=== PATIENT | male | born 1960 | race Caucasian/White ===

== ENCOUNTER 2024-10-18 18:28 | Inpatient (IN) ==
--- NOTE | 2024-10-18 18:47 | Emergency Department Note ---
ED Provider Note History of Present Illness Chief Complaint: Dizziness Stated Complaint: DIZZINESS, FALL, R SHOULDER & ARM PAIN Time Seen by Provider: 10/18/24 18:46 Source: patient Mode of arrival: ambulatory Limitations: no limitations Patient is a 64-year-old male who presents to the emergency department via EMS with complaints of dizziness and several falls over the last couple days. Patient notes that he is taking Coumadin but denies hitting his head. Patient has some bruising to his right upper extremity and concerns about weakness and swelling in his bilateral lower extremities. Patient also reports that he is having abdominal pain and nausea as well. Home Medications Medication Instructions Recorded Confirmed Type atorvastatin 40 mg tablet 40 mg PO DAILY 10/18/24 10/18/24 History escitalopram oxalate 10 mg tablet 10 mg PO DAILY 10/18/24 10/18/24 History fenofibrate micronized 134 mg 134 mg PO DAILY 10/18/24 10/18/24 History capsule gabapentin 100 mg capsule 100 mg PO HS 10/18/24 10/18/24 History lisinopril 20 mg tablet 20 mg PO DAILY 10/18/24 10/18/24 History meclizine 25 mg tablet 25 mg PO BID PRN Dizziness 10/18/24 10/18/24 History metformin 500 mg tablet 500 mg PO DAILY 10/18/24 10/18/24 History metoprolol tartrate 50 mg tablet 25 mg PO BID 10/18/24 10/18/24 History [id number]-uvi-[id number] acid-vit 1 tab PO DAILY 10/18/24 10/18/24 History K-lycop 400 mcg-20 mcg-370 mcg tablet (Men's 50 Plus Multivitamin) omeprazole 20 mg capsule,delayed 20 mg PO DAILYBB 10/18/24 10/18/24 History release oxybutynin chloride 10 mg 10 mg PO DAILY 10/18/24 10/18/24 History tablet,extended release 24 hr triamcinolone acetonide 0.1 % 1 applic topical BID PRN SKIN 10/18/24 10/18/24 History topical cream IRRITATIONS warfarin 5 mg tablet 5 mg PO DAILY 10/18/24 10/18/24 History Allergies Allergy/AdvReac Type Severity Reaction Status Date / Time No Known Allergies Allergy Verified 10/18/24 19:28 Past Med/Surg History Problem List (Updated 10/23/24 @ 01:12 by FRANCIS Zamora) Adjustment disorder with mixed anxiety and depressed mood Constipation Hematochezia Melena Traumatic hematoma of right upper arm Dyslipidemia, goal LDL below 70 HTN (hypertension) Ascending aortic aneurysm Nonobstructive atherosclerosis of coronary artery Hx of mitral valve replacement with mechanical valve H/O mechanical aortic valve replacement Upper GI bleeding (Acute) Symptomatic anemia (Acute) Calculus of ureter (Acute) Calculus of ureter (Acute) Elevated INR (Acute) Kidney calculus (Acute 09/17/13) Medical History GERD (gastroesophageal reflux disease) H/O: HTN (hypertension) Cardiac valvulopathy Surgical History Heart valve replaced Social History Smoking Status: Former smoker Do You Dip or Chew Tobacco: No; Hx Alcohol Use: No Hx Substance Use: Yes Preferred Language: Namibian Communication Ability: Effective Shoe Repairer Helper Required: No Beliefs That Will Affect Care: None Current Living Situation: Spouse Other Information That Helps Us Care for You: No Feels Safe at Home: Yes Safety Concerns: Feels Safe At This Time Assistive Devices: None Physical Exam Vital Signs Vital Signs - 24 hr 10/18/24 18:44 Pulse Rate 63 VITAL SIGNS - Vital signs and nursing notes were reviewed. GENERAL -64-year-old male appearing their stated age, who is in no acute distress. Communicates well with provider and answers questions appropriately. Patient's is at bedside. HEAD - Normocephalic, Atraumatic. No Puentes's Sign or Raccoon's Eyes. No depressed skull fractures palpable. EYES - PERRL with EOMI bilaterally. Sclera anicteric. Conjunctiva pink and moist with no injection. EARS - No deformities of external structures noted on gross examination bilaterally. NOSE - Midline and without cyanosis. No epistaxis or purulent drainage noted. NECK - Neck with FROM. Supple to palpation. No lymphadenopathy noted. LUNGS - Chest wall symmetric without accessory muscle use, intercostals retractions, or central cyanosis. Normal vesicular breath sounds CTA B/L. No wheezes, rales, or rhonchi appreciated. CARDIAC - RRR with S1/S2. No murmur, rubs, or gallops appreciated. ABDOMEN- Soft and nontender. No palpable masses or ascites. Patient has positive bowel sounds in all 4 quadrants. EXTREMITIES -patient has significant ecchymosis to his right upper extremity. Patient notes some discomfort in that area. Patient has full active range of motion of his bilateral upper and lower extremities. NEUROLOGIC -Sensory intact to light touch throughout. PSYCH - A&Ox3 and cooperates fully with examiner. Pt is very pleasant and interacts well with examiner Course Administered Medications Atorvastatin Calcium (Atorvastatin 40 Mg Tab) 40 mg PO DAILY [facility] Stop: 11/18/24 08:59 Last Admin: 10/22/24 07:47 Dose: 40 mg Documented By: Admin: 10/21/24 08:49 Dose: 40 mg Documented By: Admin: 10/20/24 08:01 Dose: 40 mg Documented By: Admin: 10/19/24 09:23 Dose: 40 mg Documented By: EDU Escitalopram Oxalate (Escitalopram Oxalate 10 Mg Tab) 5 mg PO DAILY [facility] Stop: 11/21/24 08:59 Last Admin: 10/22/24 07:46 Dose: 5 mg Documented By: SHARON Fenofibrate (Fenofibrate Nanocrystallized 145 Mg Tablet) 145 mg PO DAILY [facility] Stop: 11/18/24 08:59 Last Admin: 10/22/24 07:47 Dose: 145 mg Documented By: Admin: 10/21/24 08:49 Dose: 145 mg Documented By: Admin: 10/20/24 08:00 Dose: 145 mg Documented By: Admin: 10/19/24 09:23 Dose: 145 mg Documented By: EDU Gabapentin (Gabapentin 100 Mg Cap) 100 mg PO HS [facility] Stop: 11/18/24 20:59 Last Admin: 10/22/24 21:21 Dose: 100 mg Documented By: Admin: 10/21/24 21:19 Dose: 100 mg Documented By: Admin: 10/20/24 20:22 Dose: 100 mg Documented By: gale Admin: 10/19/24 21:11 Dose: 100 mg Documented By: JONATHAN Heparin Sodium/Dextrose (Heparin 75450 Unit/500 Ml D5w) 25,000 units in 500 mls @ 28 mls/hr IV .[id number] [facility]; Protocol Stop: 11/19/24 09:44 Last Titration: 10/22/24 18:53 Dose: 1,400 units/hr, 28 mls/hr Documented By: ISHAAN Co-signed By: JONATHAN Admin: 10/22/24 12:42 Dose: 1,400 units/hr, 28 mls/hr Documented By: SHARON Co-signed By: HARVEY Titration: 10/22/24 11:37 Dose: Infused Documented By: SHARON Co-signed By: HARVEY Admin: 10/22/24 08:56 Dose: Not Given Documented By: Titration: 10/22/24 06:48 Dose: 1,400 units/hr, 28 mls/hr Documented By: JONATHAN Co-signed By: SHARON Titration: 10/22/24 04:26 Dose: 1,400 units/hr, 28 mls/hr Documented By: JONATHAN Co-signed By: LORIE Titration: 10/21/24 21:16 Dose: 1,400 units/hr, 28 mls/hr Documented By: JONATHAN Co-signed By: FINA Admin: 10/21/24 17:10 Dose: 1,200 units/hr, 24 mls/hr Documented By: SHARON Co-signed By: HARVEY Titration: 10/21/24 17:10 Dose: Infused Documented By: SHARON Co-signed By: HARVEY Titration: 10/21/24 12:53 Dose: 1,200 units/hr, 24 mls/hr Documented By: SHARON Co-signed By: HARVEY Titration: 10/21/24 04:00 Dose: 0 units/hr, 0 mls/hr Documented By: rmt Co-signed By: YOSI Titration: 10/20/24 20:18 Dose: 1,200 units/hr, 24 mls/hr Documented By: rmt Co-signed By: YOSI Titration: 10/20/24 19:09 Dose: 1,000 units/hr, 20 mls/hr Documented By: ESG Co-signed By: YOSI Admin: 10/20/24 10:41 Dose: 1,000 units/hr, 20 mls/hr Documented By: ESG Co-signed By: KARSTEN Insulin Aspart (Insulin Aspart Per Unit Charge) 0 units SC ACHS [facility] Stop: 11/18/24 05:59 Last Admin: 10/22/24 21:21 Dose: Not Given Documented By: Admin: 10/22/24 16:56 Dose: 3 units Documented By: ISHAAN Co-signed By: HARVEY Admin: 10/22/24 12:42 Dose: 2 units Documented By: SHARON Co-signed By: HARVEY Admin: 10/22/24 07:45 Dose: 1 units Documented By: SHARON Co-signed By: DTT Admin: 10/21/24 21:20 Dose: Not Given Documented By: Admin: 10/21/24 17:46 Dose: Not Given Documented By: SHARON Magnesium Oxide (Magnesium Oxide 400 Mg Tab) 400 mg PO BID [facility] Stop: 11/20/24 09:14 Last Admin: 10/22/24 21:21 Dose: 400 mg Documented By: Admin: 10/22/24 07:46 Dose: 400 mg Documented By: Admin: 10/21/24 21:21 Dose: 400 mg Documented By: Admin: 10/21/24 11:13 Dose: 400 mg Documented By: SHARON Melatonin (Melatonin 3 Mg Tab) 3 mg PO HS PRN PRN Reason: Sleep Stop: 11/19/24 20:47 Last Admin: 10/22/24 21:23 Dose: 3 mg Documented By: Admin: 10/21/24 21:22 Dose: 3 mg Documented By: Admin: 10/20/24 21:20 Dose: 3 mg Documented By: gale Metoprolol Tartrate (Metoprolol Tartrate 25 Mg Tab) 25 mg PO BID [facility] Stop: 11/18/24 08:59 Last Admin: 10/22/24 21:22 Dose: 25 mg Documented By: Admin: 10/22/24 07:48 Dose: 25 mg Documented By: Admin: 10/21/24 21:21 Dose: 25 mg Documented By: Admin: 10/21/24 08:49 Dose: 25 mg Documented By: Admin: 10/20/24 20:22 Dose: 25 mg Documented By: gale Admin: 10/20/24 08:00 Dose: 25 mg Documented By: Admin: 10/19/24 21:12 Dose: 25 mg Documented By: Admin: 10/19/24 08:29 Dose: Not Given Documented By: EDU Miscellaneous (Remove Nicoderm Patch) 1 each N/A DAILY@0859 [facility] Stop: 11/21/24 08:58 Last Admin: 10/22/24 07:46 Dose: 1 each Documented By: SHARON Multivitamins/Minerals (Cerovite Adv Formula Tab) 1 tab PO DAILY [facility] Stop: 11/18/24 08:59 Last Admin: 10/22/24 07:47 Dose: 1 tab Documented By: Admin: 10/21/24 08:48 Dose: 1 tab Documented By: Admin: 10/20/24 08:00 Dose: 1 tab Documented By: Admin: 10/19/24 09:23 Dose: 1 tab Documented By: DEU Nicotine (Nicotine 7 Mg/24 Hr Tdsy) 1 patch TD QAM [facility] Stop: 11/20/24 10:59 Last Admin: 10/22/24 07:46 Dose: 1 patch Documented By: Admin: 10/21/24 11:13 Dose: 1 patch Documented By: SHARON Oxybutynin Chloride (Oxybutynin Chloride Xl 5 Mg Tabcr) 10 mg PO DAILY [facility] Stop: 11/18/24 08:59 Last Admin: 10/22/24 07:47 Dose: 10 mg Documented By: Admin: 10/21/24 08:49 Dose: 10 mg Documented By: Admin: 10/20/24 08:00 Dose: 10 mg Documented By: Admin: 10/19/24 09:23 Dose: 10 mg Documented By: EDU Pantoprazole Sodium (Pantoprazole 40 Mg Tab) 40 mg PO BID [facility] Stop: 11/18/24 20:59 Last Admin: 10/22/24 21:21 Dose: 40 mg Documented By: Admin: 10/22/24 07:48 Dose: 40 mg Documented By: Admin: 10/21/24 21:21 Dose: 40 mg Documented By: Admin: 10/21/24 08:49 Dose: 40 mg Documented By: Admin: 10/20/24 20:22 Dose: 40 mg Documented By: gale Admin: 10/20/24 07:59 Dose: 40 mg Documented By: Admin: 10/19/24 21:11 Dose: 40 mg Documented By: JONATHAN Potassium Phosphate (Pot Phosphate Monobasic W/ Sod Tab) 1 tab PO QID [facility] Stop: 11/19/24 08:59 Last Admin: 10/21/24 08:48 Dose: 1 tab Documented By: Admin: 10/20/24 20:23 Dose: 1 tab Documented By: gale Admin: 10/20/24 17:24 Dose: 1 tab Documented By: Admin: 10/20/24 14:12 Dose: 1 tab Documented By: Admin: 10/20/24 09:49 Dose: 1 tab Documented By: EDU Warfarin Sodium (Warfarin Sod 3 Mg Tab) 3 mg PO DAILY@1600 [facility] Stop: 11/19/24 15:59 Last Admin: 10/22/24 16:57 Dose: 3 mg Documented By: Admin: 10/21/24 17:09 Dose: 3 mg Documented By: Admin: 10/20/24 15:45 Dose: 3 mg Documented By: EDU Discontinued Medications Acetaminophen (Acetaminophen 325 Mg Tab) 650 mg PO NOW ONE Stop: 10/21/24 03:05 Last Admin: 10/21/24 03:42 Dose: 650 mg Documented By: gale Escitalopram Oxalate (Escitalopram Oxalate 10 Mg Tab) 10 mg PO DAILY [facility] Stop: 11/18/24 08:59 Last Admin: 10/21/24 08:49 Dose: 10 mg Documented By: Admin: 10/20/24 08:01 Dose: 10 mg Documented By: Admin: 10/19/24 09:23 Dose: 10 mg Documented By: EDU Furosemide (Furosemide Inj 20 Mg/2 Ml Vial) 10 mg IV ONE ONE Stop: 10/21/24 08:56 Last Admin: 10/21/24 11:11 Dose: 10 mg Documented By: SHARON Furosemide (Furosemide Inj 20 Mg/2 Ml Vial) 10 mg IV ONE ONE Stop: 10/22/24 08:32 Last Admin: 10/22/24 08:41 Dose: 10 mg Documented By: SHARON Furosemide (Furosemide Inj 20 Mg/2 Ml Vial) 10 mg IV ONE ONE Stop: 10/22/24 19:42 Last Admin: 10/22/24 21:19 Dose: 10 mg Documented By: JONATHAN Heparin Sodium (Porcine) (Heparin Sod (Porcine) 1000 Unit/Ml) 4,000 units IV NOW ONE Stop: 10/20/24 18:56 Last Admin: 10/20/24 20:19 Dose: 4,000 units Documented By: gale Co-signed By: JONATHAN Heparin Sodium (Porcine) (Heparin Sod (Porcine) 1000 Unit/Ml) 4,000 units IV NOW ONE Stop: 10/21/24 20:31 Last Admin: 10/21/24 21:17 Dose: 4,000 units Documented By: JONATHAN Co-signed By: HD Heparin Sodium/Dextrose (Heparin Iv Adult Wt-Based Low-Dose *No* Initial Bolus Protocol) 1 each IV Q15M [facility]; Protocol Stop: 10/20/24 16:00 Last Admin: 10/20/24 10:40 Dose: Not Given Documented By: EDU Hydromorphone HCl (Hydromorphone Inj 0.5 Mg/0.5 Ml Syr) 0.25 mg IV NOW STA Stop: 10/18/24 23:13 Last Admin: 10/18/24 23:27 Dose: 0.25 mg Documented By: PRISCILLA Pantoprazole Sodium 40 mg/ (Dextrose) 100 mls @ 20 mls/hr IV Q5H [facility] Stop: 11/17/24 21:29 Last Infusion: 10/19/24 19:50 Dose: Infused Documented By: Admin: 10/19/24 17:20 Dose: 8 mg/hr, 20 mls/hr Documented By: Infusion: 10/19/24 17:20 Dose: Infused Documented By: Admin: 10/19/24 13:31 Dose: 8 mg/hr, 20 mls/hr Documented By: Infusion: 10/19/24 11:29 Dose: Infused Documented By: Admin: 10/19/24 07:29 Dose: 8 mg/hr, 20 mls/hr Documented By: Infusion: 10/19/24 07:29 Dose: Infused Documented By: Admin: 10/19/24 03:05 Dose: 8 mg/hr, 20 mls/hr Documented By: Infusion: 10/19/24 03:05 Dose: Infused Documented By: Admin: 10/18/24 22:09 Dose: 8 mg/hr, 20 mls/hr Documented By: NOEL Pantoprazole Sodium 80 mg/ (Dextrose) 120 mls @ 480 mls/hr IV NOW ONE Stop: 10/18/24 21:26 Last Infusion: 10/18/24 22:40 Dose: Infused Documented By: Admin: 10/18/24 21:45 Dose: 480 mls/hr Documented By: SYMONE Phytonadione 10 mg/ Dextrose 51 mls @ 102 mls/hr IV ONE ONE Stop: 10/18/24 22:58 Last Infusion: 10/19/24 00:06 Dose: Infused Documented By: Admin: 10/18/24 23:33 Dose: 102 mls/hr Documented By: PRISCILLA Prothrombin Complex Concent ( (Human) 2,000 units/ Syringe) 80 mls @ 10 mls/min IV NOW STA Stop: 10/18/24 22:37 Last Admin: 10/18/24 23:03 Dose: 10 mls/min Documented By: PRISCILLA Sodium Chloride (Nss) 1,000 mls @ 125 mls/hr IV .Q8H [facility] Stop: 10/22/24 01:01 Last Infusion: 10/19/24 23:25 Dose: Infused Documented By: Admin: 10/19/24 17:22 Dose: 125 mls/hr Documented By: Infusion: 10/19/24 17:22 Dose: Infused Documented By: ESRoshni Admin: 10/19/24 09:54 Dose: 125 mls/hr Documented By: Infusion: 10/19/24 09:54 Dose: Infused Documented By: Infusion: 10/19/24 09:53 Dose: 125 mls/hr Documented By: Infusion: 10/19/24 08:38 Dose: 0 mls/hr Documented By: Admin: 10/19/24 01:16 Dose: 125 mls/hr Documented By: JONATHAN Piperacillin Sod/Tazobactam Sod (Zosyn) 4.5 gm in 100 mls @ 25 mls/hr IV Q8H [facility]; Protocol Stop: 10/24/24 13:59 Last Infusion: 10/21/24 09:12 Dose: Infused Documented By: Admin: 10/21/24 05:39 Dose: 25 mls/hr Documented By: gale Infusion: 10/21/24 01:30 Dose: Infused Documented By: gale Admin: 10/20/24 21:22 Dose: 25 mls/hr Documented By: gale Infusion: 10/20/24 18:29 Dose: Infused Documented By: Admin: 10/20/24 14:12 Dose: 25 mls/hr Documented By: Infusion: 10/20/24 10:41 Dose: Infused Documented By: Admin: 10/20/24 05:54 Dose: 25 mls/hr Documented By: Infusion: 10/20/24 01:10 Dose: Infused Documented By: Admin: 10/19/24 21:11 Dose: 25 mls/hr Documented By: Infusion: 10/19/24 19:00 Dose: Infused Documented By: [facility] Admin: 10/19/24 14:54 Dose: 25 mls/hr Documented By: EDU Piperacillin Sod/Tazobactam Sod (Zosyn) 4.5 gm in 100 mls @ 200 mls/hr IV ONE ONE; Protocol Stop: 10/19/24 08:29 Last Infusion: 10/19/24 09:55 Dose: Infused Documented By: Admin: 10/19/24 09:22 Dose: 200 mls/hr Documented By: EDU Insulin Aspart (Insulin Aspart Per Unit Charge) 0 units SC Q6 [facility] Stop: 11/18/24 05:59 Last Admin: 10/21/24 17:25 Dose: Not Given Documented By: Admin: 10/21/24 12:12 Dose: Not Given Documented By: Admin: 10/21/24 05:41 Dose: Not Given Documented By: gale Admin: 10/21/24 00:17 Dose: Not Given Documented By: gale Co-signed By: YOSI Admin: 10/20/24 18:27 Dose: 1 units Documented By: EDU Co-signed By: CLEMENTE Admin: 10/20/24 11:53 Dose: Not Given Documented By: Admin: 10/20/24 05:53 Dose: Not Given Documented By: Admin: 10/19/24 23:53 Dose: Not Given Documented By: Admin: 10/19/24 18:27 Dose: Not Given Documented By: Admin: 10/19/24 13:29 Dose: Not Given Documented By: Admin: 10/19/24 06:20 Dose: Not Given Documented By: YOSI Ioversol (Optiray 320 100ml) 93 ml IV ONCE ONE Stop: 10/18/24 21:29 Last Admin: 10/18/24 21:29 Dose: 93 ml Documented By: POLLY Ioversol (Optiray 320 125ml) 120 ml IV ONCE ONE Stop: 10/19/24 00:22 Last Admin: 10/19/24 00:22 Dose: 120 ml Documented By: DM Miscellaneous (Stat Iv/Im) 1 each N/A NOW STA Stop: 10/18/24 22:31 Last Admin: 10/19/24 05:54 Dose: Not Given Documented By: JONATHAN Pantoprazole Sodium (Pantoprazole Bolus/Drip) 1 each IV NOW STA Stop: 10/18/24 21:13 Last Admin: 10/18/24 22:51 Dose: 1 each Documented By: BOUCHRA Potassium Chloride (Potassium Chloride Crtab 20 Meq Tabcr) 20 meq PO NOW STA Stop: 10/22/24 19:42 Last Admin: 10/22/24 21:19 Dose: 20 meq Documented By: JONATHAN Medical Decision Making Differential Diagnosis GI bleed, anemia, intracranial hemorrhage, subdural hematoma, DVT, hematoma, fracture, dislocation, among others. Medical Records Attestation: I reviewed the patient's medical records. Home Medications was personally reviewed by me Laboratory Data Attestation: I reviewed the patient's lab results. 10/22/24 17:55 10/22/24 03:32 Lab Results 10/18/24 10/18/24 Range/Units 19:08 21:03 WBC 13.02 H (4.8-10.8) K/ul RBC 3.07 L (4.70-6.10) M/uL Hgb 7.6 L (14.0-18.0) g/dl Hct 24.2 L (42.0-52.0) % MCV 78.8 L (80.0-100.0) fL MCH 24.8 L (25.0-34.0) pg MCHC 31.4 L (32.0-36.0) g/dL RDW Std Deviation 53.9 H (36.4-46.3) fL RDW Coeff of Rubin 18.8 H (11.5-14.5) % Plt Count 362 (130-400) K/uL MPV 10.7 (9.4-12.4) fL Immature Gran % (Auto) 1.2 % Neut % (Auto) 82.9 % Lymph % (Auto) 11.0 % [place] % (Auto) 4.3 % Eos % (Auto) 0.2 % Baso % (Auto) 0.4 % Neut # (Auto) 10.79 H (1.40-6.50) K/uL Lymph # (Auto) 1.43 (1.20-3.40) K/uL [place] # (Auto) 0.56 (0.11-0.59) K/uL Eos # (Auto) 0.03 (0.00-0.50) K/uL Baso # (Auto) 0.05 (0.00-0.20) K/uL Immature Gran # (Auto) 0.16 (0.01-0.20) K/uL Hypochromasia Present Anisocytosis Present Ovalocytes 1+ Acanthocytes (Spur) 1+ PT Cancelled > 90.0 H INR Cancelled > 10.1 H* APTT Cancelled 104 H* PTT Ratio Cancelled 3.9 Sodium 135 L (136-145) mmol/L Potassium 4.5 (3.5-5.1) mmol/L Chloride 102 (98-107) mmol/L Carbon Dioxide 23 (21-32) mmol/L Anion Gap 10 (3-11) BUN 22 (6-23) mg/dl Creatinine 1.38 (0.6-1.4) mg/dl Est Cr Clr Drug Dosing 65.9 ml/min eGFR 56.40 BUN/Creatinine Ratio 15.9 (10-20) Glucose 139 H (70-99(Fasting)) mg/dl Calcium 9.2 (8.6-10.3) mg/dl Iron 29 L (35-175) mcg/dl TIBC 434 (250-450) mcg/dl Transferrin 310 (200-360) mg/dl Transferrin % Sat 7 L (20-50) % Ferritin 34.2 (8-388) ng/ml Total Bilirubin 0.7 (0.2-1.0) mg/dl AST 24 (13-39) U/L ALT 14 (7-52) U/L Alkaline Phosphatase 55 (34-104) U/L Troponin I High Sens 10.3 (0-20) pg/ml B-Natriuretic Peptide 96 (0-100) pg/ml Total Protein 6.6 (6.0-8.3) gm/dl Albumin 3.6 (3.4-5.0) gm/dl Globulin 3.0 (2.5-4.0) gm/dl Albumin/Globulin Ratio 1.2 (0.9-2) Blood Type A Positive Antibody Screen NEGATIVE Crossmatch See Detail MDM Narrative Patient is a 64-year-old male who presents to the emergency department via EMS with complaints of dizziness and several falls over the last couple days. Patient notes that he is taking Coumadin but denies hitting his head. Patient has some bruising to his right upper extremity and concerns about weakness and swelling in his bilateral lower extremities. Patient also reports that he is having abdominal pain and nausea as well. Patient was evaluated by myself and findings were noted in the physical exam above. Patient was ordered IV placement, lab work that included type and screen. Patient was also ordered a bilateral lower extremity ultrasound as well as an ultrasound of his right upper extremity. Patient was ordered a head CT, abdominal CT and chest x-ray as well. After discussion with the patient he reports that he has had some blood in his stool recently. A Hemoccult stool was done at bedside and the patient is heme positive. Patient was ordered a dose of Protonix as well. Patient's lab work resulted with an elevated white blood cell count of 13.02. Patient also had significant anemia with a hemoglobin of 7.6 and hematocrit of 24.2. Patient had PT of greater than 90, INR of greater than 10.1 and PTT of 104. Patient had no significant electrolyte imbalance noted. Patient had a BNP that was normal at 96 and a troponin that was negative at 10.3. I reached out and spoke with Dr. Turner of the [facility] hospitalist group. I gave him a full report on the patient's chief complaint, current status and the results of his lab work. I discussed with Dr. Turner that the patient's ultrasound results and CT results of not gotten back at this time however his lab work shows that he is anemic, he is symptomatic and he is heme positive. Dr. Turner verbalized understanding and is agreeable to admitting the patient under his hospitalist service for further evaluation and management. Please refer to the [facility]ist group's documentation for further evaluation and management this patient. While the patient was waiting for room placement in the hospital for admission his bilateral lower extremity ultrasound resulted negative for any evidence of DVT. The patient's right upper arm ultrasound resulted positive for a hematoma in his right upper arm. The patient's head CT was negative for any intracranial abnormalities. The patient's chest x-ray was also negative for any active disease in the chest and abdominal CT was negative for any acute findings. Impression Upper GI bleeding, Symptomatic anemia, Elevated INR Discharge Plan Visit Data Chief Complaint: Dizziness Stated Complaint: DIZZINESS, FALL, R SHOULDER & ARM PAIN ED Provider: Jennifer Arevalo ED Midlevel Provider: Taya Moore Discharge Problem: Upper GI bleeding, Symptomatic anemia, Elevated INR Patient Disposition: Admitted As Inpatient Condition: Fair Discharge Instructions Interventions: ED Discharge Assessment Last Done: 10/18/24 23:41 ED DC CONDITION Conditon at Discharge Condition at Discharge: Fair
[2024-10-18 19:55] LABS: Hematocrit (blood only) 24.2 % (42.0-52.0); Hemoglobin 7.6 g/dl (14.0-18.0); Immature Granulocytes # (auto) 0.16 K/uL (0.01-0.20); Immature Granulocytes % (auto) 1.2 %; Mean Corpuscular Hemoglobin 24.8 pg (25.0-34.0); Mean Corpuscular Volume 78.8 fL (80.0-100.0); Platelet Count 362 K/uL (130-400); RDW Standard Deviation 53.9 fL (36.4-46.3); Red Blood Count 3.07 M/uL (4.70-6.10); White Blood Count 13.02 K/ul (4.8-10.8)
[2024-10-18 20:13] LABS: Alanine Aminotransferase 14.0 U/L (7-52); Albumin Globulin Ratio 1.2 (0.9-2); Alkaline Phosphatase 55.0 U/L (34-104); Anion Gap 10.0 (3-11); Bilirubin,Total 0.7 mg/dl (0.2-1.0); Blood Urea Nitrogen 22.0 mg/dl (6-23); Calcium 9.2 mg/dl (8.6-10.3); Carbon Dioxide 23.0 mmol/L (21-32); Chloride 102.0 mmol/L (98-107); Creatinine Clr Calc Pharmacy 65.9 ml/min; Globulin 3.0 gm/dl (2.5-4.0); Glucose 139.0 mg/dl (70-99(Fasting)); Potassium 4.5 mmol/L (3.5-5.1); Sodium 135.0 mmol/L (136-145); Total Protein 6.6 gm/dl (6.0-8.3)
[2024-10-18 20:16] LABS: Acanthocytes 1+; Anisocytosis Present; Hypochromasia Present; Ovalocytes 1+
--- NOTE | 2024-10-18 20:36 | Emergency Department Note ---
ED Visit Note I was consulted by the Advanced Practice Provider, FRANCIS Brewster. I performed a substantive portion of the visit. This includes aspects of: History: Patient is a 64-year-old male presenting with dizziness. Patient reports that he has been feeling very dizzy and falling multiple times over the last few days. He is on Coumadin. He denies striking his head or loss of consciousness. He is complaining of some generalized abdominal pain. Denies any chest pain or shortness of breath. MDM: - Laboratory workup interpreted by myself showed normal WBC; anemia (Hgb 7.6 - decreased from 12.8 in April); stable electrolytes - INR/PT added to orders - Heme occult positive stool. Type and screen ordered. 2 units PRBC ordered to be on hold. - CXR image reviewed and interpreted by myself was negative for pneumonia, per my interpretation. - IV protonix bolus and drip ordered. - Patient likely having symptomatic anemia as a source for his dizziness. Will be admitted to inpatient hospitalist service for further evaluation and management. .
[2024-10-18] MEDS ORDERED: SODIUM CHLORIDE 0.9% 100 ML IV PRN (21:12)
[2024-10-18] MEDS: OPTIRAY 320 100ml IV ONE (21:29)
[2024-10-18 21:59] LABS: Iron 29.0 mcg/dl (35-175); Total Iron Binding Cap Calc 434.0 mcg/dl (250-450); Transferrin 310.0 mg/dl (200-360); Transferrin (FE) Percent Satur 7.0 % (20-50)
[2024-10-18] MEDS: PANTOprazole 40 MG in DEXTROSE 5% MINI-B 100 ML IV SCH (22:09)
[2024-10-18 22:21] LABS: Ferritin 34.2 ng/ml (8-388)
[2024-10-18 22:31] LABS: INR > 10.1 (0.9-1.1); Partial Thromboplastin Time 104 Seconds (21-31); Prothrombin Time > 90.0 Seconds (9.0-12.0)
--- NOTE | 2024-10-18 22:43 | XRay Report ---
Exam(s): XR CXR 1 VIEW EXAM: XR Chest, 1 View CLINICAL HISTORY: Reason for exam: dizzy, fall. TECHNIQUE: Frontal view of the chest. COMPARISON: No relevant prior studies available. FINDINGS: Lungs: Unremarkable. No acute infiltration, atelectasis or mass. Pleural space: Unremarkable. No pneumothorax or pleural fluid. Heart: The heart appears enlarged; however, this is likely magnified by AP portable technique. Mediastinum: Unremarkable. Normal mediastinal contour. Bones/joints: Previous sternotomy. IMPRESSION: No acute findings in the chest. Electronically signed by: Cali Collazo MD 10/18/24 22:42 PM
--- NOTE | 2024-10-18 22:45 | Ultrasound Report ---
Exam(s): US VENOUS BILATERAL LOWER EXTREMITIES EXAM: US Duplex Bilateral Lower Extremities Veins CLINICAL HISTORY: Reason for exam: bilateral leg swelling, pain in right leg. TECHNIQUE: Real-time duplex ultrasound scan of the bilateral lower extremity veins integrating B-mode two-dimensional vascular structure, Doppler spectral analysis, color flow Doppler imaging and compression. COMPARISON: No relevant prior studies available. FINDINGS: Right deep veins: Unremarkable. No DVT in the right common femoral, femoral, proximal deep femoral or popliteal veins. The veins demonstrate normal color flow, are normally compressible, with normal phasic flow and/or augmentation response. Right superficial veins: Unremarkable. No thrombus in the visualized right great saphenous vein. Left deep veins: Unremarkable. No DVT in the left common femoral, femoral, proximal deep femoral or popliteal veins. The veins demonstrate normal color flow, are normally compressible, with normal phasic flow and/or augmentation response. Left superficial veins: Unremarkable. No thrombus in the visualized left great saphenous vein. Soft tissues: No acute findings. No popliteal cyst. IMPRESSION: No evidence of DVT in the lower extremities. Electronically signed by: Cali Collazo MD 10/18/24 22:44 PM
--- NOTE | 2024-10-18 22:49 | Ultrasound Report ---
Exam(s): US VENOUS RIGHT UPPER EXTREMITY EXAM: US Duplex Right Upper Extremity Veins CLINICAL HISTORY: Reason for exam: pain, swelling, bruising. TECHNIQUE: Real-time duplex ultrasound scan of the right upper extremity veins integrating B-mode two-dimensional vascular structure, Doppler spectral analysis, color flow Doppler imaging and compression. COMPARISON: No relevant prior studies available. FINDINGS: Very limited study due to extensive edema. No venous thrombosis is identified in the right jugular vein or the veins of the right upper extremity; however, the axillary vein is not well seen. Complex masslike structure or collection in the medial upper right arm measuring 5.4 x 4.0 x 9.0 cm. This may represent a hematoma. This is not vascular. IMPRESSION: No thrombus identified; however, it is a limited exam, particularly in the visualization of the right axillary vein. Heterogeneous masslike structure or collection in the upper arm which does not appear very vascular. This may represent a hematoma. Electronically signed by: Cali Collazo MD 10/18/24 22:48 PM
[2024-10-18] MEDS: PANTOPRAZOLE BOLUS/DRIP IV STA (22:51)
--- NOTE | 2024-10-18 23:00 | CT Scan Report ---
Exam(s): CT HEAD Without Contrast EXAM: CT Head Without Intravenous Contrast CLINICAL HISTORY: Reason for exam: dizzy, fall. TECHNIQUE: Axial computed tomography images of the head/brain without intravenous contrast. CTDI is 37.42 mGy and DLP is 624.41 mGy-cm. Automated exposure control was utilized for the study. A dose lowering technique was utilized adhering to the principles of ALARA. COMPARISON: No relevant prior studies available. FINDINGS: Brain: No acute intracranial hemorrhage, edema or abnormal mass-effect. Ventricles: Unremarkable. No ventriculomegaly. Bones/joints: Unremarkable. No acute fracture. Soft tissues: Unremarkable. Sinuses: Unremarkable as visualized. No acute sinusitis. Mastoid air cells: Unremarkable as visualized. No mastoid effusion. IMPRESSION: No acute abnormality. Electronically signed by: Cali Collazo MD 10/18/24 22:59 PM
[2024-10-18] MEDS: PROTHROMBIN COMP CONC- KCENTRA 2,000 UNITS in SYRINGE 0 ML IV STA (23:03)
[2024-10-18] MEDS: HYDROmorphone INJ 0.5 MG/0.5 ML SYR IV STA (23:27)
--- NOTE | 2024-10-18 23:29 | CT Scan Report ---
Exam(s): CT ABDOMEN + PELVIS With Contrast IV Amt: 93ML OPTI 320 EXAM: CT Abdomen and Pelvis With Intravenous Contrast CLINICAL HISTORY: Reason for exam: nausea, vomiting, dizzy. TECHNIQUE: Axial computed tomography images of the abdomen and pelvis with intravenous contrast. CTDI is 37.42 mGy and DLP is 1417.76 mGy-cm. Automated exposure control was utilized for the study. A dose lowering technique was utilized adhering to the principles of ALARA. CONTRAST: Patient received 93ML OPTI 320 of IV contrast COMPARISON: CT abdomen and pelvis without contrast May 10, 2024. FINDINGS: ABDOMEN: Liver: Unremarkable. No mass. Gallbladder and bile ducts: Cholecystectomy. No ductal dilation. Pancreas: Unremarkable. No mass. No ductal dilation. Spleen: Unremarkable. No splenomegaly. Adrenals: Unremarkable. No mass. Kidneys and ureters: 6-7mm calculus in the left kidney with overlying scarring. No hydronephrosis. No ureteral dilatation or ureteral calculus. A second stone seen in the left kidney on the prior scan is not present. This is. Stomach and bowel: Unremarkable. No obstruction. No mucosal thickening. PELVIS: Appendix: No findings to suggest acute appendicitis. Bladder: Unremarkable. No mass. ABDOMEN and PELVIS: Intraperitoneal space: Unremarkable. No free air. No significant fluid collection. Bones/joints: No acute findings. Soft tissues: Small umbilical hernia containing only fat. Vasculature: Unremarkable. No abdominal aortic aneurysm. Lymph nodes: Unremarkable. No enlarged lymph nodes. IMPRESSION: No acute findings in the abdomen or pelvis. Electronically signed by: Cali Collazo MD 10/18/24 23:28 PM
[2024-10-18] MEDS: PHYTONADIONE 10 MG in DEXTROSE 5% 50 ML IV ONE (23:33)
--- NOTE | 2024-10-18 23:52 | History & Physical Report ---
Date of Service October 18, 2024 Assessment & Plan (1) Symptomatic anemia: Plan: 64-year-old male with past medical history significant for type 2 diabetes, dyslipidemia, hypertriglyceridemia, paroxysmal atrial fibrillation, ascending aortic enlargement, hypertension, obesity, GERD, colon polyps, overactive bladder, status post aortic valve replacement, status post mitral valve replacement, general anxiety disorder, comes because of the dizziness and fall and rectal bleed and found to have anemia. Patient states he is feeling dizzy for last few days. Last Sunday in the camp he fell down to the right side. Did not hit his head. No loss of consciousness. Again he fell once in the bathroom, went down slowly. And today dizziness was worse which prompted him to come to the ER. He also has a bruise and swelling in his right arm from the fall. And also swelling in his right leg. Has pain in in the right leg and arm. Denies any chest pain or shortness of breath. No headache. No runny nose or sore throat. No cough. Afebrile. No nausea. No abdominal pain. Also having some blood in the stools that he thought it was from hemorrhoids. Denies any blood in the urine. Currently hemodynamics are okay. Symptomatic anemia Presents with dizziness and fall Hemoglobin 7.6 Hemoglobin was 12.8 on 05/10/2024 INR greater than 10 Received IV vitamin K 10 mg and Kcentra 2 units of PRBC on hold Close monitor H&H and transfuse if further drops down- hb 6.2 in am labs, ordered two units prbc Close monitor hemodynamics CT head no acute findings. CT abdomen pelvis no acute findings Telemetry Rectal bleed Anemia On Protonix drip Got vitamin K and Kcentra for elevated INR Coumadin on hold N.p.o., IV fluids getting two units prbc follow h and h Telemetry GI consult Right lower extremity swelling and right upper extremity swelling Since fall Doppler is negative CTA right upper ext active venous bleeding in biceps- d/w vscualr surgery- to elevated upper extremity nd monitor. If swelling becomes large to consult general surgery will monitor Diabetes Hold p.o. 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 Hold lisinopril for now Hyperlipidemia and hypertriglyceridemia Continue atorvastatin and fenofibrate GERD Currently on PPI drip History of atrial fibrillation/flutter On metoprolol with hold parameters Holding Coumadin for now Dilated aortic root and ascending aorta at 3.9 and 4.1 cm Follow-up Generalized anxiety disorder On Lexapro DVT prophylaxis SCDs for now Disposition Telemetry Full code. History of Present Illness Chief Complaint: Dizziness Primary Care Provider: Reinaldo Zavaleta MD 64-year-old male with past medical history significant for type 2 diabetes, dyslipidemia, hypertriglyceridemia, paroxysmal atrial fibrillation, ascending aortic enlargement, hypertension, obesity, GERD, colon polyps, overactive bladder, status post aortic valve replacement, status post mitral valve replace ment, general anxiety disorder, comes because of the dizziness and fall and rectal bleed and found to have anemia. Patient states he is feeling dizzy for last few days. Last Sunday in the camp he fell down to the right side. Did not hit his head. No loss of consciousness. Again he fell once in the bathroom, went down slowly. And today dizziness was worse which prompted him to come to the ER. He also has a bruise and swelling in his right arm from the fall. And also swelling in his right leg. Has pain in in the right leg and arm. Denies any chest pain or shortness of breath. No headache. No runny nose or sore throat. No cough. Afebrile. No nausea. No abdominal pain. Also having some blood in the stools that he thought it was from hemorrhoids. Denies any blood in the urine. Currently hemodynamics are okay. Past medical history. As mentioned above Past surgical history. Cardiac cath. Colonoscopy with biopsy. Cystoscopy. Lithotripsy. Laparoscopic cholecystectomy. Removal of kidney stone. Bilateral cataracts. Replacement aortic valve. Mitral valve replacement. Social history. . Quit smoking 2012. Smoked 1 pack a day for 30 years. No alcohol use. No drug use. Family history. Father had prostate cancer. Mother had diabetes and hypertension. Allergies Allergy/AdvReac Type Severity Reaction Status Date / Time No Known Allergies Allergy Verified 10/18/24 19:28 Home Medications Medication Instructions Recorded Confirmed Type atorvastatin 40 mg tablet 40 mg PO DAILY 10/18/24 10/18/24 History escitalopram oxalate 10 mg tablet 10 mg PO DAILY 10/18/24 10/18/24 History fenofibrate micronized 134 mg 134 mg PO DAILY 10/18/24 10/18/24 History capsule gabapentin 100 mg capsule 100 mg PO HS 10/18/24 10/18/24 History lisinopril 20 mg tablet 20 mg PO DAILY 10/18/24 10/18/24 History meclizine 25 mg tablet 25 mg PO BID PRN Dizziness 10/18/24 10/18/24 History metformin 500 mg tablet 500 mg PO DAILY 10/18/24 10/18/24 History metoprolol tartrate 50 mg tablet 25 mg PO BID 10/18/24 10/18/24 History [id number] acid-vit 1 tab PO DAILY 10/18/24 10/18/24 History K-lycop 400 mcg-20 mcg-370 mcg tablet (Men's 50 Plus Multivitamin) omeprazole 20 mg capsule,delayed 20 mg PO DAILYBB 10/18/24 10/18/24 History release oxybutynin chloride 10 mg 10 mg PO DAILY 10/18/24 10/18/24 History tablet,extended release 24 hr triamcinolone acetonide 0.1 % 1 applic topical BID PRN SKIN 10/18/24 10/18/24 History topical cream IRRITATIONS warfarin 5 mg tablet 5 mg PO DAILY 10/18/24 10/18/24 History Past Med/Surg History Problem List (Updated 10/18/24 @ 23:59 by Beck Turner MD) Symptomatic anemia Calculus of ureter (Acute) Calculus of ureter (Acute) Elevated INR (Acute) Kidney calculus (Acute 09/17/13) Medical History (Updated 10/18/24 @ 23:59 by Beck Turner MD) GERD (gastroesophageal reflux disease) H/O: HTN (hypertension) Cardiac valvulopathy Surgical History (Updated 03/03/23 @ 13:04 by Santos Jonas MD) Heart valve replaced Social History Smoking Status: Former smoker Do You Dip or Chew Tobacco: No; Hx Alcohol Use: No Hx Substance Use: Yes Preferred Language: Uzbek Communication Ability: Effective Major Gifts Director Required: No Beliefs That Will Affect Care: None Current Living Situation: Spouse Other Information That Helps Us Care for You: No Feels Safe at Home: Yes Safety Concerns: Feels Safe At This Time Assistive Devices: None Review of Systems Review of Systems: All systems reviewed & are unremarkable except as noted in HPI & below Physical Exam Physical Exam: General-Not in acute distress Head- atraumatic Eyes- PERRL. ENT- oropharynx clear Neck- supple, no JVD. Lungs- clear to auscultation no wheezing or crackles. Heart- regular rhythm; mechanical sounds in aortic area., no gallop. Abdomen- normal bowel sounds, soft, nontender, no distension Extremities- right arm is swollen and bruise seen. Left leg is swollen Neuro- alert, oriented PERRL, no facial palsy; no dysarthria; moves extremities Results & Data Results & Data Vital Signs (Past 12 Hours) Vital Signs Temp Pulse Pulse Resp BP BP Pulse Ox 10/18/24 22:44 73 10/18/24 22:00 84 20 148/76 H 95 10/18/24 21:00 67 20 108/77 99 10/18/24 20:00 70 20 133/77 95 10/18/24 19:32 68 20 114/78 98 10/18/24 18:55 66 20 98 10/18/24 18:49 98 10/18/24 18:44 63 10/18/24 18:32 36.8 C 65 20 107/51 L 98 10/18/24 18:23 36.8 C 65 20 105/51 L 98 O2 Del Method 10/18/24 22:44 10/18/24 22:00 Room Air 10/18/24 21:00 Room Air 10/18/24 20:00 Room Air 10/18/24 19:32 Room Air 10/18/24 18:55 Room Air 10/18/24 18:49 Room Air 10/18/24 18:44 10/18/24 18:32 Room Air 10/18/24 18:23 Room Air Diagnostic Findings Laboratory Results WBC 13.02 K/ul (4.8-10.8) H 10/18/24 19:08 RBC 3.07 M/uL (4.70-6.10) L 10/18/24 19:08 Hgb 7.6 g/dl (14.0-18.0) L 10/18/24 19:08 Hct 24.2 % (42.0-52.0) L 10/18/24 19:08 MCV 78.8 fL (80.0-100.0) L 10/18/24 19:08 MCH 24.8 pg (25.0-34.0) L 10/18/24 19:08 MCHC 31.4 g/dL (32.0-36.0) L 10/18/24 19:08 RDW Std Deviation 53.9 fL (36.4-46.3) H 10/18/24 19:08 RDW Coeff of Rubin 18.8 % (11.5-14.5) H 10/18/24 19:08 Plt Count 362 K/uL (130-400) 10/18/24 19:08 MPV 10.7 fL (9.4-12.4) 10/18/24 19:08 Immature Gran % (Auto) 1.2 % 10/18/24 19:08 Neut % (Auto) 82.9 % 10/18/24 19:08 Lymph % (Auto) 11.0 % 10/18/24 19:08 [place] % (Auto) 4.3 % 10/18/24 19:08 Eos % (Auto) 0.2 % 10/18/24 19:08 Baso % (Auto) 0.4 % 10/18/24 19:08 Neut # (Auto) 10.79 K/uL (1.40-6.50) H 10/18/24 19:08 Lymph # (Auto) 1.43 K/uL (1.20-3.40) 10/18/24 19:08 [place] # (Auto) 0.56 K/uL (0.11-0.59) 10/18/24 19:08 Eos # (Auto) 0.03 K/uL (0.00-0.50) 10/18/24 19:08 Baso # (Auto) 0.05 K/uL (0.00-0.20) 10/18/24 19:08 Immature Gran # (Auto) 0.16 K/uL (0.01-0.20) 10/18/24 19:08 Hypochromasia Present 10/18/24 19:08 Anisocytosis Present 10/18/24 19:08 Ovalocytes 1+ 10/18/24 19:08 Acanthocytes (Spur) 1+ 10/18/24 19:08 PT > 90.0 Seconds (9.0-12.0) H 10/18/24 21:03 INR > 10.1 (0.9-1.1) H* 10/18/24 21:03 APTT 104 Seconds (21-31) H* 10/18/24 21:03 PTT Ratio 3.9 10/18/24 21:03 Sodium 135 mmol/L (136-145) L 10/18/24 19:08 Potassium 4.5 mmol/L (3.5-5.1) 10/18/24 19:08 Chloride 102 mmol/L (98-107) 10/18/24 19:08 Carbon Dioxide 23 mmol/L (21-32) 10/18/24 19:08 Anion Gap 10 (3-11) 10/18/24 19:08 BUN 22 mg/dl (6-23) 10/18/24 19:08 Creatinine 1.38 mg/dl (0.6-1.4) 10/18/24 19:08 Est Cr Clr Drug Dosing 65.9 ml/min 10/18/24 19:08 eGFR 56.40 10/18/24 19:08 BUN/Creatinine Ratio 15.9 (10-20) 10/18/24 19:08 Glucose 139 mg/dl (70-99(Fasting)) H 10/18/24 19:08 Calcium 9.2 mg/dl (8.6-10.3) 10/18/24 19:08 Iron 29 mcg/dl (35-175) L 10/18/24 19:08 TIBC 434 mcg/dl (250-450) 10/18/24 19:08 Transferrin 310 mg/dl (200-360) 10/18/24 19:08 Transferrin % Sat 7 % (20-50) L 10/18/24 19:08 Ferritin 34.2 ng/ml (8-388) 10/18/24 19:08 Total Bilirubin 0.7 mg/dl (0.2-1.0) 10/18/24 19:08 AST 24 U/L (13-39) 10/18/24 19:08 ALT 14 U/L (7-52) 10/18/24 19:08 Alkaline Phosphatase 55 U/L (34-104) 10/18/24 19:08 Troponin I High Sens 10.3 pg/ml (0-20) 10/18/24 19:08 B-Natriuretic Peptide 96 pg/ml (0-100) 10/18/24 19:08 Total Protein 6.6 gm/dl (6.0-8.3) 10/18/24 19:08 Albumin 3.6 gm/dl (3.4-5.0) 10/18/24 19:08 Globulin 3.0 gm/dl (2.5-4.0) 10/18/24 19:08 Albumin/Globulin Ratio 1.2 (0.9-2) 10/18/24 19:08 Blood Type A Positive 10/18/24 21:03 Antibody Screen NEGATIVE 10/18/24 21:03 Crossmatch See Detail 10/18/24 21:03 Impressions Abdomen/Pelvis CT 10/18/24 18:55 Exam(s): CT ABDOMEN + PELVIS With Contrast IV Amt: 93ML OPTI 320 EXAM: CT Abdomen and Pelvis With Intravenous Contrast CLINICAL HISTORY: Reason for exam: nausea, vomiting, dizzy. TECHNIQUE: Axial computed tomography images of the abdomen and pelvis with intravenous contrast. CTDI is 37.42 mGy and DLP is 1417.76 mGy-cm. Automated exposure control was utilized for the study. A dose lowering technique was utilized adhering to the principles of ALARA. CONTRAST: Patient received 93ML OPTI 320 of IV contrast COMPARISON: CT abdomen and pelvis without contrast May 10, 2024. FINDINGS: ABDOMEN: Liver: Unremarkable. No mass. Gallbladder and bile ducts: Cholecystectomy. No ductal dilation. Pancreas: Unremarkable. No mass. No ductal dilation. Spleen: Unremarkable. No splenomegaly. Adrenals: Unremarkable. No mass. Kidneys and ureters: 6-7mm calculus in the left kidney with overlying scarring. No hydronephrosis. No ureteral dilatation or ureteral calculus. A second stone seen in the left kidney on the prior scan is not present. This is. Stomach and bowel: Unremarkable. No obstruction. No mucosal thickening. PELVIS: Appendix: No findings to suggest acute appendicitis. Bladder: Unremarkable. No mass. ABDOMEN and PELVIS: Intraperitoneal space: Unremarkable. No free air. No significant fluid collection. Bones/joints: No acute findings. Soft tissues: Small umbilical hernia containing only fat. Vasculature: Unremarkable. No abdominal aortic aneurysm. Lymph nodes: Unremarkable. No enlarged lymph nodes. IMPRESSION: No acute findings in the abdomen or pelvis. Electronically signed by: Cali Collazo MD 10/18/24 23:28 PM Chest X-Ray 10/18/24 18:55 Exam(s): XR CXR 1 VIEW EXAM: XR Chest, 1 View CLINICAL HISTORY: Reason for exam: dizzy, fall. TECHNIQUE: Frontal view of the chest. COMPARISON: No relevant prior studies available. FINDINGS: Lungs: Unremarkable. No acute infiltration, atelectasis or mass. Pleural space: Unremarkable. No pneumothorax or pleural fluid. Heart: The heart appears enlarged; however, this is likely magnified by AP portable technique. Mediastinum: Unremarkable. Normal mediastinal contour. Bones/joints: Previous sternotomy. IMPRESSION: No acute findings in the chest. Electronically signed by: Cali Collazo MD 10/18/24 22:[address] 10/18/24 18:55 Exam(s): CT HEAD Without Contrast EXAM: CT Head Without Intravenous Contrast CLINICAL HISTORY: Reason for exam: dizzy, fall. TECHNIQUE: Axial computed tomography images of the head/brain without intravenous contrast. CTDI is 37.42 mGy and DLP is 624.41 mGy-cm. Automated exposure control was utilized for the study. A dose lowering technique was utilized adhering to the principles of ALARA. COMPARISON: No relevant prior studies available. FINDINGS: Brain: No acute intracranial hemorrhage, edema or abnormal mass-effect. Ventricles: Unremarkable. No ventriculomegaly. Bones/joints: Unremarkable. No acute fracture. Soft tissues: Unremarkable. Sinuses: Unremarkable as visualized. No acute sinusitis. Mastoid air cells: Unremarkable as visualized. No mastoid effusion. IMPRESSION: No acute abnormality. Electronically signed by: Cali Collazo MD 10/18/24 22:59 PM Venous Doppler Study 10/18/24 18:55 Exam(s): US VENOUS RIGHT UPPER EXTREMITY EXAM: US Duplex Right Upper Extremity Veins CLINICAL HISTORY: Reason for exam: pain, swelling, bruising. TECHNIQUE: Real-time duplex ultrasound scan of the right upper extremity veins integrating B-mode two-dimensional vascular structure, Doppler spectral analysis, color flow Doppler imaging and compression. COMPARISON: No relevant prior studies available. FINDINGS: Very limited study due to extensive edema. No venous thrombosis is identified in the right jugular vein or the veins of the right upper extremity; however, the axillary vein is not well seen. Complex masslike structure or collection in the medial upper right arm measuring 5.4 x 4.0 x 9.0 cm. This may represent a hematoma. This is not vascular. IMPRESSION: No thrombus identified; however, it is a limited exam, particularly in the visualization of the right axillary vein. Heterogeneous masslike structure or collection in the upper arm which does not appear very vascular. This may represent a hematoma. Electronically signed by: Cali Collazo MD 10/18/24 22:48 PM ECG Additional Comments: ECG. Sinus rhythm first-degree AV block at a rate of 76. Left ventricular hypertrophy. QTc 463 Code Status & VTE Plan VTE Prophylaxis Plan VTE Prophylaxis will be ordered: Yes
[2024-10-19] MEDS: OPTIRAY 320 125ml IV ONE (00:22)
[2024-10-19 00:30] LABS: Fibrinogen 357 mg/dl (184-400)
[2024-10-19 00:53] LABS: ANTI-Xa, LMWH(Low Molecular Wt < 0.10 IU/ML (< 0.10)
[2024-10-19] MEDS ORDERED: GLUCAGON FOR INJ 1 MG VIAL SQ PRN (01:02)
[2024-10-19] MEDS ORDERED: CARBOHYDRATES FOR HYPOGLYCEMIA PO PRN (01:02)
[2024-10-19] MEDS ORDERED: HYDROmorphone INJ 0.5 MG/0.5 ML SYR IV PRN (01:02)
[2024-10-19] MEDS ORDERED: GLUCOSE 40% GEL 15 GM TUBE PO PRN (01:02)
[2024-10-19] MEDS ORDERED: NITROGLYCERIN SL 0.4 MG/TAB TAB SL PRN (01:02)
[2024-10-19] MEDS ORDERED: GLUCOSE 10 TAB/TUBE PO PRN (01:02)
[2024-10-19] MEDS ORDERED: MECLIZINE HCL 25 MG TAB PO PRN (01:02)
[2024-10-19] MEDS ORDERED: DEXTROSE 50% 50 ML SYRINGE IV PRN (01:02)
[2024-10-19] MEDS: SODIUM CHLORIDE 0.9% 1,000 ML IV SCH (01:16)
--- NOTE | 2024-10-19 02:34 | CT Scan Report ---
EXAM: CT angio humerus RT wo/w con CLINICAL HISTORY: Right arm hematoma. inr 10. could be active bleeding. TECHNIQUE: CT angiography study of the right arm vessels with IV contrast was performed and multiple axial sections were obtained with coronal and sagittal reconstructions. 120 ml Optiray 320 was administered. One of the following dose reduction techniques was utilized for this exam: Automated exposure control, adjustment of the mA and/or kV according to patient size, and use of iterative reconstruction. One of these 3D techniques was utilized: Maximum Intensity Pixel (MIP), 3D Reconstructed Images, Volume Rendered Images, Surface Shaded Rendering. COMPARISON: None. FINDINGS: Vessels: Right subclavian, axillary, brachial, radial, and ulnar arteries are patent without evidence of stenosis, occlusion, dissection, or pseudoaneurysm. No active arterial contrast extravasation. Musculoskeletal: Hypodense intramuscular collection within the biceps muscle belly of the upper arm, measuring approximately 54 × 37 mm, with surrounding muscle edema. The collection demonstrates faint hyperdensities, measuring 38 HU pre-contrast and 62 HU post-contrast, findings suggestive of active bleeding, likely venous in origin. No acute fracture or destructive bony lesion. Soft tissues: Marked diffuse subcutaneous soft tissue edema involving the right upper arm, extending into adjacent fascial planes. No subcutaneous emphysema or foreign body. Other: Surrounding fat planes are partially obscured by edema. No abnormal lymphadenopathy identified in the scanned field. IMPRESSION: 1. Intramuscular hematoma within the right biceps muscle belly, with pre- to post-contrast enhancement (38 ? 62 HU), suggestive of active bleeding, likely venous in origin. 2. Marked diffuse subcutaneous soft tissue edema of the right upper arm. 3. No CT angiographic evidence of arterial injury, pseudoaneurysm, or active arterial contrast extravasation. Electronically signed by Addi Rico 10-19-2024 02:34 AM
[2024-10-19 03:40] LABS: Appearance Urine Clear (Clear); Bacteria Urine Automated None Seen (None Seen); Glucose Urine UA Negative (Negative); RBC Urine Automated >20 /hpf (0-2)
[2024-10-19] MEDS: STAT IV/IM STA (05:54)
[2024-10-19] MEDS: INSULIN ASPART PER UNIT CHARGE SC SCH (06:20)
[2024-10-19 07:16] LABS: Hematocrit (blood only) 19.0 % (42.0-52.0); Hemoglobin 6.2 g/dl (14.0-18.0); Mean Corpuscular Hemoglobin 25.0 pg (25.0-34.0); Mean Corpuscular Volume 76.6 fL (80.0-100.0); Platelet Count 316 K/uL (130-400); RDW Standard Deviation 52.4 fL (36.4-46.3); Red Blood Count 2.48 M/uL (4.70-6.10); White Blood Count 9.02 K/ul (4.8-10.8)
[2024-10-19] MEDS ORDERED: SODIUM CHLORIDE 0.9% 100 ML IV PRN ×2 (07:20→07:24)
[2024-10-19 07:21] LABS: Immature Granulocytes # (auto) 0.05 K/uL (0.01-0.20); Immature Granulocytes % (auto) 0.6 %; Microcytosis Present; Ovalocytes 1+; Polychromasia 1+
[2024-10-19 07:26] LABS: Anion Gap 4.0 (3-11); Blood Urea Nitrogen 25.0 mg/dl (6-23); Calcium 8.6 mg/dl (8.6-10.3); Carbon Dioxide 26.0 mmol/L (21-32); Chloride 104.0 mmol/L (98-107); Creatinine Clr Calc Pharmacy 66.5 ml/min; Glucose 125.0 mg/dl (70-99(Fasting)); Magnesium 2.0 mg/dl (1.7-2.4); Potassium 4.9 mmol/L (3.5-5.1); Sodium 134.0 mmol/L (136-145)
[2024-10-19 07:32] LABS: INR 1.4 (0.9-1.1); Prothrombin Time 14.6 Seconds (9.0-12.0)
--- NOTE | 2024-10-19 07:36 | Hospitalist Progress Note ---
Date of Service October 19, 2024 Assessment & Plan (1) Symptomatic anemia: Plan: 64-year-old male with past medical history significant for type 2 diabetes, dyslipidemia, hypertriglyceridemia, paroxysmal atrial fibrillation, ascending aortic enlargement, hypertension, obesity, GERD, colon polyps, overactive bladder, status post aortic valve replacement, status post mitral valve replacement, general anxiety disorder, comes because of the dizziness and fall and rectal bleed and found to have anemia. Patient states he is feeling dizzy for last few days. Last Sunday in the camp he fell down to the right side. Did not hit his head. No loss of consciousness. Again he fell once in the bathroom, went down slowly. And today dizziness was worse which prompted him to come to the ER. He also has a bruise and swelling in his right arm from the fall. And also swelling in his right leg. Has pain in in the right leg and arm. Denies any chest pain or shortness of breath. No headache. No runny nose or sore throat. No cough. Afebrile. No nausea. No abdominal pain. Also having some blood in the stools that he thought it was from hemorrhoids. Denies any blood in the urine. Currently hemodynamics are okay. Symptomatic anemia Presents with dizziness and fall Hemoglobin 7.6 on admission, now down to 6.2 (8 AM) Hemoglobin was 12.8 on 05/10/2024 INR greater than 10 on admission Received IV vitamin K 10 mg and Kcentra --> now INR down to 1.4 (831 AM) 2 units of PRBC on hold -> transfusing as Hgb 6.[address] head no acute findings. CT abdomen pelvis no acute findings Telemetry Right lower extremity swelling and right upper extremity swelling Since fall Doppler of LEs is negative CTA right upper ext active venous bleeding in biceps- d/w vascular surgery- to elevate upper extremity and monitor. If swelling becomes large to consult general surgery R upper extremity edematous, pt reports he had some finger numbness when he presented here but now it feels better - will consult w/ gen. surgery further - cont. to closely monitor Rectal bleed Anemia On Protonix drip Got vitamin K and Kcentra for elevated INR Coumadin on hold N.p.o., IV fluids getting two units prbc follow h and h Telemetry GI consult Diabetes Hold p.o. 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 valves, will need resume as soon as possible Cardiology consulted Mild nonobstructive CAD On cardiac cath 2016 Continue statin and metoprolol tartrate Hypertension Continue metoprolol with holding parameters. Hold lisinopril for now Hyperlipidemia and hypertriglyceridemia Continue atorvastatin and fenofibrate History of atrial fibrillation/flutter On metoprolol with hold parameters Holding Coumadin for now GERD Currently on PPI drip Dilated aortic root and ascending aorta at 3.9 and 4.1 cm Follow-up Generalized anxiety disorder On Lexapro DVT prophylaxis SCDs for now Disposition Telemetry Full code. Admission and Anticipated Discharge Date Admission Date: October 18, 2024 Subjective Pt seen in follow up of symptomatic anemia, supratherap. INR (anticoag.for [facility] valves), s/p fall, R arm swelling and CTA c/w active venous bleed Also w/ GI bleed, on PPI (pt feels it's hemorrhoids and not significant) Currently lying in bed in NAD He is awake, alert, oriented, answers appropriately. Says he fell a week ago and hurt his arm, at home his arm was hurting but did not feel it was significant. Also reports "bruising was not that bad". Seems as edema and ecchymosis got progressively worse. Says he checks his INR monthly - has a device at home. Last time checked about 2 weeks ago (prior to his camping trip). Also reports some numbness in his fingers when he first presented , now says it's much better. Hgb down 6.2 this AM - pRBCs ordered, pt aware of plan for transfusion Denies chest pain, shortness of breath. Was dizzy at home when he fell in the bathroom. Denies fever, chills, abd. pain, n/v. Re-assessed later again - RUE on pillow. Says he was diagnosed with neuropathy by his PCP some weeks ago. R hand fingers with more numbness after he fell 1 week ago but byron feels improved also able to move hand and fingers w/o difficulty. Review of Systems Review of Systems: All systems reviewed & are unremarkable except as noted in Subjective Physical Exam Physical Exam: General-Not in acute distress Head- NC/AT Eyes- PERRL. Neck- supple, no JVD. Lungs- clear to auscultation no wheezing or crackles. Heart- regular rhythm Abdomen- normal bowel sounds, soft, nontender, no distension Extremities- right arm w/ edema, ecchymosis in upper arm and also right chest. Able to move fingers, currently denies numbness in fingers. Left leg w/ mild edema Neuro- alert, oriented PERRL, no facial palsy; no dysarthria; moves extremities Results & Data Results & Data Vital Signs (Past 12 Hours) Vital Signs Temp Pulse Pulse Resp BP BP Pulse Ox 10/19/24 07: 36.9 C 81 20 101/65 91 10/19/24 01:07 36.5 C 75 16 142/80 H 98 10/19/24 00:45 36.5 C 75 16 142/80 H 98 10/18/24 23:41 74 20 140/80 95 10/18/24 22:44 73 10/18/24 22:00 84 20 148/76 H 95 10/18/24 21:00 67 20 108/77 99 10/18/24 20:00 70 20 133/77 95 O2 Del Method 10/19/24 07:25 Room Air 10/19/24 01:07 Room Air 10/19/24 00:45 Room Air 10/18/24 23:41 Room Air 10/18/24 22:44 10/18/24 22:00 Room Air 10/18/24 21:00 Room Air 10/18/24 20:00 Room Air Laboratory Results 10/19/24 10/19/24 10/19/24 Range/Units 07:19 06:41 06:19 WBC 9.02 (4.8-10.8) K/ul RBC 2.48 L (4.70-6.10) M/uL Hgb 6.2 L* (14.0-18.0) g/dl Hct 19.0 L* (42.0-52.0) % MCV 76.6 L (80.0-100.0) fL MCH 25.0 (25.0-34.0) pg MCHC 32.6 (32.0-36.0) g/dL RDW Std Deviation 52.4 H (36.4-46.3) fL RDW Coeff of Rubin 18.9 H (11.5-14.5) % Plt Count 316 (130-400) K/uL MPV 10.5 (9.4-12.4) fL Immature Gran % (Auto) 0.6 % Neut % (Auto) 64.6 % Lymph % (Auto) 26.8 % [place] % (Auto) 6.3 % Eos % (Auto) 1.3 % Baso % (Auto) 0.4 % Neut # (Auto) 5.82 (1.40-6.50) K/uL Lymph # (Auto) 2.42 (1.20-3.40) K/uL [place] # (Auto) 0.57 (0.11-0.59) K/uL Eos # (Auto) 0.12 (0.00-0.50) K/uL Baso # (Auto) 0.04 (0.00-0.20) K/uL Immature Gran # (Auto) 0.05 (0.01-0.20) K/uL Polychromasia 1+ Hypochromasia Anisocytosis Microcytosis Present Ovalocytes 1+ Acanthocytes (Spur) PT 14.6 H INR 1.4 H APTT PTT Ratio Fibrinogen (184-400) mg/dl Heparin Anti-Xa, LM Wt (< 0.10) IU/ML Sodium 134 L (136-145) mmol/L Potassium 4.9 (3.5-5.1) mmol/L Chloride 104 (98-107) mmol/L Carbon Dioxide 26 (21-32) mmol/L Anion Gap 4 (3-11) BUN 25 H (6-23) mg/dl Creatinine 1.43 H (0.6-1.4) mg/dl Est Cr Clr Drug Dosing 66.5 ml/min eGFR 54.04 BUN/Creatinine Ratio 17.5 (10-20) Glucose 125 H (70-99(Fasting)) mg/dl POC Glucose 141 H 131 H (70-99) mg/dl Calcium 8.6 (8.6-10.3) mg/dl Magnesium 2.0 (1.7-2.4) mg/dl Iron (35-175) mcg/dl TIBC (250-450) mcg/dl Transferrin (200-360) mg/dl Transferrin % Sat (20-50) % Ferritin (8-388) ng/ml Total Bilirubin (0.2-1.0) mg/dl AST (13-39) U/L ALT (7-52) U/L Alkaline Phosphatase (34-104) U/L Troponin I High Sens (0-20) pg/ml B-Natriuretic Peptide (0-100) pg/ml Total Protein (6.0-8.3) gm/dl Albumin (3.4-5.0) gm/dl Globulin (2.5-4.0) gm/dl Albumin/Globulin Ratio (0.9-2) Urine Color Urine Appearance (Clear) Urine pH (4.5-7.5) Ur Specific [place] (1.000-1.030) Urine Protein (Negative) Urine Glucose (UA) (Negative) Urine Ketones (Negative) Urine Blood (Negative) Urine Nitrite (Negative) Urine Bilirubin (Negative) Urine Urobilinogen (Negative) Ur Leukocyte Esterase (Negative) Urine WBC (Auto) (0-5) /hpf Urine RBC (Auto) (0-2) /hpf U Hyaline Cast (Auto) (0-2) /lpf U Epithel Cells (Auto) (0-2) /hpf Urine Bacteria (Auto) (None Seen) Urine Comment Blood Type Blood Type Recheck Antibody Screen Crossmatch 10/19/24 10/19/24 10/19/24 Range/Units 03:00 01:18 00:03 WBC (4.8-10.8) K/ul RBC (4.70-6.10) M/uL Hgb (14.0-18.0) g/dl Hct (42.0-52.0) % MCV (80.0-100.0) fL MCH (25.0-34.0) pg MCHC (32.0-36.0) g/dL RDW Std Deviation (36.4-46.3) fL RDW Coeff of Rubin (11.5-14.5) % Plt Count (130-400) K/uL MPV (9.4-12.4) fL Immature Gran % (Auto) % Neut % (Auto) % Lymph % (Auto) % [place] % (Auto) % Eos % (Auto) % Baso % (Auto) % Neut # (Auto) (1.40-6.50) K/uL Lymph # (Auto) (1.20-3.40) K/uL [place] # (Auto) (0.11-0.59) K/uL Eos # (Auto) (0.00-0.50) K/uL Baso # (Auto) (0.00-0.20) K/uL Immature Gran # (Auto) (0.01-0.20) K/uL Polychromasia Hypochromasia Anisocytosis Microcytosis Ovalocytes Acanthocytes (Spur) PT INR APTT PTT Ratio Fibrinogen 357 (184-400) mg/dl Heparin Anti-Xa, LM Wt < 0.10 (< 0.10) IU/ML Sodium (136-145) mmol/L Potassium (3.5-5.1) mmol/L Chloride (98-107) mmol/L Carbon Dioxide (21-32) mmol/L Anion Gap (3-11) BUN (6-23) mg/dl Creatinine (0.6-1.4) mg/dl Est Cr Clr Drug Dosing ml/min eGFR BUN/Creatinine Ratio (10-20) Glucose (70-99(Fasting)) mg/dl POC Glucose 151 H (70-99) mg/dl Calcium (8.6-10.3) mg/dl Magnesium (1.7-2.4) mg/dl Iron (35-175) mcg/dl TIBC (250-450) mcg/dl Transferrin (200-360) mg/dl Transferrin % Sat (20-50) % Ferritin (8-388) ng/ml Total Bilirubin (0.2-1.0) mg/dl AST (13-39) U/L ALT (7-52) U/L Alkaline Phosphatase (34-104) U/L Troponin I High Sens (0-20) pg/ml B-Natriuretic Peptide (0-100) pg/ml Total Protein (6.0-8.3) gm/dl Albumin (3.4-5.0) gm/dl Globulin (2.5-4.0) gm/dl Albumin/Globulin Ratio (0.9-2) Urine Color Yellow Urine Appearance Clear (Clear) Urine pH 5.0 (4.5-7.5) Ur Specific [place] > 1.045 H (1.000-1.030) Urine Protein Negative (Negative) Urine Glucose (UA) Negative (Negative) Urine Ketones Negative (Negative) Urine Blood 3+ H (Negative) Urine Nitrite Negative (Negative) Urine Bilirubin Negative (Negative) Urine Urobilinogen Negative (Negative) Ur Leukocyte Esterase 1+ H (Negative) Urine WBC (Auto) 11-20 H (0-5) /hpf Urine RBC (Auto) >20 H (0-2) /hpf U Hyaline Cast (Auto) 6-10 H (0-2) /lpf U Epithel Cells (Auto) 3-5 H (0-2) /hpf Urine Bacteria (Auto) None Seen (None Seen) Urine Comment Blood Type Blood Type Recheck A Positive Antibody Screen Crossmatch 10/18/24 10/18/24 Range/Units 21:03 19:08 WBC 13.02 H (4.8-10.8) K/ul RBC 3.07 L (4.70-6.10) M/uL Hgb 7.6 L (14.0-18.0) g/dl Hct 24.2 L (42.0-52.0) % MCV 78.8 L (80.0-100.0) fL MCH 24.8 L (25.0-34.0) pg MCHC 31.4 L (32.0-36.0) g/dL RDW Std Deviation 53.9 H (36.4-46.3) fL RDW Coeff of Rubin 18.8 H (11.5-14.5) % Plt Count 362 (130-400) K/uL MPV 10.7 (9.4-12.4) fL Immature Gran % (Auto) 1.2 % Neut % (Auto) 82.9 % Lymph % (Auto) 11.0 % [place] % (Auto) 4.3 % Eos % (Auto) 0.2 % Baso % (Auto) 0.4 % Neut # (Auto) 10.79 H (1.40-6.50) K/uL Lymph # (Auto) 1.43 (1.20-3.40) K/uL [place] # (Auto) 0.56 (0.11-0.59) K/uL Eos # (Auto) 0.03 (0.00-0.50) K/uL Baso # (Auto) 0.05 (0.00-0.20) K/uL Immature Gran # (Auto) 0.16 (0.01-0.20) K/uL Polychromasia Hypochromasia Present Anisocytosis Present Microcytosis Ovalocytes 1+ Acanthocytes (Spur) 1+ PT > 90.0 H Cancelled INR > 10.1 H* Cancelled APTT 104 H* Cancelled PTT Ratio 3.9 Cancelled Fibrinogen (184-400) mg/dl Heparin Anti-Xa, LM Wt (< 0.10) IU/ML Sodium 135 L (136-145) mmol/L Potassium 4.5 (3.5-5.1) mmol/L Chloride 102 (98-107) mmol/L Carbon Dioxide 23 (21-32) mmol/L Anion Gap 10 (3-11) BUN 22 (6-23) mg/dl Creatinine 1.38 (0.6-1.4) mg/dl Est Cr Clr Drug Dosing 65.9 ml/min eGFR 56.40 BUN/Creatinine Ratio 15.9 (10-20) Glucose 139 H (70-99(Fasting)) mg/dl POC Glucose (70-99) mg/dl Calcium 9.2 (8.6-10.3) mg/dl Magnesium (1.7-2.4) mg/dl Iron 29 L (35-175) mcg/dl TIBC 434 (250-450) mcg/dl Transferrin 310 (200-360) mg/dl Transferrin % Sat 7 L (20-50) % Ferritin 34.2 (8-388) ng/ml Total Bilirubin 0.7 (0.2-1.0) mg/dl AST 24 (13-39) U/L ALT 14 (7-52) U/L Alkaline Phosphatase 55 (34-104) U/L Troponin I High Sens 10.3 (0-20) pg/ml B-Natriuretic Peptide 96 (0-100) pg/ml Total Protein 6.6 (6.0-8.3) gm/dl Albumin 3.6 (3.4-5.0) gm/dl Globulin 3.0 (2.5-4.0) gm/dl Albumin/Globulin Ratio 1.2 (0.9-2) Urine Color Urine Appearance (Clear) Urine pH (4.5-7.5) Ur Specific [place] (1.000-1.030) Urine Protein (Negative) Urine Glucose (UA) (Negative) Urine Ketones (Negative) Urine Blood (Negative) Urine Nitrite (Negative) Urine Bilirubin (Negative) Urine Urobilinogen (Negative) Ur Leukocyte Esterase (Negative) Urine WBC (Auto) (0-5) /hpf Urine RBC (Auto) (0-2) /hpf U Hyaline Cast (Auto) (0-2) /lpf U Epithel Cells (Auto) (0-2) /hpf Urine Bacteria (Auto) (None Seen) Urine Comment Blood Type A Positive Blood Type Recheck Antibody Screen NEGATIVE Crossmatch See Detail Medications Administered Current Inpatient Medications Atorvastatin Calcium (Atorvastatin 40 Mg Tab) 40 mg PO DAILY DORY Stop: 11/18/24 08:59 Dextrose (Dextrose 50% 50 Ml Syringe) 25 - 50 ml IV UD PRN; Protocol PRN Reason: Hypoglycemia Protocol Stop: 11/18/24 01:01 Escitalopram Oxalate (Escitalopram Oxalate 10 Mg Tab) 10 mg PO DAILY [facility]ORY Stop: 11/18/24 08:59 Fenofibrate (Fenofibrate Nanocrystallized 145 Mg Tablet) 145 mg PO DAILY [facility] Stop: 11/18/24 08:59 Gabapentin (Gabapentin 100 Mg Cap) 100 mg PO HS [facility] Stop: 11/18/24 20:59 Glucagon (Glucagon For Inj 1 Mg Vial) 1 mg SQ UD PRN; Protocol PRN Reason: Hypoglycemia Protocol Stop: 11/18/24 01:01 Glucose (Glucose 40% Gel 15 Gm Tube) 15 - 30 gm PO UD PRN; Protocol PRN Reason: Hypoglycemia Protocol Stop: 11/18/24 01:01 Glucose (Glucose 10 Tab/Tube) 4 - 8 tab PO UD PRN; Protocol PRN Reason: Hypoglycemia Protocol Stop: 11/18/24 01:01 Hydromorphone HCl (Hydromorphone Inj 0.5 Mg/0.5 Ml Syr) 0.25 mg IV Q3H PRN PRN Reason: Mod-Sev Pain (Scale 4-10) Stop: 11/02/24 01:01 Pantoprazole Sodium 40 mg/ (Dextrose) 100 mls @ 20 mls/hr IV Q5H [facility] Stop: 11/17/24 21:29 Last Admin: 10/19/24 07:29 Dose: 8 mg/hr, 20 mls/hr Sodium Chloride (Nss) 1,000 mls @ 125 mls/hr IV .Q8H [facility] Stop: 10/22/24 01:01 Last Admin: 10/19/24 01:16 Dose: 125 mls/hr Sodium Chloride (Nss) 100 mls @ 15 mls/hr IV .Q6H40M PRN PRN Reason: For Transfusion Duration Stop: 10/19/24 15:20 Sodium Chloride (Nss) 100 mls @ 15 mls/hr IV .Q6H40M PRN PRN Reason: For Transfusion Duration Stop: 10/19/24 15:24 Insulin Aspart (Insulin Aspart Per Unit Charge) 0 units SC Q6 [facility] Stop: 11/18/24 05:59 Last Admin: 10/19/24 06:20 Dose: Not Given Meclizine HCl (Meclizine Hcl 25 Mg Tab) 25 mg PO BID PRN PRN Reason: Dizziness Stop: 11/18/24 01:01 Metoprolol Tartrate (Metoprolol Tartrate 25 Mg Tab) 25 mg PO BID [facility] Stop: 11/18/24 08:59 Miscellaneous (Carbohydrates For Hypoglycemia ) 15 - 30 gm PO UD PRN PRN Reason: Hypoglycemia Protocol Stop: 11/18/24 01:01 Multivitamins/Minerals (Cerovite Adv Formula Tab) 1 tab PO DAILY [facility] Stop: 11/18/24 08:59 Nitroglycerin (Nitroglycerin Sl 0.4 Mg/Tab Tab) 0.4 mg SL Q5M PRN PRN Reason: Chest Pain Stop: 11/18/24 01:01 Oxybutynin Chloride (Oxybutynin Chloride Xl 5 Mg Tabcr) 10 mg PO DAILY [facility] Stop: 11/18/24 08:59
[2024-10-19] MEDS: METOPROLOL TARTRATE 25 MG TAB PO SCH (08:29)
[2024-10-19] MEDS: PIPERACILLIN/TAZOBACTAM 4.5 GM/100 ML BAG IV ONE (09:22)
[2024-10-19] MEDS: CEROVITE ADV FORMULA TAB PO SCH (09:23)
[2024-10-19] MEDS: FENOFIBRATE NANOCRYSTALLIZED 145 MG TABLET PO SCH (09:23)
[2024-10-19] MEDS: ATORVASTATIN 40 MG TAB PO SCH (09:23)
[2024-10-19] MEDS: ESCITALOPRAM OXALATE 10 MG TAB PO SCH (09:23)
[2024-10-19] MEDS: OXYBUTYNIN CHLORIDE XL 5 MG TABCR PO SCH (09:23)
--- NOTE | 2024-10-19 09:46 | Cardiology Consultation ---
Date of Consultation October 19, 2024 Assessment & Plan (1) Traumatic hematoma of right upper arm: (2) Upper GI bleeding: (3) Symptomatic anemia: (4) H/O mechanical aortic valve replacement: (5) Hx of mitral valve replacement with mechanical valve: (6) Nonobstructive atherosclerosis of coronary artery: (7) Ascending aortic aneurysm: (8) HTN (hypertension): (9) Dyslipidemia, goal LDL below 70: Plan Mechanical fall on Saturday, October 12, 2024 while camping at [facility], resultant right upper extremity injury with upper extremity CTA imaging on October 18, 2024 revealing intramuscular hematoma within the right biceps muscle belly, with pre- to post-contrast enhancement suggestive of active venous bleeding and marked diffuse subcutaneous soft tissue edema of the right upper arm. No CT angiographic evidence of arterial injury, pseudoaneurysm, or active arterial contrast extravasation. Vascular and General Surgery consultations requested by Hospitalist Service. Symptomatic anemia, suspected upper GI bleeding following an approximately week long course of Advil and Aleve. Transfusion of packed red blood cells ordered, to be administered this morning. IV pantoprazole already on board. Recommend GI evaluation, EGD consideration sooner than later so that appropriate anticoagulation can be resumed noting the mechanical valves. Mechanical mitral and aortic valves, and paroxysmal atrial fibrillation/flutter. INR >10.1 on presentation, receiving Kcentra and 10 mg of IV vitamin K. INR 1.4 this morning. Coumadin on hold. Recommend initiation of IV heparin as soon as determined to be safe. Patient aware of the risks, as discusssed today. Nonobstructive coronary artery disease. Asymptomatic. Continue beta-karen and statin. Moderately enlarged aortic root and ascending aorta. Follow routinely. Hypertension. Patient is currently mildly hypotensive. Hold lisinopril. Follow. Dyslipidemia and hypertriglyceridemia. Continue atorvastatin and fenofibrate. Supervising Physician Co-Signing Physician Notes Patient seen and examined. Past medical history, surgical history, social history and family history have been reviewed. The medical record and all the above studies have been reviewed. Case DW TRESA including management. Coagulopathy GI bleed R arm traumatic hematoma Symptomatic anemia s/p fall S/P mechanical AVR S/P mechanical MVR AFib/flutter Hypertension Hyperlipidemia f/u H/H GI and surgery evaluation as soon as ok with GI and surgery start anticoagulation with IV heparin + Coumadin for therapeutic INR of 2.5 to 3.5; DC IV Heparin when INR reaches 2.5 f/u H/H, PT/INR daily PRBC as indicated correct and f/u electrolytes f/u renal function cont bblkr cont statin History of Present Illness Reason for Consultation: "Dizzy, anemia. mechanical aortic and mitral valve." Requesting Physician: [facility] Hospitalist Service, Dr. Beck Turner Attending Physician: [facility] Hospitalist Service, Dr. Jose Glass MD History of Present Illness Kofi Gallagher is a very pleasant 64-year-old male with past medical history notable for remote endocarditis status post MECHANICAL mitral and aortic valve replacements ([place], [place], August 2002) and paroxysmal atrial fibrillation/flutter. Last week patient was camping at [facility], suffering a mechanical fall onto the right arm while taking down a tarp. Over the past week patient has had considerable right upper extremity discomfort for which he has been alternating Advil and Aleve approximately every 3-4 hours. Prior to arrival, on Sunday, October 18, 2024 patient felt sick to his stomach, experiencing black tarry stools followed by dizziness, inability to get off the toilet. Patient describes crawling on the floor, without loss of conscio usness/syncope, ongoing dizziness and shortness of breath, ultimately presenting to the [facility] ER. Hemoglobin on presentation was 7.6 g/dL, dropping to 6.2 g/dL. Stool was He moccult positive in the ER. INR was supratherapeutic at greater than 10.1, receiving Kcentra and 10 mg of IV vitamin K. INR this is 1.4. Transfusion of packed red blood cells has been ordered. IV Protonix bolus and drip previously initiated. Patient notes improving right upper extremity pain, swelling, prickly feeling, improving musculoskeletal right-sided chest wall pain. No overt angina. No palpitations. Stable shortness of breath. No cough, chest congestion, orthopnea, PND, or increased peripheral edema. Notes recent diagnosis of neuropathy for which she was prescribed gabapentin 2 weeks ago. No true syncope. No fevers or chills. No recent hematuria, previously occurring in association with kidney stones. Past Medical and Surgical History: Status post aortic valve and mitral valve replacement August 2002 secondary valvular insufficiency from bacterial endocarditis receiving 23 mm [place] MECHANICAL prosthesis in the aortic valve position and 29 mm [place] MECHANICAL prosthesis in the mitral valve position Mild nonobstructive coronary atherosclerosis via coronary angiography last in 2016 Moderately enlarged aortic root and ascending aorta Paroxysmal atrial fibrillation/flutter Hypertension Hyperlipidemia Type 2 diabetes mellitus GERD Overactive bladder status post lithotripsy Colonic polyps Kidney stones Generalized anxiety disorder Gallstones, status postcholecystectomy Status post cataract extraction Family History: Positive for coronary artery disease in both parents, mother undergoing CABG in her 60s, father in his 80s. Father with prostate cancer. Mother with diabetes. Social History: Reformed smoker having quit approximately 10 years ago after smoking up to 1 ppd x 30 years. No smokeless tobacco. No alcohol. Retired 3 years ago, previously working for [email or web address] Allergies Allergy/AdvReac Type Severity Reaction Status Date / Time No Known Allergies Allergy Verified 10/18/24 19:28 Home Medications Medication Instructions Recorded Confirmed Type atorvastatin 40 mg tablet 40 mg PO DAILY 10/18/24 10/18/24 History escitalopram oxalate 10 mg tablet 10 mg PO DAILY 10/18/24 10/18/24 History fenofibrate micronized 134 mg 134 mg PO DAILY 10/18/24 10/18/24 History capsule gabapentin 100 mg capsule 100 mg PO HS 10/18/24 10/18/24 History lisinopril 20 mg tablet 20 mg PO DAILY 10/18/24 10/18/24 History meclizine 25 mg tablet 25 mg PO BID PRN Dizziness 10/18/24 10/18/24 History metformin 500 mg tablet 500 mg PO DAILY 10/18/24 10/18/24 History metoprolol tartrate 50 mg tablet 25 mg PO BID 10/18/24 10/18/24 History gvdrkhdlcjmf-imy-jdena acid-vit 1 tab PO DAILY 10/18/24 10/18/24 History K-lycop 400 mcg-20 mcg-370 mcg tablet (Men's 50 Plus Multivitamin) omeprazole 20 mg capsule,delayed 20 mg PO DAILYBB 10/18/24 10/18/24 History release oxybutynin chloride 10 mg 10 mg PO DAILY 10/18/24 10/18/24 History tablet,extended release 24 hr triamcinolone acetonide 0.1 % 1 applic topical BID PRN SKIN 10/18/24 10/18/24 History topical cream IRRITATIONS warfarin 5 mg tablet 5 mg PO DAILY 10/18/24 10/18/24 History Patient History Medical History GERD (gastroesophageal reflux disease) H/O: HTN (hypertension) Cardiac valvulopathy Surgical History Heart valve replaced Social History Smoking Status: Former smoker Do You Dip or Chew Tobacco: No; Hx Alcohol Use: No Hx Substance Use: Yes Preferred Language: Hebrew Communication Ability: Effective Spiritual Advisor Required: No Beliefs That Will Affect Care: None Current Living Situation: Spouse Other Information That Helps Us Care for You: No Feels Safe at Home: Yes Safety Concerns: Feels Safe At This Time Assistive Devices: None Review of Systems Review of Systems: Complete Review of Systems is as stated above, negative, or noncontributory. Physical Exam Physical Exam: General: A&Ox3. NAD. Skin: Considerable right upper extremity swelling and ecchymosis, right chest ecchymosis. HENT: Normocephalic. Atraumatic. Eyes: PER. Conjunctiva pink, sclera clear. Neck: No carotid bruits. No JVD. No HJR. Heart: Distant. Regular at 80 bpm. Grade II/ systolic murmur. No diastolic murmur. Lungs: Clear to auscultation. Abdomen: +BS. Soft. Nontender. No masses or organomegaly. Extremities: Mild edema bilateral lower extremities. Limited neurological examination is without focal deficits. Pulses: Posterior tibial=2/4. Results & Data Vital Signs (Past 12 Hours) Vital Signs Temp Pulse Pulse Resp BP BP Pulse Ox 10/19/24 09:39 36.5 C 75 14 106/70 97 10/19/24 09:09 36.6 C 73 20 91/52 L 94 10/19/24 08:54 36.5 C 72 14 89/54 L 96 10/19/24 08:36 36.6 C 81 16 92/57 L 97 10/19/24 07:25 36.9 C 81 20 101/65 91 10/19/24 01:07 36.5 C 75 16 142/80 H 98 10/19/24 00:45 36.5 C 75 16 142/80 H 98 10/18/24 23:41 74 20 140/80 95 10/18/24 22:44 73 10/18/24 22:00 84 20 148/76 H 95 O2 Del Method 10/19/24 09:39 10/19/24 09:09 10/19/24 08:54 10/19/24 08:36 10/19/24 07:25 Room Air 10/19/24 01:07 Room Air 10/19/24 00:45 Room Air 10/18/24 23:41 Room Air 10/18/24 22:44 10/18/24 22:00 Room Air Laboratory Results Cardiac Enzymes 10/18/24 Range/Units 19:08 AST 24 (13-39) U/L Troponin I High Sens 10.3 (0-20) pg/ml B-Natriuretic Peptide 96 (0-100) pg/ml Coagulation 10/18/24 10/18/24 10/19/24 Range/Units 19:08 21:03 06:41 PT Cancelled > 90.0 H 14.6 H APTT Cancelled 104 H* B-Natriuretic Peptide 96 (0-100) pg/ml CBC 10/18/24 10/19/24 Range/Units 19:08 06:41 WBC 13.02 H 9.02 (4.8-10.8) K/ul RBC 3.07 L 2.48 L (4.70-6.10) M/uL Hgb 7.6 L 6.2 L* (14.0-18.0) g/dl Hct 24.2 L 19.0 L* (42.0-52.0) % Plt Count 362 316 (130-400) K/uL Neut # (Auto) 10.79 H 5.82 (1.40-6.50) K/uL Lymph # (Auto) 1.43 2.42 (1.20-3.40) K/uL [place] # (Auto) 0.56 0.57 (0.11-0.59) K/uL Eos # (Auto) 0.03 0.12 (0.00-0.50) K/uL Baso # (Auto) 0.05 0.04 (0.00-0.20) K/uL Comprehensive Metabolic Panel 08/30/25 08/31/25 Range/Units 19:08 06:41 Sodium 135 L 134 L (136-145) mmol/L Potassium 4.5 4.9 (3.5-5.1) mmol/L Chloride 102 104 (98-107) mmol/L Carbon Dioxide 23 26 (21-32) mmol/L BUN 22 25 H (6-23) mg/dl Creatinine 1.38 1.43 H (0.6-1.4) mg/dl Glucose 139 H 125 H (70-99(Fasting)) mg/dl Calcium 9.2 8.6 (8.6-10.3) mg/dl AST 24 (13-39) U/L ALT 14 (7-52) U/L Alkaline Phosphatase 55 (34-104) U/L Total Protein 6.6 (6.0-8.3) gm/dl Albumin 3.6 (3.4-5.0) gm/dl Intake and Output 10/18/24 10/19/24 10/19/24 22:59 06:59 14:59 Intake Total 120 / 269.667 149.667 / 685.717 7074.916 / 1110.916 Output Total 400 / 400 Balance 120 / -130.333 -250.333 / -825.956 3531.916 / 1110.916 Intake: IV 120 / 269.667 149.667 / 957.994 4310.916 / 1110.916 PANTOprazole 40 mg In Dextrose 98.667 / 98.667 88 / 88 5% Mini-B 100 ml @ 8 MG/HR 20 mls/hr IV Q5H [facility] Rx#:[id number] PANTOprazole 80 mg In Dextrose 120 / 120 5% 100 ml @ 480 mls/hr IV NOW ONE Rx#:[id number] Phytonadione 10 mg In Dextrose 51 / 51 5% 50 ml @ 102 mls/hr IV ONE ONE Rx#:[id number] Piperacillin/Tazobactam 4.5 gm 100 / 100 In 100 ml @ 200 mls/hr IV ONE ONE Rx#:[id number] Sodium Chloride 0.9% 1,000 ml @ 922.916 / 922.916 125 mls/hr IV .Q8H [facility] Rx#: [id number] Intake (Blood Product) Amt 0 / 0 Packed Cells, Leukoreduced 0 / 0 Unit [id number] Output: Urine 400 / 400 Other: Other Intake Source npo Weight 115.1 kg 111.4 kg Weight Measurement Method Built in [employer] Built in [facility] Diagnostic Findings Admission chest x-ray without acute findings. CT scan of the head without acute abnormality. Lower extremity venous duplex negative for DVT. EKG on presentation revealed sinus rhythm at 66 bpm with a first-degree AV block, LVH. Cannot rule out an old septal infarct. QTc 463 ms Telemetry: Sinus, currently around 80 bpm. Occasional ectopy. PG Care Time/CCT Total # of Minutes Spent Total Time Spent with Patient: Total time spent is greater than 50% in coordination of care (as documented) at patient's floor/unit and/or counseling patient. I spent a total of 85 minutes on the date of service in preparation, delivery, and documentation of the care provided to this patient excluding any time spent in the performance of separately billed services. This visit was a split-shared visit with the substantive portion of the medical decision making performed by the supervising returned goods sorter/billing provider, Dr. Estrella. Coding Level of Care Code 83253 IN/OBS CONSULT LVL 5,80M Diagnoses Traumatic hematoma of right upper arm S40.021A Upper GI bleeding K92.2 Symptomatic anemia D64.9 H/O mechanical aortic valve replacement Z95.2 Hx of mitral valve replacement with mechanical valve Z95.2 Nonobstructive atherosclerosis of coronary artery I25.10 Ascending aortic aneurysm I71.21 HTN (hypertension) I10 Dyslipidemia, goal LDL below 70 E78.5
--- NOTE | 2024-10-19 10:24 | Consultation ---
Date of Consultation October 19, 2024 Assessment & Plan (1) Traumatic hematoma of right upper arm: This patient has a traumatic hematoma of the right upper arm due to an markedly elevated INR associated with his falls. On exam he has no evidence of compartment syndrome in the right upper arm. No arterial injury was seen on CT angiogram. I will treat this with elevation and and correction of his hemoglobin and clotting factors. Thank you very much for letting us participate in the care of this patient. History of Present Illness Reason for Consultation: Right arm hematoma Attending Physician: Jose Glass MD History of Present Illness This is a 64-year-old gentleman who has a history of type 2 diabetes, dyslipidemia, hypertriglyceridemia, paroxysmal atrial fibrillation, ascending aortic enlargement, hypertension, obesity, GERD, colon polyps, overactive bladder, status post aortic valve replacement, status post mitral valve replacement, general anxiety disorder. He presented to emergency room due to lightheadedness and dizziness and multiple falls over the last few days. He is on Coumadin and had an INR of greater than 10. He denies hitting his head on any of his falls. CT angiogram done in the ED showed no arterial injuries. Hematoma in the upper arm was consistent with venous bleeding. Today he denies any numbness in the hand and forearm. Denies any pain in his hand and claims that the arm is feeling better. Allergies Allergy/AdvReac Type Severity Reaction Status Date / Time No Known Allergies Allergy Verified 10/18/24 19:28 Home Medications Medication Instructions Recorded Confirmed Type atorvastatin 40 mg tablet 40 mg PO DAILY 10/18/24 10/18/24 History escitalopram oxalate 10 mg tablet 10 mg PO DAILY 10/18/24 10/18/24 History fenofibrate micronized 134 mg 134 mg PO DAILY 10/18/24 10/18/24 History capsule gabapentin 100 mg capsule 100 mg PO HS 10/18/24 10/18/24 History lisinopril 20 mg tablet 20 mg PO DAILY 10/18/24 10/18/24 History meclizine 25 mg tablet 25 mg PO BID PRN Dizziness 10/18/24 10/18/24 History metformin 500 mg tablet 500 mg PO DAILY 10/18/24 10/18/24 History metoprolol tartrate 50 mg tablet 25 mg PO BID 10/18/24 10/18/24 History wjnppsnfabvg-bqx-qudty acid-vit 1 tab PO DAILY 10/18/24 10/18/24 History K-lycop 400 mcg-20 mcg-370 mcg tablet (Men's 50 Plus Multivitamin) omeprazole 20 mg capsule,delayed 20 mg PO DAILYBB 10/18/24 10/18/24 History release oxybutynin chloride 10 mg 10 mg PO DAILY 10/18/24 10/18/24 History tablet,extended release 24 hr triamcinolone acetonide 0.1 % 1 applic topical BID PRN SKIN 10/18/24 10/18/24 History topical cream IRRITATIONS warfarin 5 mg tablet 5 mg PO DAILY 10/18/24 10/18/24 History Patient History Medical History GERD (gastroesophageal reflux disease) H/O: HTN (hypertension) Cardiac valvulopathy Surgical History Heart valve replaced Social History Smoking Status: Former smoker Do You Dip or Chew Tobacco: No; Hx Alcohol Use: No Hx Substance Use: Yes Preferred Language: Serbian Communication Ability: Effective Splicing Machine Operator Required: No Beliefs That Will Affect Care: None Current Living Situation: Spouse Other Information That Helps Us Care for You: No Feels Safe at Home: Yes Safety Concerns: Feels Safe At This Time Assistive Devices: None Review of Systems Review of Systems: All systems reviewed & are unremarkable except as noted in HPI & below Physical Exam Constitutional: WD/WN, vitals as above Respiratory: normal respiratory effort; no respiratory distress Cardiovascular: Rate/Rhythm: regular rate and regular rhythm Vessels: radial pulses present Extremities: normal capillary refill Gastrointestinal (Abdomen): Inspection/Auscultation: abdomen normal to inspection; abdomen not distended Percussion/Palpation: abdomen soft Musculoskeletal: There is a large hematoma present in the right upper arm with ecchymosis extending down into his lateral chest wall of the right side. He has good grasp of his hand. Neurologic: CN's II-XI intact bilaterally and moves all extremities Psychiatric: A+Ox3, euthymic affect Results & Data Vital Signs (Past 12 Hours) Vital Signs Temp Pulse Pulse Resp BP BP Pulse Ox 10/19/24 09:39 36.5 C 75 14 106/70 97 10/19/24 09:09 36.6 C 73 20 91/52 L 94 10/19/24 08:54 36.5 C 72 14 89/54 L 96 10/19/24 08:36 36.6 C 81 16 92/57 L 97 10/19/24 07:25 36.9 C 81 20 101/65 91 10/19/24 01:07 36.5 C 75 16 142/80 H 98 10/19/24 00:45 36.5 C 75 16 142/80 H 98 10/18/24 23:41 74 20 140/80 95 10/18/24 22:44 73 O2 Del Method 10/19/24 09:39 10/19/24 09:09 10/19/24 08:54 10/19/24 08:36 10/19/24 07:25 Room Air 10/19/24 01:07 Room Air 10/19/24 00:45 Room Air 10/18/24 23:41 Room Air 10/18/24 22:44
--- NOTE | 2024-10-19 10:42 | Communication Note ---
Date of Service: October 19, 2024 received consult for patient due to arm swelliing and possible continuing hemorrhage in biceps. reviewed chart, question of some numbness in fingers. re ached out to primary team via tigertext - informed Dr. Glass that if significant concern for compartment syndrome due to hematoma and edema, will need urgent consultation from orthopedic surgery for possible fasciotomy. Will see patient in consultation, but for question of compartment syndrome, needs to be seen by ORTHOPEDICS, which is the appropriate specialty for fasciotomies. awaiting response from primary team.
--- NOTE | 2024-10-19 11:25 | Gastrointestinal Consultation ---
Date of Consultation October 19, 2024 Assessment & Plan (1) Melena: (2) Hematochezia: (3) Constipation: (4) Elevated INR: (5) Symptomatic anemia: 64-year-old with numerous comorbidities including valvular heart disease status post replacement on chronic anticoagulation presenting with GI bleeding in the setting of supratherapeutic INR. 1. GI bleed-the patient presents with symptoms of hematochezia and melena in the setting of supratherapeutic INR. He has been taking significant NSAID therapy which raises increase suspicion for peptic ulcer disease, upper GI bleeding. Certainly in the setting of constipation some of the hematochezia could be a component of hematochezia particular given INR greater than 10 -- In light of necessity to maintain patient on anticoagulation we will perform EGD today to help provide any necessary therapy and help guide reinstitution of anticoagulation -- Continue pantoprazole 40 mg twice daily -- Further recommendations to follow pending upper endoscopy including guidance on resuming anticoagulation 2. Constipation -- MiraLAX titrated to benefit Thank you for the courtesy of this consultation. History of Present Illness Reason for Consultation: GI bleed, anemia Attending Physician: Jose Glass MD History of Present Illness The patient is a 64-year-old gentleman with numerous comorbidities including paroxysmal atrial fibrillation, AVR/MVR on chronic anticoagulation with Coumadin, type 2 diabetes, hyperlipidemia presenting to [facility] with dizziness. Prior to that he had a fall while camping resulting in significant trauma to his right side including his right shoulder and right knee resulting in extensive hematoma. The patient was reported to have rectal bleeding but also has had several episodes of black stool which followed taking ibuprofen. He reports history of colonoscopy performed approximately 2 years ago where a small polyp was removed. The patient was seen in the hospital 06/2024 with nephrolithiasis. During that hospitalization he developed significant constipation with some rectal bleeding believed to be from hemorrhoids. He has had some constipation since that time partially improved with fiber therapy. He otherwise is free of gastrointestinal symptoms such as nausea, vomiting, odynophagia, dysphagia, early satiety, unexplained weight loss, abdominal pain. Lab work notable for hemoglobin of 6.2 down from 12.8 in April for which the patient has been transfused 1 unit. INR on initial presentation was 10.1, now down to 1.4. CT of the abdomen pelvis shows no acute findings. Allergies Allergy/AdvReac Type Severity Reaction Status Date / Time No Known Allergies Allergy Verified 10/18/24 19:28 Home Medications Medication Instructions Recorded Confirmed Type atorvastatin 40 mg tablet 40 mg PO DAILY 10/18/24 10/18/24 History escitalopram oxalate 10 mg tablet 10 mg PO DAILY 10/18/24 10/18/24 History fenofibrate micronized 134 mg 134 mg PO DAILY 10/18/24 10/18/24 History capsule gabapentin 100 mg capsule 100 mg PO HS 10/18/24 10/18/24 History lisinopril 20 mg tablet 20 mg PO DAILY 10/18/24 10/18/24 History meclizine 25 mg tablet 25 mg PO BID PRN Dizziness 10/18/24 10/18/24 History metformin 500 mg tablet 500 mg PO DAILY 10/18/24 10/18/24 History metoprolol tartrate 50 mg tablet 25 mg PO BID 10/18/24 10/18/24 History mkdprxhjbmjn-usw-icyiz acid-vit 1 tab PO DAILY 10/18/24 10/18/24 History K-lycop 400 mcg-20 mcg-370 mcg tablet (Men's 50 Plus Multivitamin) omeprazole 20 mg capsule,delayed 20 mg PO DAILYBB 10/18/24 10/18/24 History release oxybutynin chloride 10 mg 10 mg PO DAILY 10/18/24 10/18/24 History tablet,extended release 24 hr triamcinolone acetonide 0.1 % 1 applic topical BID PRN SKIN 10/18/24 10/18/24 History topical cream IRRITATIONS warfarin 5 mg tablet 5 mg PO DAILY 10/18/24 10/18/24 History Patient History Medical History GERD (gastroesophageal reflux disease) H/O: HTN (hypertension) Cardiac valvulopathy Surgical History Heart valve replaced Social History Smoking Status: Former smoker Do You Dip or Chew Tobacco: No; Hx Alcohol Use: No Hx Substance Use: Yes Preferred Language: Malay Communication Ability: Effective 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 Beliefs That Will Affect Care: None Current Living Situation: Spouse Other Information That Helps Us Care for You: No Feels Safe at Home: Yes Safety Concerns: Feels Safe At This Time Assistive Devices: None Review of Systems Review of Systems: All systems reviewed & are unremarkable except as noted in HPI & below Physical Exam Constitutional: WD/WN, vitals as above Respiratory: normal respiratory effort, lungs clear to auscultation Cardiovascular: RRR, no murmur, no edema Gastrointestinal (Abdomen): normal bowel sounds, soft, nontender, no hepatosplenomegaly Musculoskeletal: There is substantial edema and ecchymosis of the right upper extremity as well as right knee with tenderness on palpation Skin: + induration and + ecchymosis Neurologic: PERRL, EOMI, accommodation nl, no face palsy, no dysarthria Psychiatric: A+Ox3, euthymic affect Genitourinary: Not performed Results & Data Vital Signs (Past 12 Hours) Vital Signs Temp Pulse Pulse Resp BP BP Pulse Ox 10/19/24 11:02 36.6 C 76 101/63 94 10/19/24 10:36 36.5 C 76 15 101/63 97 10/19/24 09:39 36.5 C 75 14 106/70 97 10/19/24 09:09 36.6 C 73 20 91/52 L 94 10/19/24 08:54 36.5 C 72 14 89/54 L 96 10/19/24 08:36 36.6 C 81 16 92/57 L 97 10/19/24 07:25 36.9 C 81 20 101/65 91 10/19/24 01:07 36.5 C 75 16 142/80 H 98 10/19/24 00:45 36.5 C 75 16 142/80 H 98 10/18/24 23:41 74 20 140/80 95 O2 Del Method 10/19/24 11:02 Room Air 10/19/24 10:36 10/19/24 09:39 10/19/24 09:09 10/19/24 08:54 10/19/24 08:36 10/19/24 07:25 Room Air 10/19/24 01:07 Room Air 10/19/24 00:45 Room Air 10/18/24 23:41 Room Air PG Care Time/CCT Total # of Minutes Spent Total Time Spent with Patient: Total time spent is greater than 50% in coordination of care (as documented) at patient's floor/unit and/or counseling patient: [place] [address] INT INP/OBS CARE MIN Patient Type New History Detailed Exam Detailed Medical Decision Making Moderate Complexity Diagnoses Melena K92.1 Hematochezia K92.1 Constipation, unspecified constipation type K59.00 Constipation type: unspecified constipation type Elevated INR R79.1 Symptomatic anemia D64.9 (3) Constipation Constipation type: unspecified constipation type Qualified Code(s): K59.00 - Constipation, unspecified
[2024-10-19] MEDS ORDERED: ONDANSETRON INJ 2 MG/ML 2 ML VIAL IV PRN (11:50)
[2024-10-19] MEDS ORDERED: ATROPINE SULFATE 0.1 MG/ML 10ML SYR IV PRN (11:50)
--- NOTE | 2024-10-19 11:50 | Anesthesiology Consultation ---
Date of Service October 19, 2024 Assessment & Plan Chart Review Chart Review: Acceptable Risk for Surgery and Patient NOT seen in Pre Admission Testing Consults Requested none History Surgery Operation Date: 10/19/24 12:15 Proposed Procedures p Esophagogastroduodenoscopy - Joesph Gordon MD Height/Weight Height: 6 ft 1 in Weight: 111.4 kg Allergies Allergy/AdvReac Type Severity Reaction Status Date / Time No Known Allergies Allergy Verified 10/18/24 19:28 Medications Home Medications Medication Instructions Recorded Confirmed Last Taken atorvastatin 40 mg tablet 40 mg PO DAILY 10/18/24 10/18/24 10/18/24 escitalopram oxalate 10 mg tablet 10 mg PO DAILY 10/18/24 10/18/24 10/18/24 fenofibrate micronized 134 mg 134 mg PO DAILY 10/18/24 10/18/24 10/18/24 capsule gabapentin 100 mg capsule 100 mg PO HS 10/18/24 10/18/24 10/17/24 lisinopril 20 mg tablet 20 mg PO DAILY 10/18/24 10/18/24 10/18/24 meclizine 25 mg tablet 25 mg PO BID PRN Dizziness 10/18/24 10/18/24 Unknown metformin 500 mg tablet 500 mg PO DAILY 10/18/24 10/18/24 10/18/24 metoprolol tartrate 50 mg tablet 25 mg PO BID 10/18/24 10/18/24 10/18/24 08:00 [id number]-dcb-bnlgg acid-vit 1 tab PO DAILY 10/18/24 10/18/24 10/18/24 K-lycop 400 mcg-20 mcg-370 mcg tablet (Men's 50 Plus Multivitamin) omeprazole 20 mg capsule,delayed 20 mg PO DAILYBB 10/18/24 10/18/24 10/18/24 release oxybutynin chloride 10 mg 10 mg PO DAILY 10/18/24 10/18/24 10/18/24 tablet,extended release 24 hr triamcinolone acetonide 0.1 % 1 applic topical BID PRN SKIN 10/18/24 10/18/24 Unknown topical cream IRRITATIONS warfarin 5 mg tablet 5 mg PO DAILY 10/18/24 10/18/24 10/18/24 Active Medications Generic Name Dose Route Start Last Admin Trade Name Freq PRN Reason Stop Dose Admin Atorvastatin Calcium 40 mg 10/19/24 09:00 10/19/24 09:23 Atorvastatin 40 Mg Tab PO 11/18/24 08:59 40 mg DAILY DORY Administration Escitalopram Oxalate 10 mg 10/19/24 09:00 10/19/24 09:23 Escitalopram Oxalate 10 Mg Tab PO 11/18/24 08:59 10 mg DAILY DORY Administration Fenofibrate 145 mg 10/19/24 09:00 10/19/24 09:23 Fenofibrate Nanocrystallized 145 Mg Tablet PO 11/18/24 08:59 145 mg DAILY DORY Administration Pantoprazole Sodium 40 mg/ 100 mls @ 20 mls/hr 10/18/24 21:30 10/19/24 07:29 Dextrose IV 11/17/24 21:29 8 mg/hr Q5H DORY 20 mls/hr Administration 8 MG/HR Sodium Chloride 1,000 mls @ 125 mls/hr 10/19/24 01:02 10/19/24 09:54 Nss IV 10/22/24 01:01 125 mls/hr .Q8H DORY Administration Insulin Aspart 0 units 10/19/24 06:00 10/19/24 06:20 Insulin Aspart Per Unit Charge SC 11/18/24 05:59 Not Given Q6 DORY Multivitamins/Minerals 1 tab 10/19/24 09:00 10/19/24 09:23 Cerovite Adv Formula Tab PO 11/18/24 08:59 1 tab DAILY DORY Administration Oxybutynin Chloride 10 mg 10/19/24 09:00 10/19/24 09:23 Oxybutynin Chloride Xl 5 Mg Tabcr PO 11/18/24 08:59 10 mg DAILY DROY Administration Past Medical History Medical History GERD (gastroesophageal reflux disease) H/O: HTN (hypertension) Cardiac valvulopathy Past Surgical History Surgical History Heart valve replaced Social History Smoking Status: Former smoker Do You Dip or Chew Tobacco: No Hx Alcohol Use: No Hx Substance Use: Yes substance use type: marijuana Physical Exam Vital Signs Last Vital Signs Temp 36.6 C 10/19/24 11:02 Pulse 76 10/19/24 11:02 Resp 15 10/19/24 10:36 BP 101/63 10/19/24 11:02 Pulse Ox 94 10/19/24 11:02 O2 Del Method Room Air 10/19/24 11:02 Testing Laboratory Results 10/19/24 06:41 10/19/24 06:41 PT 14.6 Seconds (9.0-12.0) H 10/19/24 06:41 INR 1.4 (0.9-1.1) H 10/19/24 06:41 APTT 104 Seconds (21-31) H* 10/18/24 21:03 Urine Color Yellow 10/19/24 03:00 Urine Appearance Clear (Clear) 10/19/24 03:00 Urine pH 5.0 (4.5-7.5) 10/19/24 03:00 Ur Specific [place] > 1.045 (1.000-1.030) H 10/19/24 03:00 Urine Protein Negative (Negative) 10/19/24 03:00 Urine Glucose (UA) Negative (Negative) 10/19/24 03:00 Urine Ketones Negative (Negative) 10/19/24 03:00 Urine Nitrite Negative (Negative) 10/19/24 03:00 Ur Leukocyte Esterase 1+ (Negative) H 10/19/24 03:00 Urine WBC (Auto) 11-20 /hpf (0-5) H 10/19/24 03:00 Urine RBC (Auto) >20 /hpf (0-2) H 10/19/24 03:00 U Hyaline Cast (Auto) 6-10 /lpf (0-2) H 10/19/24 03:00 U Epithel Cells (Auto) 3-5 /hpf (0-2) H 10/19/24 03:00 Urine Bacteria (Auto) None Seen (None Seen) 10/19/24 03:00 Blood Type A Positive 10/18/24 21:03 Antibody Screen NEGATIVE 10/18/24 21:03 10/19/24 10/19/24 10/19/24 07:19 06:19 01:18 POC Glucose 141 H 131 H 151 H
[2024-10-19] MEDS ORDERED: PROPOFOL IV EMULSION 10 MG/ML 20 ML VIAL IV ONE (11:59)
[2024-10-19] MEDS ORDERED: KETAMINE HCL 10MG/ML SYR ONE (11:59)
[2024-10-19] MEDS ORDERED: LIDOCAINE 2% 2 ML VIAL/AMP(20MG/ML) INFIL ONE (11:59)
--- NOTE | 2024-10-19 11:59 | Electrocardiogram Report ---
Test Reason : Blood Pressure : */* mmHG Vent. Rate : 66 BPM Atrial Rate : 66 BPM P-R Int : 214 ms QRS Dur : 94 ms QT Int : 442 ms P-R-T Axes : 69 -15 107 degrees QTcB Int : 463 ms Sinus rhythm with 1st degree A-V block Left ventricular hypertrophy with repolarization abnormality Abnormal ECG No previous ECGs available Confirmed by Hunter Johnson ([id number]) on 10/19/2024 11:58:44 AM Referred By: REFERRED SELF Confirmed By: Hunter Johnson
--- NOTE | 2024-10-19 12:40 | GI REPORT ---
[facility] Patient: GAYLA MELVIN : 1960 Sex at : Male Age: 64 Years Procedure: Upper GI endoscopy Date: 10/19/2024 Attending Physician: Joesph Gordon MD Referring MD: Referred Self Indications: - Melena - Suspected upper gastrointestinal bleeding - Anemia Medications: - See the Anesthesia note for documentation of the administered medications Complications: - No immediate complications. Estimated Blood Loss: - Estimated blood loss was minimal. Procedure: - Prior to the procedure, a History and Physical was performed, and patient medications and allergies were reviewed. The patient's tolerance of previous anesthesia was also reviewed. The risks and benefits of the procedure and the sedation options and risks were discussed with the patient. All questions were answered, and informed consent was obtained. Prior Anticoagulants: The patient has taken Coumadin (warfarin), last dose was 1 day prior to procedure. ASA Grade Assessment: IV - A patient with severe systemic disease that is a constant threat to life. After reviewing the risks and benefits, the patient was deemed in satisfactory condition to undergo the procedure. - Coagulopathy reversed prior to procedure. (INR 1.4) - The egd scope was introduced through the mouth and advanced to the third part of the duodenum. - The upper GI endoscopy was accomplished without difficulty. - The patient tolerated the procedure well. Findings: - The examined duodenum was normal. - Localized moderate inflammation characterized by erythema was found in the gastric antrum. Biopsies were taken with a cold forceps for Helicobacter pylori testing. - Patchy mildly erythematous mucosa without bleeding was found in the gastric body. This was biopsied with a cold forceps for Helicobacter pylori testing. - The Z-line was regular and was found 45 cm from the incisors. Impression: - Normal examined duodenum. - Gastritis, characterized by erythema. Biopsied. - Erythematous mucosa in the gastric body. Biopsied. - Z-line regular, 45 cm from the incisors. Recommendation: - Await pathology results. - Continue PPI - Avoid NSAIDS - From a GI perspective, OK to resume Coumadin to target INR. - Resume regular diet. Procedure Code(s): - 66397, Esophagogastroduodenoscopy, flexible, transoral; with biopsy, single or multiple Diagnosis Code(s): - K92.1, Melena (includes Hematochezia) - D64.9, Anemia, unspecified - K29.70, Gastritis, unspecified, without bleeding - K31.89, Other diseases of stomach and duodenum CPT(R) - 2023 copyright [employer]. All Rights Reserved. The CPT codes, CCI edits and ICD codes generated are intended as suggestions and were generated based on input data. These codes are preliminary and upon operations lead review may be revised to meet current compliance and payer requirements. The provider is responsible for the final determination of appropriate codes, and modifiers. Joesph Gordon MD This document has been electronically signed. Note Initiated:10/19/2024 Note Completed:10/19/2024 12:38 PM \\[email or web address]\[email or web address]\Results\[email or web address]\[id number]
--- NOTE | 2024-10-19 13:45 | Surgery Consultation ---
Date of Consultation October 19, 2024 Assessment & Plan (1) Traumatic hematoma of right upper arm: six 4-year-old gentleman with prior history of mechanical aortic valve on anticoagulation presents after a fall 1 week ago. He has a large hematoma on his right arm with evidence of venous bleeding on CT scan. He has no neuropathy, but does have what appears to be increased numbness in his 3rd through 5th digit on the right side since the fall. He has decreased kitchenwhere maker strength on the right over the left. There is concern for a possible compartment syndrome. He will need to be evaluated by orthopedics, I believe a vascular surgery consult is already in process. Compartment syndrome of the upper extremity is not a general surgical condition. Once again, will need orthopedic consultation for consideration of possible fasciotomy if this is in fact a compartment syndrome. Please call with questions or concerns. History of Present Illness Reason for Consultation: Right arm hematoma Requesting Physician: Jose Glass MD Attending Physician: Jose Glass MD History of Present Illness sick 58-year-old gentleman with multiple medical problems including 2 mechanical valves on anticoagulation who fell last week. He developed edema and ecchymosis of his right extremity. He states that since the time of the fall, he has noted some increase of his neuropathy in his right arm and fingers. Specifically his 3rd, 4th and 5th finger on the right side are more numb. Of n ote, he does have known neuropathy. He denies significant pain on his right arm or hands. He denies other complaints. Allergies Allergy/AdvReac Type Severity Reaction Status Date / Time No Known Allergies Allergy Verified 10/18/24 19:28 Home Medications Medication Instructions Recorded Confirmed Type atorvastatin 40 mg tablet 40 mg PO DAILY 10/18/24 10/18/24 History escitalopram oxalate 10 mg tablet 10 mg PO DAILY 10/18/24 10/18/24 History fenofibrate micronized 134 mg 134 mg PO DAILY 10/18/24 10/18/24 History capsule gabapentin 100 mg capsule 100 mg PO HS 10/18/24 10/18/24 History lisinopril 20 mg tablet 20 mg PO DAILY 10/18/24 10/18/24 History meclizine 25 mg tablet 25 mg PO BID PRN Dizziness 10/18/24 10/18/24 History metformin 500 mg tablet 500 mg PO DAILY 10/18/24 10/18/24 History metoprolol tartrate 50 mg tablet 25 mg PO BID 10/18/24 10/18/24 History [id number] acid-vit 1 tab PO DAILY 10/18/24 10/18/24 History K-lycop 400 mcg-20 mcg-370 mcg tablet (Men's 50 Plus Multivitamin) omeprazole 20 mg capsule,delayed 20 mg PO DAILYBB 10/18/24 10/18/24 History release oxybutynin chloride 10 mg 10 mg PO DAILY 10/18/24 10/18/24 History tablet,extended release 24 hr triamcinolone acetonide 0.1 % 1 applic topical BID PRN SKIN 10/18/24 10/18/24 History topical cream IRRITATIONS warfarin 5 mg tablet 5 mg PO DAILY 10/18/24 10/18/24 History Patient History Medical History GERD (gastroesophageal reflux disease) H/O: HTN (hypertension) Cardiac valvulopathy Surgical History Heart valve replaced Social History Smoking Status: Former smoker Do You Dip or Chew Tobacco: No; Hx Alcohol Use: No Hx Substance Use: Yes Preferred Language: Vietnamese Communication Ability: Effective Track Inspecting Supervisor Required: No Beliefs That Will Affect Care: None Current Living Situation: Spouse Other Information That Helps Us Care for You: No Feels Safe at Home: Yes Safety Concerns: Feels Safe At This Time Assistive Devices: None Review of Systems Review of Systems: All systems reviewed & are unremarkable except as noted in HPI & below Physical Exam Constitutional: WD/WN, vitals as above + obese Eyes: PERRL, conjunctivae normal, anicteric sclerae Neck: trachea midline, no thyromegaly Respiratory: normal respiratory effort; no respiratory distress and no labored breathing Cardiovascular: Rate/Rhythm: regular rate and regular rhythm Gastrointestinal (Abdomen): Inspection/Auscultation: abdomen normal to inspection; abdomen not distended Percussion/Palpation: abdomen soft Musculoskeletal: Extremities: + abnormal strength ( Decreased strength with handgrip right side); no cyanosis right third fourth fifth digits with decreased sensation over the left; normal temperature; large hematoma right upper extremity Skin: no rashes, warm and dry Psychiatric: A+Ox3, euthymic affect Results & Data Vital Signs (Past 12 Hours) Vital Signs Temp Pulse Pulse Pulse Resp BP BP 10/19/24 12:45 72 17 114/59 L 10/19/24 12:35 36.4 C L 77 19 129/66 10/19/24 11:02 36.6 C 76 101/63 10/19/24 10:36 36.5 C 76 15 101/63 10/19/24 09:39 36.5 C 75 14 106/70 10/19/24 09:09 36.6 C 73 20 91/52 L 10/19/24 08:54 36.5 C 72 14 89/54 L 10/19/24 08:36 36.6 C 81 16 92/57 L 10/19/24 07:25 36.9 C 81 20 101/65 Pulse Ox O2 Del Method O2 Flow Rate 10/19/24 12:45 100 Room Air 10/19/24 12:35 100 Oxymask 5 10/19/24 11:02 94 Room Air 10/19/24 10:36 97 10/19/24 09:39 97 10/19/24 09:09 94 10/19/24 08:54 96 10/19/24 08:36 97 10/19/24 07:25 91 Room Air Laboratory Results 10/19/24 10/19/24 10/19/24 Range/Units 13:25 13:19 07:19 WBC (4.8-10.8) K/ul RBC (4.70-6.10) M/uL Hgb 6.8 L* (14.0-18.0) g/dl Hct 20.9 L* (42.0-52.0) % MCV (80.0-100.0) fL MCH (25.0-34.0) pg MCHC (32.0-36.0) g/dL RDW Std Deviation (36.4-46.3) fL RDW Coeff of Rubin (11.5-14.5) % Plt Count (130-400) K/uL MPV (9.4-12.4) fL Immature Gran % (Auto) % Neut % (Auto) % Lymph % (Auto) % Cole % (Auto) % Eos % (Auto) % Baso % (Auto) % Neut # (Auto) (1.40-6.50) K/uL Lymph # (Auto) (1.20-3.40) K/uL Cole # (Auto) (0.11-0.59) K/uL Eos # (Auto) (0.00-0.50) K/uL Baso # (Auto) (0.00-0.20) K/uL Immature Gran # (Auto) (0.01-0.20) K/uL Polychromasia Hypochromasia Anisocytosis Microcytosis Ovalocytes Acanthocytes (Spur) PT INR APTT PTT Ratio Fibrinogen (184-400) mg/dl Heparin Anti-Xa, LM Wt (< 0.10) IU/ML Sodium (136-145) mmol/L Potassium (3.5-5.1) mmol/L Chloride (98-107) mmol/L Carbon Dioxide (21-32) mmol/L Anion Gap (3-11) BUN (6-23) mg/dl Creatinine (0.6-1.4) mg/dl Est Cr Clr Drug Dosing ml/min eGFR BUN/Creatinine Ratio (10-20) Glucose (70-99(Fasting)) mg/dl POC Glucose 128 H 141 H (70-99) mg/dl Calcium (8.6-10.3) mg/dl Magnesium (1.7-2.4) mg/dl Iron (35-175) mcg/dl TIBC (250-450) mcg/dl Transferrin (200-360) mg/dl Transferrin % Sat (20-50) % Ferritin (8-388) ng/ml Total Bilirubin (0.2-1.0) mg/dl AST (13-39) U/L ALT (7-52) U/L Alkaline Phosphatase (34-104) U/L Troponin I High Sens (0-20) pg/ml B-Natriuretic Peptide (0-100) pg/ml Total Protein (6.0-8.3) gm/dl Albumin (3.4-5.0) gm/dl Globulin (2.5-4.0) gm/dl Albumin/Globulin Ratio (0.9-2) Urine Color Urine Appearance (Clear) Urine pH (4.5-7.5) Ur Specific [place] (1.000-1.030) Urine Protein (Negative) Urine Glucose (UA) (Negative) Urine Ketones (Negative) Urine Blood (Negative) Urine Nitrite (Negative) Urine Bilirubin (Negative) Urine Urobilinogen (Negative) Ur Leukocyte Esterase (Negative) Urine WBC (Auto) (0-5) /hpf Urine RBC (Auto) (0-2) /hpf U Hyaline Cast (Auto) (0-2) /lpf U Epithel Cells (Auto) (0-2) /hpf Urine Bacteria (Auto) (None Seen) Urine Comment Blood Type Blood Type Recheck Antibody Screen Crossmatch 10/19/24 10/19/24 10/19/24 Range/Units 06:41 06:19 03:00 WBC 9.02 (4.8-10.8) K/ul RBC 2.48 L (4.70-6.10) M/uL Hgb 6.2 L* (14.0-18.0) g/dl Hct 19.0 L* (42.0-52.0) % MCV 76.6 L (80.0-100.0) fL MCH 25.0 (25.0-34.0) pg MCHC 32.6 (32.0-36.0) g/dL RDW Std Deviation 52.4 H (36.4-46.3) fL RDW Coeff of Rubin 18.9 H (11.5-14.5) % Plt Count 316 (130-400) K/uL MPV 10.5 (9.4-12.4) fL Immature Gran % (Auto) 0.6 % Neut % (Auto) 64.6 % Lymph % (Auto) 26.8 % Cole % (Auto) 6.3 % Eos % (Auto) 1.3 % Baso % (Auto) 0.4 % Neut # (Auto) 5.82 (1.40-6.50) K/uL Lymph # (Auto) 2.42 (1.20-3.40) K/uL Cole # (Auto) 0.57 (0.11-0.59) K/uL Eos # (Auto) 0.12 (0.00-0.50) K/uL Baso # (Auto) 0.04 (0.00-0.20) K/uL Immature Gran # (Auto) 0.05 (0.01-0.20) K/uL Polychromasia 1+ Hypochromasia Anisocytosis Microcytosis Present Ovalocytes 1+ Acanthocytes (Spur) PT 14.6 H INR 1.4 H APTT PTT Ratio Fibrinogen (184-400) mg/dl Heparin Anti-Xa, LM Wt (< 0.10) IU/ML Sodium 134 L (136-145) mmol/L Potassium 4.9 (3.5-5.1) mmol/L Chloride 104 (98-107) mmol/L Carbon Dioxide 26 (21-32) mmol/L Anion Gap 4 (3-11) BUN 25 H (6-23) mg/dl Creatinine 1.43 H (0.6-1.4) mg/dl Est Cr Clr Drug Dosing 66.5 ml/min eGFR 54.04 BUN/Creatinine Ratio 17.5 (10-20) Glucose 125 H (70-99(Fasting)) mg/dl POC Glucose 131 H (70-99) mg/dl Calcium 8.6 (8.6-10.3) mg/dl Magnesium 2.0 (1.7-2.4) mg/dl Iron (35-175) mcg/dl TIBC (250-450) mcg/dl Transferrin (200-360) mg/dl Transferrin % Sat (20-50) % Ferritin (8-388) ng/ml Total Bilirubin (0.2-1.0) mg/dl AST (13-39) U/L ALT (7-52) U/L Alkaline Phosphatase (34-104) U/L Troponin I High Sens (0-20) pg/ml B-Natriuretic Peptide (0-100) pg/ml Total Protein (6.0-8.3) gm/dl Albumin (3.4-5.0) gm/dl Globulin (2.5-4.0) gm/dl Albumin/Globulin Ratio (0.9-2) Urine Color Yellow Urine Appearance Clear (Clear) Urine pH 5.0 (4.5-7.5) Ur Specific [place] > 1.045 H (1.000-1.030) Urine Protein Negative (Negative) Urine Glucose (UA) Negative (Negative) Urine Ketones Negative (Negative) Urine Blood 3+ H (Negative) Urine Nitrite Negative (Negative) Urine Bilirubin Negative (Negative) Urine Urobilinogen Negative (Negative) Ur Leukocyte Esterase 1+ H (Negative) Urine WBC (Auto) 11-20 H (0-5) /hpf Urine RBC (Auto) >20 H (0-2) /hpf U Hyaline Cast (Auto) 6-10 H (0-2) /lpf U Epithel Cells (Auto) 3-5 H (0-2) /hpf Urine Bacteria (Auto) None Seen (None Seen) Urine Comment Blood Type Blood Type Recheck Antibody Screen Crossmatch 10/19/24 10/19/24 10/18/24 Range/Units 01:18 00:03 21:03 WBC (4.8-10.8) K/ul RBC (4.70-6.10) M/uL Hgb (14.0-18.0) g/dl Hct (42.0-52.0) % MCV (80.0-100.0) fL MCH (25.0-34.0) pg MCHC (32.0-36.0) g/dL RDW Std Deviation (36.4-46.3) fL RDW Coeff of Rubin (11.5-14.5) % Plt Count (130-400) K/uL MPV (9.4-12.4) fL Immature Gran % (Auto) % Neut % (Auto) % Lymph % (Auto) % Cole % (Auto) % Eos % (Auto) % Baso % (Auto) % Neut # (Auto) (1.40-6.50) K/uL Lymph # (Auto) (1.20-3.40) K/uL Cole # (Auto) (0.11-0.59) K/uL Eos # (Auto) (0.00-0.50) K/uL Baso # (Auto) (0.00-0.20) K/uL Immature Gran # (Auto) (0.01-0.20) K/uL Polychromasia Hypochromasia Anisocytosis Microcytosis Ovalocytes Acanthocytes (Spur) PT > 90.0 H INR > 10.1 H* APTT 104 H* PTT Ratio 3.9 Fibrinogen 357 (184-400) mg/dl Heparin Anti-Xa, LM Wt < 0.10 (< 0.10) IU/ML Sodium (136-145) mmol/L Potassium (3.5-5.1) mmol/L Chloride (98-107) mmol/L Carbon Dioxide (21-32) mmol/L Anion Gap (3-11) BUN (6-23) mg/dl Creatinine (0.6-1.4) mg/dl Est Cr Clr Drug Dosing ml/min eGFR BUN/Creatinine Ratio (10-20) Glucose (70-99(Fasting)) mg/dl POC Glucose 151 H (70-99) mg/dl Calcium (8.6-10.3) mg/dl Magnesium (1.7-2.4) mg/dl Iron (35-175) mcg/dl TIBC (250-450) mcg/dl Transferrin (200-360) mg/dl Transferrin % Sat (20-50) % Ferritin (8-388) ng/ml Total Bilirubin (0.2-1.0) mg/dl AST (13-39) U/L ALT (7-52) U/L Alkaline Phosphatase (34-104) U/L Troponin I High Sens (0-20) pg/ml B-Natriuretic Peptide (0-100) pg/ml Total Protein (6.0-8.3) gm/dl Albumin (3.4-5.0) gm/dl Globulin (2.5-4.0) gm/dl Albumin/Globulin Ratio (0.9-2) Urine Color Urine Appearance (Clear) Urine pH (4.5-7.5) Ur Specific [place] (1.000-1.030) Urine Protein (Negative) Urine Glucose (UA) (Negative) Urine Ketones (Negative) Urine Blood (Negative) Urine Nitrite (Negative) Urine Bilirubin (Negative) Urine Urobilinogen (Negative) Ur Leukocyte Esterase (Negative) Urine WBC (Auto) (0-5) /hpf Urine RBC (Auto) (0-2) /hpf U Hyaline Cast (Auto) (0-2) /lpf U Epithel Cells (Auto) (0-2) /hpf Urine Bacteria (Auto) (None Seen) Urine Comment Blood Type A Positive Blood Type Recheck A Positive Antibody Screen NEGATIVE Crossmatch See Detail 10/18/24 Range/Units 19:08 WBC 13.02 H (4.8-10.8) K/ul RBC 3.07 L (4.70-6.10) M/uL Hgb 7.6 L (14.0-18.0) g/dl Hct 24.2 L (42.0-52.0) % MCV 78.8 L (80.0-100.0) fL MCH 24.8 L (25.0-34.0) pg MCHC 31.4 L (32.0-36.0) g/dL RDW Std Deviation 53.9 H (36.4-46.3) fL RDW Coeff of Rubin 18.8 H (11.5-14.5) % Plt Count 362 (130-400) K/uL MPV 10.7 (9.4-12.4) fL Immature Gran % (Auto) 1.2 % Neut % (Auto) 82.9 % Lymph % (Auto) 11.0 % Cole % (Auto) 4.3 % Eos % (Auto) 0.2 % Baso % (Auto) 0.4 % Neut # (Auto) 10.79 H (1.40-6.50) K/uL Lymph # (Auto) 1.43 (1.20-3.40) K/uL Cole # (Auto) 0.56 (0.11-0.59) K/uL Eos # (Auto) 0.03 (0.00-0.50) K/uL Baso # (Auto) 0.05 (0.00-0.20) K/uL Immature Gran # (Auto) 0.16 (0.01-0.20) K/uL Polychromasia Hypochromasia Present Anisocytosis Present Microcytosis Ovalocytes 1+ Acanthocytes (Spur) 1+ PT Cancelled INR Cancelled APTT Cancelled PTT Ratio Cancelled Fibrinogen (184-400) mg/dl Heparin Anti-Xa, LM Wt (< 0.10) IU/ML Sodium 135 L (136-145) mmol/L Potassium 4.5 (3.5-5.1) mmol/L Chloride 102 (98-107) mmol/L Carbon Dioxide 23 (21-32) mmol/L Anion Gap 10 (3-11) BUN 22 (6-23) mg/dl Creatinine 1.38 (0.6-1.4) mg/dl Est Cr Clr Drug Dosing 65.9 ml/min eGFR 56.40 BUN/Creatinine Ratio 15.9 (10-20) Glucose 139 H (70-99(Fasting)) mg/dl POC Glucose (70-99) mg/dl Calcium 9.2 (8.6-10.3) mg/dl Magnesium (1.7-2.4) mg/dl Iron 29 L (35-175) mcg/dl TIBC 434 (250-450) mcg/dl Transferrin 310 (200-360) mg/dl Transferrin % Sat 7 L (20-50) % Ferritin 34.2 (8-388) ng/ml Total Bilirubin 0.7 (0.2-1.0) mg/dl AST 24 (13-39) U/L ALT 14 (7-52) U/L Alkaline Phosphatase 55 (34-104) U/L Troponin I High Sens 10.3 (0-20) pg/ml B-Natriuretic Peptide 96 (0-100) pg/ml Total Protein 6.6 (6.0-8.3) gm/dl Albumin 3.6 (3.4-5.0) gm/dl Globulin 3.0 (2.5-4.0) gm/dl Albumin/Globulin Ratio 1.2 (0.9-2) Urine Color Urine Appearance (Clear) Urine pH (4.5-7.5) Ur Specific [place] (1.000-1.030) Urine Protein (Negative) Urine Glucose (UA) (Negative) Urine Ketones (Negative) Urine Blood (Negative) Urine Nitrite (Negative) Urine Bilirubin (Negative) Urine Urobilinogen (Negative) Ur Leukocyte Esterase (Negative) Urine WBC (Auto) (0-5) /hpf Urine RBC (Auto) (0-2) /hpf U Hyaline Cast (Auto) (0-2) /lpf U Epithel Cells (Auto) (0-2) /hpf Urine Bacteria (Auto) (None Seen) Urine Comment Blood Type Blood Type Recheck Antibody Screen Crossmatch Diagnostic Findings EXAM: CT angio humerus RT wo/w con [facility]UM[phone] [facility] 1:33 AM [employer], 10/19/2024, and WILEY Bae was informed regarding the presence of critical medical findings in the report and she confirmed that they have received the report. Electronically signed by Addi Rico 10-19-2024 02:39 AM ADDENDUM END EXAM: CT angio humerus RT wo/w con CLINICAL HISTORY: Right arm hematoma. inr 10. could be active bleeding. TECHNIQUE: CT angiography study of the right arm vessels with IV contrast was performed and multiple axial sections were obtained with coronal and sagittal reconstructions. 120 ml Optiray 320 was administered. One of the following dose reduction techniques was utilized for this exam: Automated exposure control, adjustment of the mA and/or kV according to patient size, and use of iterative reconstruction. One of these 3D techniques was utilized: Maximum Intensity Pixel (MIP), 3D Reconstructed Images, Volume Rendered Images, Surface Shaded Rendering. COMPARISON: None. FINDINGS: Vessels: Right subclavian, axillary, brachial, radial, and ulnar arteries are patent without evidence of stenosis, occlusion, dissection, or pseudoaneurysm. No active arterial contrast extravasation. Musculoskeletal: Hypodense intramuscular collection within the biceps muscle belly of the upper arm, measuring approximately 54 × 37 mm, with surrounding muscle edema. The collection demonstrates faint hyperdensities, measuring 38 HU pre-contrast and 62 HU post-contrast, findings suggestive of active bleeding, likely venous in origin. No acute fracture or destructive bony lesion. Soft tissues: Marked diffuse subcutaneous soft tissue edema involving the right upper arm, extending into adjacent fascial planes. No subcutaneous emphysema or foreign body. Other: Surrounding fat planes are partially obscured by edema. No abnormal lymphadenopathy identified in the scanned field. IMPRESSION: 1. Intramuscular hematoma within the right biceps muscle belly, with pre- to post-contrast enhancement (38 ? 62 HU), suggestive of active bleeding, likely venous in origin. 2. Marked diffuse subcutaneous soft tissue edema of the right upper arm. 3. No CT angiographic evidence of arterial injury, pseudoaneurysm, or active arterial contrast extravasation. Electronically signed by Addi Rico 10-19-2024 02:34 AM Dictated: 10/18/24 0032 Transcribed:
[2024-10-19 13:47] LABS: Hematocrit (blood only) 20.9 % (42.0-52.0); Hemoglobin 6.8 g/dl (14.0-18.0)
[2024-10-19] MEDS: PIPERACILLIN/TAZOBACTAM 4.5 GM/100 ML BAG IV SCH (14:54)
--- NOTE | 2024-10-19 15:00 | Orthopedic Consultation ---
Date of Consultation October 19, 2024 Assessment & Plan (1) Traumatic hematoma of right upper arm: (2) Upper GI bleeding: (3) Symptomatic anemia: (4) H/O mechanical aortic valve replacement: (5) Hx of mitral valve replacement with mechanical valve: (6) Nonobstructive atherosclerosis of coronary artery: (7) Ascending aortic aneurysm: (8) HTN (hypertension): (9) Dyslipidemia, goal LDL below 70: (10) Melena: (11) Hematochezia: Rick Kirby is a quite sick 64-year-old gentleman who initially presented to the emergency department for symptomatic anemia. He was found to have a supratherapeutic INR which has since been reversed. He was diagnosed with GI bleed and has had endoscopy performed by the GI team as well. Per GI, he is okay to resume his Coumadin. The patient has had multiple consultations (I am the third) with regards to his right upper extremity. First, vascular surgery saw the patient this morning and recommended elevation in order to help resolve his hematoma. It was not felt at that time that the patient was showing signs or symptoms of compartment syndrome. General surgery was also consulted and they had concern for compartment syndrome and as such orthopedics was consulted. I did discuss this case with Dr. Glass as well. The primary question from the medical standpoint is when it is okay to resume the patient's Coumadin. On my evaluation today, the patient shows no signs or symptoms of compartment syndrome. I did discuss with him in great detail the pathoanatomy, pathophysiology, treatment options for compartment syndrome. I explained to him that compartment syndrome represents a surgical emergency and oftentimes presents with significant pain within a muscular compartment. Late signs of compartment syndrome include change in color, pulses, and feeling in extremity. On my evaluation today, the patient has no pain with passive range of motion of his shoulder, elbow, hand, wrist. His presentation at this time is not consistent with acute compartment syndrome. The patient CTA does show an intramuscular hematoma. I suspect this is related to his supratherapeutic INR. Now that it has been reversed back to and appropriate level, I suspect that he will be able to clot the area of concern that initially started about a week ago while he was at camp. As far as when to resume Coumadin, I suspect that the medical team will wait until the patient's hemoglobin is at an appropriate level prior to restarting th is. With regards to the patient's right upper extremity, there is a risk/benefit analysis that should be made in starting anticoagulation medications as it relates to a potential active bleed. Based on their note from earlier, it is felt by the vascular surgery team - who would certainly be the experts on vascular bleeding - that this is venous in nature. I would defer to them as to when an appropriate time to restart Coumadin would be, but I suspect that in the time it takes for the patient's hemoglobin to stabilize while he is being transfused, the bleeding vessel in his upper extremity would have clotted. once the patient's hemoglobin stabilized and his Coumadin is restarted, should the patient's right upper extremity picture worsen, I would have a very low threshold to reconsult the vascular team to determine if any intervention is necessary for a active bleeding vessel. At this point there are no plans for acute orthopedic intervention. The patient has no signs or symptoms of compartment syndrome at this time. History of Present Illness Reason for Consultation: right arm hematoma Attending Physician: Jose Glass MD History of Present Illness 64-year-old male with past medical history significant for type 2 diabetes, dyslipidemia, hypertriglyceridemia, paroxysmal atrial fibrillation, ascending aortic enlargement, hypertension, obesity, GERD, colon polyps, overactive bladder, status post aortic valve replacement, status post mitral valve replacement, general anxiety disorder, comes to ER initially because of the dizziness and fall and rectal bleed and found to have anemia. Patient states he is feeling dizzy for last few days. Last Sunday in the camp he fell down to the right side. Did not hit his head. No loss of consciousness. Upon presentation to the emergency department he was found to have a supratherapeutic INR and a GI bleed. His supratherapeutic INR has been addressed and he has had GI consultation with endoscopy. the patient first presented, his right upper e xtremity swelling was an area of concern and as such vascular surgery was consulted. Patient was seen by the vascular surgery team this morning. At that time, CTA was done and it was thought that the source of bleeding was venous in the right upper extremity. patient showed no signs or symptoms of compartment syndrome at that time. A general surgery consult was also ordered and they were concerned about possible developing compartment syndrome and as such orthopedics was apparently consulted. I saw the patient this afternoon about 30 minutes after being called for evaluation of potential compartment syndrome. On my evaluation, the patient notes that his arm feels the same as it has for the last few days. He denies numbness or tingling that is worse than his baseline from neuropathy. He denies significant pain in his arm. Allergies Allergy/AdvReac Type Severity Reaction Status Date / Time No Known Allergies Allergy Verified 10/18/24 19:28 Home Medications Medication Instructions Recorded Confirmed Type atorvastatin 40 mg tablet 40 mg PO DAILY 10/18/24 10/18/24 History escitalopram oxalate 10 mg tablet 10 mg PO DAILY 10/18/24 10/18/24 History fenofibrate micronized 134 mg 134 mg PO DAILY 10/18/24 10/18/24 History capsule gabapentin 100 mg capsule 100 mg PO HS 10/18/24 10/18/24 History lisinopril 20 mg tablet 20 mg PO DAILY 10/18/24 10/18/24 History meclizine 25 mg tablet 25 mg PO BID PRN Dizziness 10/18/24 10/18/24 History metformin 500 mg tablet 500 mg PO DAILY 10/18/24 10/18/24 History metoprolol tartrate 50 mg tablet 25 mg PO BID 10/18/24 10/18/24 History [id number] acid-vit 1 tab PO DAILY 10/18/24 10/18/24 History K-lycop 400 mcg-20 mcg-370 mcg tablet (Men's 50 Plus Multivitamin) omeprazole 20 mg capsule,delayed 20 mg PO DAILYBB 10/18/24 10/18/24 History release oxybutynin chloride 10 mg 10 mg PO DAILY 10/18/24 10/18/24 History tablet,extended release 24 hr triamcinolone acetonide 0.1 % 1 applic topical BID PRN SKIN 10/18/24 10/18/24 History topical cream IRRITATIONS warfarin 5 mg tablet 5 mg PO DAILY 10/18/24 10/18/24 History Patient History Medical History GERD (gastroesophageal reflux disease) H/O: HTN (hypertension) Cardiac valvulopathy Surgical History Heart valve replaced Social History Smoking Status: Former smoker Do You Dip or Chew Tobacco: No; Hx Alcohol Use: No Hx Substance Use: Yes Preferred Language: Turkmen Communication Ability: Effective Skein Washer Required: No Beliefs That Will Affect Care: None Current Living Situation: Spouse Other Information That Helps Us Care for You: No Feels Safe at Home: Yes Safety Concerns: Feels Safe At This Time Assistive Devices: None Review of Systems Review of Systems: All systems reviewed & are unremarkable except as noted in HPI & below Physical Exam Physical Exam: On physical examination, the patient has palpable radial and ulnar pulses. He has brisk capillary refill in his hand. He is somewhat diminished sensation in his median and ulnar nerve distribution which the patient notes is at baseline. He has intact AIN, PIN, radial, median, ulnar nerve function. On palpation of the patient's upper extremity, his compartments are soft and easily compressible. He has minimal tenderness palpation along his biceps. He has no pain in his arm with passive range of motion of the shoulder, elbow, hand, wrist. Results & Data Vital Signs (Past 12 Hours) Vital Signs Temp Pulse Pulse Pulse Resp BP BP 10/19/24 14:29 36.6 C 88 15 113/72 10/19/24 14:14 36.6 C 82 15 117/69 10/19/24 13:58 36.6 C 80 18 125/73 10/19/24 12:45 72 17 114/59 L 10/19/24 12:35 36.4 C L 77 19 129/66 10/19/24 11:02 36.6 C 76 101/63 10/19/24 10:36 36.5 C 76 15 101/63 10/19/24 09:39 36.5 C 75 14 106/70 10/19/24 09:09 36.6 C 73 20 91/52 L 10/19/24 08:54 36.5 C 72 14 89/54 L 10/19/24 08:36 36.6 C 81 16 92/57 L 10/19/24 07:25 36.9 C 81 20 101/65 Pulse Ox O2 Del Method O2 Flow Rate 10/19/24 14:29 97 10/19/24 14:14 95 10/19/24 13:58 93 10/19/24 12:45 100 Room Air 10/19/24 12:35 100 Oxymask 5 10/19/24 11:02 94 Room Air 10/19/24 10:36 97 10/19/24 09:39 97 10/19/24 09:09 94 10/19/24 08:54 96 10/19/24 08:36 97 10/19/24 07:25 91 Room Air Laboratory Results Most recent hemoglobin 6.8 most recent INR 1.[address] of the right upper extremity personally interpreted and reviewed. Demonstrates findings concerning for potential active bleed within the right biceps.
[2024-10-19 17:30] LABS: Hematocrit (blood only) 24.3 % (42.0-52.0); Hemoglobin 7.8 g/dl (14.0-18.0)
--- NOTE | 2024-10-19 18:54 | Anesthesiology Progress Note ---
Date of Service October 19, 2024 Anesthesia Post Procedure Vital Signs Vital Signs: Temp Pulse Pulse Pulse Resp BP BP 10/19/24 16:25 86 15 144/77 H 10/19/24 16:25 36.5 C 86 15 144/77 H 10/19/24 15:59 36.6 C 88 17 117/73 10/19/24 15:00 83 10/19/24 14:59 36.5 C 99 H 16 130/73 10/19/24 14:29 36.6 C 88 15 113/72 10/19/24 14:14 36.6 C 82 15 117/69 10/19/24 13:58 36.6 C 80 18 125/73 10/19/24 12:45 72 17 114/59 L 10/19/24 12:35 36.4 C L 77 19 129/66 10/19/24 11:02 36.6 C 76 101/63 10/19/24 10:36 36.5 C 76 15 101/63 10/19/24 09:39 36.5 C 75 14 106/70 10/19/24 09:09 36.6 C 73 20 91/52 L 10/19/24 08:54 36.5 C 72 14 89/54 L 10/19/24 08:36 36.6 C 81 16 92/57 L 10/19/24 07:25 36.9 C 81 20 101/65 10/19/24 07:20 76 10/19/24 01:07 36.5 C 75 16 142/80 H 10/19/24 00:45 36.5 C 75 16 142/80 H 10/18/24 23:41 74 20 140/80 10/18/24 22:44 73 10/18/24 22:00 84 20 148/76 H 10/18/24 21:00 67 20 108/77 10/18/24 20:00 70 20 133/77 10/18/24 19:32 68 20 114/78 10/18/24 18:55 66 20 Pulse Ox O2 Del Method O2 Flow Rate 10/19/24 16:25 99 10/19/24 16:25 99 10/19/24 15:59 97 10/19/24 15:00 10/19/24 14:59 94 10/19/24 14:29 97 10/19/24 14:14 95 10/19/24 13:58 93 10/19/24 12:45 100 Room Air 10/19/24 12:35 100 Oxymask 5 10/19/24 11:02 94 Room Air 10/19/24 10:36 97 10/19/24 09:39 97 10/19/24 09:09 94 10/19/24 08:54 96 10/19/24 08:36 97 10/19/24 07:25 91 Room Air 10/19/24 07:20 10/19/24 01:07 98 Room Air 10/19/24 00:45 98 Room Air 10/18/24 23:41 95 Room Air 10/18/24 22:44 10/18/24 22:00 95 Room Air 10/18/24 21:00 99 Room Air 10/18/24 20:00 95 Room Air 10/18/24 19:32 98 Room Air 10/18/24 18:55 98 Room Air Pain Intensity Generalized: Pain Intensity: 3 Transfer of Care Handoff Completed per policy Notes Mental Status: alert / awake / arousable Patient Amnestic to Procedure: Yes Nausea / Vomiting: adequately controlled Pain: adequately controlled Airway Patency, RR, SpO2: stable & adequate BP & HR: stable & adequate Hydration State: stable & adequate Anesthetic Complications: no major complications apparent
[2024-10-19] MEDS: GABAPENTIN 100 MG CAP PO SCH (21:11)
[2024-10-19 23:30] LABS: Hematocrit (blood only) 22.5 % (42.0-52.0); Hemoglobin 7.4 g/dl (14.0-18.0)
[2024-10-20 07:45] LABS: Hematocrit (blood only) 22.0 % (42.0-52.0); Hemoglobin 7.3 g/dl (14.0-18.0); Mean Corpuscular Hemoglobin 26.2 pg (25.0-34.0); Mean Corpuscular Volume 78.9 fL (80.0-100.0); Platelet Count 288 K/uL (130-400); RDW Standard Deviation 53.3 fL (36.4-46.3); Red Blood Count 2.79 M/uL (4.70-6.10); White Blood Count 8.55 K/ul (4.8-10.8)
[2024-10-20 08:12] LABS: Anion Gap 2.0 (3-11); Blood Urea Nitrogen 20.0 mg/dl (6-23); Calcium 8.4 mg/dl (8.6-10.3); Carbon Dioxide 27.0 mmol/L (21-32); Chloride 107.0 mmol/L (98-107); Creatinine Clr Calc Pharmacy 102.4 ml/min; Glucose 118.0 mg/dl (70-99(Fasting)); Magnesium 1.8 mg/dl (1.7-2.4); Potassium 4.4 mmol/L (3.5-5.1); Sodium 136.0 mmol/L (136-145)
[2024-10-20 08:42] LABS: INR 1.2 (0.9-1.1); Prothrombin Time 12.4 Seconds (9.0-12.0)
--- NOTE | 2024-10-20 09:36 | Hospitalist Progress Note ---
Date of Service October 20, 2024 Assessment & Plan (1) Symptomatic anemia: Plan: 64-year-old male with past medical history significant for type 2 diabetes, dyslipidemia, hypertriglyceridemia, paroxysmal atrial fibrillation, ascending aortic enlargement, hypertension, obesity, GERD, colon polyps, overactive bladder, status post aortic valve replacement, status post mitral valve replacement, general anxiety disorder, comes because of the dizziness and fall and rectal bleed and found to have anemia. Patient states he is feeling dizzy for last few days. Last Sunday in the camp he fell down to the right side. Did not hit his head. No loss of consciousness. Again he fell once in the bathroom, went down slowly. And today dizziness was worse which prompted him to come to the ER. He also has a bruise and swelling in his right arm from the fall. And also swelling in his right leg. Has pain in in the right leg and arm. Denies any chest pain or shortness of breath. No headache. No runny nose or sore throat. No cough. Afebrile. No nausea. No abdominal pain. Also having some blood in the stools that he thought it was from hemorrhoids. Denies any blood in the urine. Currently hemodynamics are okay. Symptomatic anemia Presents with dizziness and fall Hemoglobin 7.6 on admission, then down to 6.2 (10/19 AM) Hemoglobin was 12.8 on 05/10/2024 INR greater than 10 on admission Received IV vitamin K 10 mg and Kcentra --> INR down to 1.4 (8 AM) S/p 2 units of PRBC 10/20 - Hgb 7.3, stable from last evening at 7.4 R arm less edematous INR 1.2 - will start IV heparin Close monitor hemodynamics CT head no acute findings. CT abdomen pelvis no acute findings Telemetry Right lower extremity swelling and right upper extremity swelling Since fall Doppler of LEs is negative CTA right upper ext active venous bleeding in biceps- d/w vascular surgery- to elevate upper extremity and monitor. If swelling becomes large to consult general surgery 10/19 R upper extremity edematous, pt reports he had some finger numbness when he presented here but now it feels better - will consult w/ gen. surgery further. Also discussed w/ orthop. surgery - no compartment syndrome. - cont. to closely monitor 10/20 R arm edema much improved today, feels better per pt Hgb stable, INR 1.2 - discussed w/ orthop. surg.- ok to start anticoagulation - will start IV heparin Rectal bleed Anemia On Protonix drip Got vitamin K and Kcentra for elevated INR Coumadin on hold N.p.o., IV fluids getting two units prbc follow h and h Telemetry GI consulted - s/p EGD, per GI ok to start anticoagulation Diabetes Hold p.o. 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 valves, will need resume as soon as possible Cardiology consulted 10/20 Plan to start anticoag w/ IV heparin as above Mild nonobstructive CAD On cardiac cath 2016 Continue statin and metoprolol tartrate Hypertension Continue metoprolol with holding parameters. Hold lisinopril for now Hyperlipidemia and hypertriglyceridemia Continue atorvastatin and fenofibrate History of atrial fibrillation/flutter On metoprolol with hold parameters Holding Coumadin for now GERD Currently on PPI drip Dilated aortic root and ascending aorta at 3.9 and 4.1 cm Follow-up Generalized anxiety disorder On Lexapro DVT prophylaxis SCDs for now -> startin iv heparin Disposition Telemetry Full code. Admission and Anticipated Discharge Date Admission Date: October 18, 2024 Subjective Pt seen in follow up of symptomatic anemia, supratherap. INR (anticoag.for mech. valves), s/p fall, R arm swelling and CTA c/w active venous bleed Also w/ poss. GI bleed, on PPI (pt feels it's hemorrhoids and not significant). GI consulted - underwent EGD, per GI ok to start anticoagulation. R arm edema, ecchymosis - today arm less edematous. Pt reports feeling better overall, not as tense. Pt seen by vasc. surgery, gen. surg., and orthopedics yesterday to eval his arm. Currently lying in bed in NAD Says he had a good night. Denies any chest pain, shortness of breath. Denies abd. pain, NUNEZ. As above R arm feels better and less edematous. He is awake, alert, oriented, answers appropriately. Hgb 7.3, stable from last evening. INR down at 1.2 Discussed w/ ortho over TT - ok to start anticoag., plan to start iv heparin. Close monitoring H&H, and for any changes with his arm. Review of Systems Review of Systems: All systems reviewed & are unremarkable except as noted in Subjective Physical Exam Physical Exam: General-Not in acute distress Head- NC/AT Eyes- PERRL. Neck- supple, no JVD. Lungs- clear to auscultation no wheezing or crackles. Heart- regular rhythm Abdomen- normal bowel sounds, soft, nontender, no distension Extremities- right arm w/ edema, ecchymosis (edema much improved from yesterday). Able to move fingers, currently denies numbness in fingers. Neuro- alert, oriented PERRL, no facial palsy; no dysarthria; moves extremities Results & Data Results & Data Vital Signs (Past 12 Hours) Vital Signs Temp Pulse Resp BP Pulse Ox O2 Del Method 10/20/24 07:10 36.8 C 89 20 106/66 93 Room Air 10/20/24 03:54 36.7 C 86 16 112/70 95 Room Air 10/19/24 23:14 37.7 C H 84 17 95/57 L 96 Room Air Laboratory Results 10/20/24 10/20/24 10/19/24 Range/Units 07:20 05:51 23:51 WBC 8.55 (4.8-10.8) K/ul RBC 2.79 L (4.70-6.10) M/uL Hgb 7.3 L (14.0-18.0) g/dl Hct 22.0 L (42.0-52.0) % MCV 78.9 L (80.0-100.0) fL MCH 26.2 (25.0-34.0) pg MCHC 33.2 (32.0-36.0) g/dL RDW Std Deviation 53.3 H (36.4-46.3) fL RDW Coeff of Rubin 18.6 H (11.5-14.5) % Plt Count 288 (130-400) K/uL MPV 9.7 (9.4-12.4) fL PT 12.4 H (9.0-12.0) Seconds INR 1.2 H (0.9-1.1) Sodium 136 (136-145) mmol/L Potassium 4.4 (3.5-5.1) mmol/L Chloride 107 (98-107) mmol/L Carbon Dioxide 27 (21-32) mmol/L Anion Gap 2 L (3-11) BUN 20 (6-23) mg/dl Creatinine 0.95 D (0.6-1.4) mg/dl Est Cr Clr Drug Dosing 102.4 ml/min eGFR 88.28 BUN/Creatinine Ratio 21.1 H (10-20) Glucose 118 H (70-99(Fasting)) mg/dl POC Glucose 122 H 134 H (70-99) mg/dl Calcium 8.4 L (8.6-10.3) mg/dl Phosphorus 1.9 L (2.5-4.9) mg/dl Magnesium 1.8 (1.7-2.4) mg/dl Blood Type Antibody Screen Crossmatch 10/19/24 10/19/24 10/19/24 Range/Units 23:19 18:05 17:14 WBC (4.8-10.8) K/ul RBC (4.70-6.10) M/uL Hgb 7.4 L 7.8 L (14.0-18.0) g/dl Hct 22.5 L 24.3 L (42.0-52.0) % MCV (80.0-100.0) fL MCH (25.0-34.0) pg MCHC (32.0-36.0) g/dL RDW Std Deviation (36.4-46.3) fL RDW Coeff of Rubin (11.5-14.5) % Plt Count (130-400) K/uL MPV (9.4-12.4) fL PT (9.0-12.0) Seconds INR (0.9-1.1) Sodium (136-145) mmol/L Potassium (3.5-5.1) mmol/L Chloride (98-107) mmol/L Carbon Dioxide (21-32) mmol/L Anion Gap (3-11) BUN (6-23) mg/dl Creatinine (0.6-1.4) mg/dl Est Cr Clr Drug Dosing ml/min eGFR BUN/Creatinine Ratio (10-20) Glucose (70-99(Fasting)) mg/dl POC Glucose 131 H (70-99) mg/dl Calcium (8.6-10.3) mg/dl Phosphorus (2.5-4.9) mg/dl Magnesium (1.7-2.4) mg/dl Blood Type Antibody Screen Crossmatch 10/19/24 10/19/24 10/18/24 Range/Units 13:25 13:19 21:03 WBC (4.8-10.8) K/ul RBC (4.70-6.10) M/uL Hgb 6.8 L* (14.0-18.0) g/dl Hct 20.9 L* (42.0-52.0) % MCV (80.0-100.0) fL MCH (25.0-34.0) pg MCHC (32.0-36.0) g/dL RDW Std Deviation (36.4-46.3) fL RDW Coeff of Rubin (11.5-14.5) % Plt Count (130-400) K/uL MPV (9.4-12.4) fL PT (9.0-12.0) Seconds INR (0.9-1.1) Sodium (136-145) mmol/L Potassium (3.5-5.1) mmol/L Chloride (98-107) mmol/L Carbon Dioxide (21-32) mmol/L Anion Gap (3-11) BUN (6-23) mg/dl Creatinine (0.6-1.4) mg/dl Est Cr Clr Drug Dosing ml/min eGFR BUN/Creatinine Ratio (10-20) Glucose (70-99(Fasting)) mg/dl POC Glucose 128 H (70-99) mg/dl Calcium (8.6-10.3) mg/dl Phosphorus (2.5-4.9) mg/dl Magnesium (1.7-2.4) mg/dl Blood Type A Positive Antibody Screen NEGATIVE Crossmatch See Detail Medications Administered Current Inpatient Medications Atorvastatin Calcium (Atorvastatin 40 Mg Tab) 40 mg PO DAILY ODRY Stop: 11/18/24 08:59 Last Admin: 10/20/24 08:01 Dose: 40 mg Dextrose (Dextrose 50% 50 Ml Syringe) 25 - 50 ml IV UD PRN; Protocol PRN Reason: Hypoglycemia Protocol Stop: 11/18/24 01:01 Escitalopram Oxalate (Escitalopram Oxalate 10 Mg Tab) 10 mg PO DAILY DORY Stop: 11/18/24 08:59 Last Admin: 10/20/24 08:01 Dose: 10 mg Fenofibrate (Fenofibrate Nanocrystallized 145 Mg Tablet) 145 mg PO DAILY DORY Stop: 11/18/24 08:59 Last Admin: 10/20/24 08:00 Dose: 145 mg Gabapentin (Gabapentin 100 Mg Cap) 100 mg PO HS DORY Stop: 11/18/24 20:59 Last Admin: 10/19/24 21:11 Dose: 100 mg Glucagon (Glucagon For Inj 1 Mg Vial) 1 mg SQ UD PRN; Protocol PRN Reason: Hypoglycemia Protocol Stop: 11/18/24 01:01 Glucose (Glucose 40% Gel 15 Gm Tube) 15 - 30 gm PO UD PRN; Protocol PRN Reason: Hypoglycemia Protocol Stop: 11/18/24 01:01 Glucose (Glucose 10 Tab/Tube) 4 - 8 tab PO UD PRN; Protocol PRN Reason: Hypoglycemia Protocol Stop: 11/18/24 01:01 Heparin Sodium/Dextrose (Heparin Iv Adult Wt-Based Low-Dose *No* Initial Bolus Protocol) 1 each IV Q15M DORY; Protocol Stop: 10/20/24 16:00 Hydromorphone HCl (Hydromorphone Inj 0.5 Mg/0.5 Ml Syr) 0.25 mg IV Q3H PRN PRN Reason: Mod-Sev Pain (Scale 4-10) Stop: 11/02/24 01:01 Piperacillin Sod/Tazobactam Sod (Zosyn) 4.5 gm in 100 mls @ 25 mls/hr IV Q8H [facility]; Protocol Stop: 10/24/24 13:59 Last Admin: 10/20/24 05:54 Dose: 25 mls/hr Heparin Sodium/Dextrose (Heparin 30758 Unit/500 Ml D5w) 25,000 units in 500 mls @ 20 mls/hr IV .Q24H [facility]; Protocol Stop: 11/19/24 09:44 Insulin Aspart (Insulin Aspart Per Unit Charge) 0 units SC Q6 DORY Stop: 11/18/24 05:59 Last Admin: 10/20/24 05:53 Dose: Not Given Meclizine HCl (Meclizine Hcl 25 Mg Tab) 25 mg PO BID PRN PRN Reason: Dizziness Stop: 11/18/24 01:01 Metoprolol Tartrate (Metoprolol Tartrate 25 Mg Tab) 25 mg PO BID DORY Stop: 11/18/24 08:59 Last Admin: 10/20/24 08:00 Dose: 25 mg Miscellaneous (Carbohydrates For Hypoglycemia ) 15 - 30 gm PO UD PRN PRN Reason: Hypoglycemia Protocol Stop: 11/18/24 01:01 Multivitamins/Minerals (Cerovite Adv Formula Tab) 1 tab PO DAILY DORY Stop: 11/18/24 08:59 Last Admin: 10/20/24 08:00 Dose: 1 tab Nitroglycerin (Nitroglycerin Sl 0.4 Mg/Tab Tab) 0.4 mg SL Q5M PRN PRN Reason: Chest Pain Stop: 11/18/24 01:01 Oxybutynin Chloride (Oxybutynin Chloride Xl 5 Mg Tabcr) 10 mg PO DAILY DORY Stop: 11/18/24 08:59 Last Admin: 10/20/24 08:00 Dose: 10 mg Pantoprazole Sodium (Pantoprazole 40 Mg Tab) 40 mg PO BID DORY Stop: 11/18/24 20:59 Last Admin: 10/20/24 07:59 Dose: 40 mg Potassium Phosphate (Pot Phosphate Monobasic W/ Sod Tab) 1 tab PO QID [facility] Stop: 11/19/24 08:59
[2024-10-20] MEDS: POT PHOSPHATE MONOBASIC W/ SOD TAB PO SCH (09:49)
--- NOTE | 2024-10-20 09:50 | Cardiology Progress Note ---
Date of Service October 20, 2024 Assessment & Plan (1) Traumatic hematoma of right upper arm: (2) Upper GI bleeding: (3) Symptomatic anemia: (4) H/O mechanical aortic valve replacement: (5) Hx of mitral valve replacement with mechanical valve: (6) Nonobstructive atherosclerosis of coronary artery: (7) Ascending aortic aneurysm: (8) HTN (hypertension): (9) Dyslipidemia, goal LDL below 70: Plan Mechanical fall on Saturday, October 12, 2024 while camping at [facility], r esultant right upper extremity injury with upper extremity CTA imaging on October 18, 2024 revealing intramuscular hematoma within the right biceps muscle belly, with pre- to post-contrast enhancement suggestive of active venous bleeding and marked diffuse subcutaneous soft tissue edema of the right upper arm. No CT angiographic evidence of arterial injury, pseudoaneurysm, or active arterial contrast extravasation. Vascular and General Surgery consultations requested by Hospitalist Service. Coagulopathy GI bleed S/P EGD - results noted R arm traumatic hematoma Symptomatic anemia s/p fall S/P mechanical AVR S/P mechanical MVR AFib/flutter Hypertension Hyperlipidemia f/u H/H GI and surgery f/u Coumadin has been started. However, it will take a few days before therapeutic INR of at least 2.5 will be acheived, especially since patient received Vitamin K as soon as ok with GI and surgery start anticoagulation with IV heparin + Coumadin for therapeutic INR of 2.5 to 3.5; DC IV Heparin when INR reaches 2.5 - DW primary MD and RN f/u H/H, PT/INR daily PRBC as indicated correct and f/u electrolytes f/u renal function cont bblkr cont statin Admission and Anticipated Discharge Date Admission Date: October 18, 2024 Subjective Pt seen in follow up of symptomatic anemia, supratherap. INR (anticoag.for mech. valves), s/p fall, R arm swelling and CTA c/w active venous bleed. Also w/ poss. GI bleed, on PPI (pt feels it's hemorrhoids and not significant). GI consulted - underwent EGD, per GI ok to start anticoagulation. R arm edema, ecchymosis - today arm less edematous. Pt reports feeling better overall, not as tense. Pt seen by vasc. surgery, gen. surg., and orthopedics yesterday to eval his arm. Currently lying in bed in [facility] Says he had a good night. Denies any chest pain, shortness of breath. Denies abd. pain, NUNEZ. As above R arm feels better and less edematous. 10/20/24 - Patient on exam is lying in bed in NAD; no c/o cp, sob, palpitations, dizziness, LOC, cough, fever, nausea, vomiting, abdominal pain, urinary or bowel problem problems, melena, hematemesis, hemoptysis, hematochezia; states that he feels better with less R arm discomfort Review of Systems Review of Systems: Complete Review of Systems is as stated above, negative, or noncontributory. Physical Exam Physical Exam: General: A&Ox3. NAD. Skin: Considerable right upper extremity swelling and ecchymosis, right chest ecchymosis. HENT: Normocephalic. Atraumatic. Eyes: PER. Conjunctiva pink, sclera clear. Neck: No carotid bruits. No JVD. No HJR. Heart: S1S2; +prosthetic click. Lungs: Clear to auscultation. Abdomen: +BS. Soft. Nontender. No masses or organomegaly. Extremities: R arm bruising, no cyanosis Limited neurological examination is without focal deficits. Results & Data Vital Signs (Past 12 Hours) Vital Signs Temp Pulse Pulse Resp BP Pulse Ox O2 Del Method 10/20/24 08:00 94 H 10/20/24 07:10 36.8 C 89 20 106/66 93 Room Air 10/20/24 03:54 36.7 C 86 16 112/70 95 Room Air 10/19/24 23:14 37.7 C H 84 17 95/57 L 96 Room Air Laboratory Results Coagulation 10/20/24 Range/Units 07:20 PT 12.4 H (9.0-12.0) Seconds CBC 10/19/24 10/19/24 10/19/24 Range/Units 13:19 17:14 23:19 WBC (4.8-10.8) K/ul RBC (4.70-6.10) M/uL Hgb 6.8 L* 7.8 L 7.4 L (14.0-18.0) g/dl Hct 20.9 L* 24.3 L 22.5 L (42.0-52.0) % Plt Count (130-400) K/uL 10/20/24 Range/Units 07:20 WBC 8.55 (4.8-10.8) K/ul RBC 2.79 L (4.70-6.10) M/uL Hgb 7.3 L (14.0-18.0) g/dl Hct 22.0 L (42.0-52.0) % Plt Count 288 (130-400) K/uL Comprehensive Metabolic Panel 10/20/24 Range/Units 07:20 Sodium 136 (136-145) mmol/L Potassium 4.4 (3.5-5.1) mmol/L Chloride 107 (98-107) mmol/L Carbon Dioxide 27 (21-32) mmol/L BUN 20 (6-23) mg/dl Creatinine 0.95 D (0.6-1.4) mg/dl Glucose 118 H (70-99(Fasting)) mg/dl Calcium 8.4 L (8.6-10.3) mg/dl Intake and Output 10/19/24 10/20/24 10/20/24 22:59 06:59 14:59 Intake Total 1519.666 / 4320.582 1100 / 4320.582 Output Total 925 / 1400 475 / 1400 Balance 594.666 / 2920.582 625 / 2920.582 Intake: IV 1209.666 / 3500.582 1100 / 3500.582 PANTOprazole 40 mg In Dextrose 176.333 / 344.333 5% Mini-B 100 ml @ 8 MG/HR 20 mls/hr IV Q5H DORY Rx#:[id number] Piperacillin/Tazobactam 4.5 gm 100 / 200 100 / 200 In 100 ml @ 25 mls/hr IV Q8H DORY Rx#:[id number] Sodium Chloride 0.9% 1,000 ml @ 933.333 / 2856.249 1000 / 2856.249 125 mls/hr IV .Q8H DORY Rx#: [id number] Intake (Blood Product) Amt 310 / 620 Packed Cells, Leukoreduced 310 / 310 Unit [id number] Output: Urine 925 / 1400 475 / 1400 Other: Weight 116.7 kg Weight Measurement Method Built in [facility] Diagnostic Findings Laboratory Results WBC 8.55 K/ul (4.8-10.8) 10/20/24 07:20 RBC 2.79 M/uL (4.70-6.10) L 10/20/24 07:20 Hgb 7.3 g/dl (14.0-18.0) L 10/20/24 07:20 Hct 22.0 % (42.0-52.0) L 10/20/24 07:20 MCV 78.9 fL (80.0-100.0) L 10/20/24 07:20 MCH 26.2 pg (25.0-34.0) 10/20/24 07:20 MCHC 33.2 g/dL (32.0-36.0) 10/20/24 07:20 RDW Std Deviation 53.3 fL (36.4-46.3) H 10/20/24 07:20 RDW Coeff of Rubin 18.6 % (11.5-14.5) H 10/20/24 07:20 Plt Count 288 K/uL (130-400) 10/20/24 07:20 MPV 9.7 fL (9.4-12.4) 10/20/24 07:20 Immature Gran % (Auto) 0.6 % 10/19/24 06:41 Neut % (Auto) 64.6 % 10/19/24 06:41 Lymph % (Auto) 26.8 % 10/19/24 06:41 [place] % (Auto) 6.3 % 10/19/24 06:41 Eos % (Auto) 1.3 % 10/19/24 06:41 Baso % (Auto) 0.4 % 10/19/24 06:41 Neut # (Auto) 5.82 K/uL (1.40-6.50) 10/19/24 06:41 Lymph # (Auto) 2.42 K/uL (1.20-3.40) 10/19/24 06:41 [place] # (Auto) 0.57 K/uL (0.11-0.59) 10/19/24 06:41 Eos # (Auto) 0.12 K/uL (0.00-0.50) 10/19/24 06:41 Baso # (Auto) 0.04 K/uL (0.00-0.20) 10/19/24 06:41 Immature Gran # (Auto) 0.05 K/uL (0.01-0.20) 10/19/24 06:41 Polychromasia 1+ 10/19/24 06:41 Hypochromasia Present 10/18/24 19:08 Anisocytosis Present 10/18/24 19:08 Microcytosis Present 10/19/24 06:41 Ovalocytes 1+ 10/19/24 06:41 Acanthocytes (Spur) 1+ 10/18/24 19:08 PT 12.4 Seconds (9.0-12.0) H 10/20/24 07:20 INR 1.2 (0.9-1.1) H 10/20/24 07:20 APTT 104 Seconds (21-31) H* 10/18/24 21:03 PTT Ratio 3.9 10/18/24 21:03 Fibrinogen 357 mg/dl (184-400) 10/19/24 00:03 Heparin Anti-Xa, LM Wt < 0.10 IU/ML (< 0.10) 10/19/24 00:03 Sodium 136 mmol/L (136-145) 10/20/24 07:20 Potassium 4.4 mmol/L (3.5-5.1) 10/20/24 07:20 Chloride 107 mmol/L (98-107) 10/20/24 07:20 Carbon Dioxide 27 mmol/L (21-32) 10/20/24 07:20 Anion Gap 2 (3-11) L 10/20/24 07:20 BUN 20 mg/dl (6-23) 10/20/24 07:20 Creatinine 0.95 mg/dl (0.6-1.4) D 10/20/24 07:20 Est Cr Clr Drug Dosing 102.4 ml/min 10/20/24 07:20 eGFR 88.28 10/20/24 07:20 BUN/Creatinine Ratio 21.1 (10-20) H 10/20/24 07:20 Glucose 118 mg/dl (70-99(Fasting)) H 10/20/24 07:20 POC Glucose 122 mg/dl (70-99) H 10/20/24 05:51 Calcium 8.4 mg/dl (8.6-10.3) L 10/20/24 07:20 Phosphorus 1.9 mg/dl (2.5-4.9) L 10/20/24 07:20 Magnesium 1.8 mg/dl (1.7-2.4) 10/20/24 07:20 Iron 29 mcg/dl (35-175) L 10/18/24 19:08 TIBC 434 mcg/dl (250-450) 10/18/24 19:08 Transferrin 310 mg/dl (200-360) 10/18/24 19:08 Transferrin % Sat 7 % (20-50) L 10/18/24 19:08 Ferritin 34.2 ng/ml (8-388) 10/18/24 19:08 Total Bilirubin 0.7 mg/dl (0.2-1.0) 10/18/24 19:08 AST 24 U/L (13-39) 10/18/24 19:08 ALT 14 U/L (7-52) 10/18/24 19:08 Alkaline Phosphatase 55 U/L (34-104) 10/18/24 19:08 Troponin I High Sens 10.3 pg/ml (0-20) 10/18/24 19:08 B-Natriuretic Peptide 96 pg/ml (0-100) 10/18/24 19:08 Total Protein 6.6 gm/dl (6.0-8.3) 10/18/24 19:08 Albumin 3.6 gm/dl (3.4-5.0) 10/18/24 19:08 Globulin 3.0 gm/dl (2.5-4.0) 10/18/24 19:08 Albumin/Globulin Ratio 1.2 (0.9-2) 10/18/24 19:08 Urine Color Yellow 10/19/24 03:00 Urine Appearance Clear (Clear) 10/19/24 03:00 Urine pH 5.0 (4.5-7.5) 10/19/24 03:00 Ur Specific [place] > 1.045 (1.000-1.030) H 10/19/24 03:00 Urine Protein Negative (Negative) 10/19/24 03:00 Urine Glucose (UA) Negative (Negative) 10/19/24 03:00 Urine Ketones Negative (Negative) 10/19/24 03:00 Urine Blood 3+ (Negative) H 10/19/24 03:00 Urine Nitrite Negative (Negative) 10/19/24 03:00 Urine Bilirubin Negative (Negative) 10/19/24 03:00 Urine Urobilinogen Negative (Negative) 10/19/24 03:00 Ur Leukocyte Esterase 1+ (Negative) H 10/19/24 03:00 Urine WBC (Auto) 11-20 /hpf (0-5) H 10/19/24 03:00 Urine RBC (Auto) >20 /hpf (0-2) H 10/19/24 03:00 U Hyaline Cast (Auto) 6-10 /lpf (0-2) H 10/19/24 03:00 U Epithel Cells (Auto) 3-5 /hpf (0-2) H 10/19/24 03:00 Urine Bacteria (Auto) None Seen (None Seen) 10/19/24 03:00 Urine Comment 10/19/24 03:00 Blood Type A Positive 10/18/24 21:03 Blood Type Recheck A Positive 10/19/24 00:03 Antibody Screen NEGATIVE 10/18/24 21:03 Crossmatch See Detail 10/18/24 21:03 Impressions Abdomen/Pelvis CT 10/18/24 18:55 Exam(s): CT ABDOMEN + PELVIS With Contrast IV Amt: 93ML OPTI 320 EXAM: CT Abdomen and Pelvis With Intravenous Contrast CLINICAL HISTORY: Reason for exam: nausea, vomiting, dizzy. TECHNIQUE: Axial computed tomography images of the abdomen and pelvis with intravenous contrast. CTDI is 37.42 mGy and DLP is 1417.76 mGy-cm. Automated exposure control was utilized for the study. A dose lowering technique was utilized adhering to the principles of ALARA. CONTRAST: Patient received 93ML OPTI 320 of IV contrast COMPARISON: CT abdomen and pelvis without contrast May 10, 2024. FINDINGS: ABDOMEN: Liver: Unremarkable. No mass. Gallbladder and bile ducts: Cholecystectomy. No ductal dilation. Pancreas: Unremarkable. No mass. No ductal dilation. Spleen: Unremarkable. No splenomegaly. Adrenals: Unremarkable. No mass. Kidneys and ureters: 6-7mm calculus in the left kidney with overlying scarring. No hydronephrosis. No ureteral dilatation or ureteral calculus. A second stone seen in the left kidney on the prior scan is not present. This is. Stomach and bowel: Unremarkable. No obstruction. No mucosal thickening. PELVIS: Appendix: No findings to suggest acute appendicitis. Bladder: Unremarkable. No mass. ABDOMEN and PELVIS: Intraperitoneal space: Unremarkable. No free air. No significant fluid collection. Bones/joints: No acute findings. Soft tissues: Small umbilical hernia containing only fat. Vasculature: Unremarkable. No abdominal aortic aneurysm. Lymph nodes: Unremarkable. No enlarged lymph nodes. IMPRESSION: No acute findings in the abdomen or pelvis. Electronically signed by: Cali Collazo MD 10/18/24 23:28 PM Chest X-Ray 10/18/24 18:55 Exam(s): XR CXR 1 VIEW EXAM: XR Chest, 1 View CLINICAL HISTORY: Reason for exam: dizzy, fall. TECHNIQUE: Frontal view of the chest. COMPARISON: No relevant prior studies available. FINDINGS: Lungs: Unremarkable. No acute infiltration, atelectasis or mass. Pleural space: Unremarkable. No pneumothorax or pleural fluid. Heart: The heart appears enlarged; however, this is likely magnified by AP portable technique. Mediastinum: Unremarkable. Normal mediastinal contour. Bones/joints: Previous sternotomy. IMPRESSION: No acute findings in the chest. Electronically signed by: Cali Collazo MD 10/18/24 22:[address] 10/18/24 18:55 Exam(s): CT HEAD Without Contrast EXAM: CT Head Without Intravenous Contrast CLINICAL HISTORY: Reason for exam: dizzy, fall. TECHNIQUE: Axial computed tomography images of the head/brain without intravenous contrast. CTDI is 37.42 mGy and DLP is 624.41 mGy-cm. Automated exposure control was utilized for the study. A dose lowering technique was utilized adhering to the principles of ALARA. COMPARISON: No relevant prior studies available. FINDINGS: Brain: No acute intracranial hemorrhage, edema or abnormal mass-effect. Ventricles: Unremarkable. No ventriculomegaly. Bones/joints: Unremarkable. No acute fracture. Soft tissues: Unremarkable. Sinuses: Unremarkable as visualized. No acute sinusitis. Mastoid air cells: Unremarkable as visualized. No mastoid effusion. IMPRESSION: No acute abnormality. Electronically signed by: Cali Collazo MD 10/18/24 22:59 PM Venous Doppler Study 10/18/24 18:55 Exam(s): US VENOUS RIGHT UPPER EXTREMITY EXAM: US Duplex Right Upper Extremity Veins CLINICAL HISTORY: Reason for exam: pain, swelling, bruising. TECHNIQUE: Real-time duplex ultrasound scan of the right upper extremity veins integrating B-mode two-dimensional vascular structure, Doppler spectral analysis, color flow Doppler imaging and compression. COMPARISON: No relevant prior studies available. FINDINGS: Very limited study due to extensive edema. No venous thrombosis is identified in the right jugular vein or the veins of the right upper extremity; however, the axillary vein is not well seen. Complex masslike structure or collection in the medial upper right arm measuring 5.4 x 4.0 x 9.0 cm. This may represent a hematoma. This is not vascular. IMPRESSION: No thrombus identified; however, it is a limited exam, particularly in the visualization of the right axillary vein. Heterogeneous masslike structure or collection in the upper arm which does not appear very vascular. This may represent a hematoma. Electronically signed by: Cali Collazo MD 10/18/24 22:48 PM Upper Extremity CTA 10/18/24 23:06 EXAM: CT angio humerus RT wo/w con CLINICAL HISTORY: Right arm hematoma. inr 10. could be active bleeding. TECHNIQUE: CT angiography study of the right arm vessels with IV contrast was performed and multiple axial sections were obtained with coronal and sagittal reconstructions. 120 ml Optiray 320 was administered. One of the following dose reduction techniques was utilized for this exam: Automated exposure control, adjustment of the mA and/or kV according to patient size, and use of iterative reconstruction. One of these 3D techniques was utilized: Maximum Intensity Pixel (MIP), 3D Reconstructed Images, Volume Rendered Images, Surface Shaded Rendering. COMPARISON: None. FINDINGS: Vessels: Right subclavian, axillary, brachial, radial, and ulnar arteries are patent without evidence of stenosis, occlusion, dissection, or pseudoaneurysm. No active arterial contrast extravasation. Musculoskeletal: Hypodense intramuscular collection within the biceps muscle belly of the upper arm, measuring approximately 54 × 37 mm, with surrounding muscle edema. The collection demonstrates faint hyperdensities, measuring 38 HU pre-contrast and 62 HU post-contrast, findings suggestive of active bleeding, likely venous in origin. No acute fracture or destructive bony lesion. Soft tissues: Marked diffuse subcutaneous soft tissue edema involving the right upper arm, extending into adjacent fascial planes. No subcutaneous emphysema or foreign body. Other: Surrounding fat planes are partially obscured by edema. No abnormal lymphadenopathy identified in the scanned field. IMPRESSION: 1. Intramuscular hematoma within the right biceps muscle belly, with pre- to post-contrast enhancement (38 ? 62 HU), suggestive of active bleeding, likely venous in origin. 2. Marked diffuse subcutaneous soft tissue edema of the right upper arm. 3. No CT angiographic evidence of arterial injury, pseudoaneurysm, or active arterial contrast extravasation. Electronically signed by Addi Rico 10-19-2024 02:34 AM Medications Administered Home Medications Medication Instructions Recorded Confirmed Last Taken atorvastatin 40 mg tablet 40 mg PO DAILY 10/18/24 10/18/24 10/18/24 escitalopram oxalate 10 mg tablet 10 mg PO DAILY 10/18/24 10/18/24 10/18/24 fenofibrate micronized 134 mg 134 mg PO DAILY 10/18/24 10/18/24 10/18/24 capsule gabapentin 100 mg capsule 100 mg PO HS 10/18/24 10/18/24 10/17/24 lisinopril 20 mg tablet 20 mg PO DAILY 10/18/24 10/18/24 10/18/24 meclizine 25 mg tablet 25 mg PO BID PRN Dizziness 10/18/24 10/18/24 Unknown metformin 500 mg tablet 500 mg PO DAILY 10/18/24 10/18/24 10/18/24 metoprolol tartrate 50 mg tablet 25 mg PO BID 10/18/24 10/18/24 10/18/24 08:00 [id number] acid-vit 1 tab PO DAILY 10/18/24 10/18/24 10/18/24 K-lycop 400 mcg-20 mcg-370 mcg tablet (Men's 50 Plus Multivitamin) omeprazole 20 mg capsule,delayed 20 mg PO DAILYBB 10/18/24 10/18/24 10/18/24 release oxybutynin chloride 10 mg 10 mg PO DAILY 10/18/24 10/18/24 10/18/24 tablet,extended release 24 hr triamcinolone acetonide 0.1 % 1 applic topical BID PRN SKIN 10/18/24 10/18/24 Unknown topical cream IRRITATIONS warfarin 5 mg tablet 5 mg PO DAILY 10/18/24 10/18/24 10/18/24 Active Medications Generic Name Dose Route Start Last Admin Trade Name Freq PRN Reason Stop Dose Admin Atorvastatin Calcium 40 mg 10/19/24 09:00 10/20/24 08:01 Atorvastatin 40 Mg Tab PO 11/18/24 08:59 40 mg DAILY DORY Administration Escitalopram Oxalate 10 mg 10/19/24 09:00 10/20/24 08:01 Escitalopram Oxalate 10 Mg Tab PO 11/18/24 08:59 10 mg DAILY DORY Administration Fenofibrate 145 mg 10/19/24 09:00 10/20/24 08:00 Fenofibrate Nanocrystallized 145 Mg Tablet PO 11/18/24 08:59 145 mg DAILY DORY Administration Gabapentin 100 mg 10/19/24 21:00 10/19/24 21:11 Gabapentin 100 Mg Cap PO 11/18/24 20:59 100 mg HS DORY Administration Piperacillin Sod/Tazobactam Sod 4.5 gm in 100 mls @ 25 mls/hr 10/19/24 14:00 10/20/24 05:54 Zosyn IV 10/24/24 13:59 25 mls/hr Q8H DORY Administration Protocol Insulin Aspart 0 units 10/19/24 06:00 10/20/24 05:53 Insulin Aspart Per Unit Charge SC 11/18/24 05:59 Not Given Q6 DORY Metoprolol Tartrate 25 mg 10/19/24 09:00 10/20/24 08:00 Metoprolol Tartrate 25 Mg Tab PO 11/18/24 08:59 25 mg BID DORY Administration Multivitamins/Minerals 1 tab 10/19/24 09:00 10/20/24 08:00 Cerovite Adv Formula Tab PO 11/18/24 08:59 1 tab DAILY DORY Administration Oxybutynin Chloride 10 mg 10/19/24 09:00 10/20/24 08:00 Oxybutynin Chloride Xl 5 Mg Tabcr PO 11/18/24 08:59 10 mg DAILY DORY Administration Pantoprazole Sodium 40 mg 10/19/24 21:00 10/20/24 07:59 Pantoprazole 40 Mg Tab PO 11/18/24 20:59 40 mg BID DORY Administration PG Care Time/CCT Total # of Minutes Spent Total Time Spent with Patient: Total time spent is greater than 50% in coordination of care (as documented) at patient's floor/unit and/or counseling patient: Coding Level of Care Code 17987 SUB INP/OBS CARE 3/50MIN Diagnoses Traumatic hematoma of right upper arm S40.021A Upper GI bleeding K92.2 Symptomatic anemia D64.9 H/O mechanical aortic valve replacement Z95.2 Hx of mitral valve replacement with mechanical valve Z95.2 Nonobstructive atherosclerosis of coronary artery I25.10 Ascending aortic aneurysm I71.21 HTN (hypertension) I10 Dyslipidemia, goal LDL below 70 E78.5
[2024-10-20] MEDS: Heparin IV Adult Wt-Based Low-Dose *NO* INITIAL Bolus Protocol IV SCH (10:40)
[2024-10-20] MEDS: HEPARIN 25000 UNIT/500 ML D5W 25,000 UNITS/500 ML BAG IV SCH (10:41)
[2024-10-20 11:17] LABS: Immature Granulocytes # (auto) 0.04 K/uL (0.01-0.20); Immature Granulocytes % (auto) 0.5 %
[2024-10-20 11:37] LABS: Partial Thromboplastin Time 25 Seconds (21-31)
[2024-10-20 12:35] LABS: Hematocrit (blood only) 22.3 % (42.0-52.0); Hemoglobin 7.1 g/dl (14.0-18.0)
[2024-10-20] MEDS: WARFARIN SOD 3 MG TAB PO SCH (15:45)
[2024-10-20 17:24] LABS: Hematocrit (blood only) 25.5 % (42.0-52.0); Hemoglobin 8.2 g/dl (14.0-18.0)
[2024-10-20 17:45] LABS: ANTI-Xa, UFH(UnfractionatedHep 0.12 IU/ml (0.3-0.7)
[2024-10-20] MEDS: HEPARIN SOD (PORCINE) 1000 UNIT/ML IV ONE (20:19)
[2024-10-20] MEDS: MELATONIN 3 MG TAB PO PRN (21:20)
[2024-10-21 03:00] LABS: Hematocrit (blood only) 21.8 % (42.0-52.0); Hemoglobin 6.9 g/dl (14.0-18.0); Mean Corpuscular Hemoglobin 25.6 pg (25.0-34.0); Mean Corpuscular Volume 80.7 fL (80.0-100.0); Platelet Count 275 K/uL (130-400); RDW Standard Deviation 54.9 fL (36.4-46.3); Red Blood Count 2.70 M/uL (4.70-6.10); White Blood Count 6.63 K/ul (4.8-10.8)
[2024-10-21] MEDS ORDERED: SODIUM CHLORIDE 0.9% 100 ML IV PRN (03:04)
[2024-10-21 03:14] LABS: Anion Gap 4.0 (3-11); Blood Urea Nitrogen 17.0 mg/dl (6-23); Calcium 8.3 mg/dl (8.6-10.3); Carbon Dioxide 27.0 mmol/L (21-32); Chloride 105.0 mmol/L (98-107); Creatinine Clr Calc Pharmacy 106.9 ml/min; Glucose 110.0 mg/dl (70-99(Fasting)); Magnesium 1.7 mg/dl (1.7-2.4); Potassium 4.2 mmol/L (3.5-5.1); Sodium 136.0 mmol/L (136-145)
[2024-10-21 03:21] LABS: ANTI-Xa, UFH(UnfractionatedHep 0.46 IU/ml (0.3-0.7)
[2024-10-21 03:24] LABS: INR 1.4 (0.9-1.1); Prothrombin Time 15.1 Seconds (9.0-12.0)
[2024-10-21] MEDS: ACETAMINOPHEN 325 MG TAB PO ONE (03:42)
--- NOTE | 2024-10-21 09:10 | Hospitalist Progress Note ---
Date of Service October 21, 2024 Assessment & Plan (1) Symptomatic anemia: Plan: 64-year-old male with past medical history significant for type 2 diabetes, dyslipidemia, hypertriglyceridemia, paroxysmal atrial fibrillation, ascending aortic enlargement, hypertension, obesity, GERD, colon polyps, overactive bladder, status post aortic valve replacement, status post mitral valve replacement, general anxiety disorder, comes because of the dizziness and fall and rectal bleed and found to have anemia. Patient states he is feeling dizzy for last few days. [place] he [place] down to the right side. Did not hit his head. No loss of consciousness. Again he fell once in the bathroom, went down slowly. And today dizziness was worse which prompted him to come to the ER. He also has a bruise and swelling in his right arm from the fall. And also swelling in his right leg. Has pain in in the right leg and arm. Denies any chest pain or shortness of breath. No headache. No runny nose or sore throat. No cough. Afebrile. No nausea. No abdominal pain. Also having some blood in the stools that he thought it was from hemorrhoids. Denies any blood in the urine. Currently hemodynamics are okay. Symptomatic anemia Presents with dizziness and fall Hemoglobin 7.6 on admission, then down to 6.2 (10/19 AM) Hemoglobin was 12.8 on 05/10/2024 INR greater than 10 on admission Received IV vitamin K 10 mg and Kcentra --> INR down to 1.4 (8 AM) S/p 2 units of PRBC 10/20 - Hgb 7.3, stable from last evening at 7.4 R arm less edematous INR 1.2 - will start IV heparin 10/21 Hgb 6.9 overnight and 1 unit of pRBC given Awaiting AM CBC, heparin on hold since 4 am - plan to resume INR 1.[address] monitor hemodynamics CT head no acute findings. CT abdomen pelvis no acute findings Telemetry Right lower extremity swelling and right upper extremity swelling Since fall Doppler of LEs is negative CTA right upper ext active venous bleeding in biceps- d/w vascular surgery- to elevate upper extremity and monitor. If swelling becomes large to consult general surgery 10/19 R upper extremity edematous, pt reports he had some finger numbness when he presented here but now it feels better - will consult w/ gen. surgery further. Also discussed w/ orthop. surgery - no compartment syndrome. - cont. to closely monitor 10/20 R arm edema much improved today, feels better per pt Hgb stable, INR 1.2 - discussed w/ orthop. surg.- ok to start anticoagulation - will start IV heparin 10/21 heparin on hold since 4 am. hgb 6.9 overnight and received 1 unit of pRBC Edema worse than yesterday (but not worse compared to admission) Not clear if pt's right arm was elevated as pt found this AM sitting in the chair, with no pillow under his arm, discussed with the pt that support and elevation is important and provided pillows under his R arm. Communication order sent to nursing as well. Rectal bleed Anemia On Protonix drip Got vitamin K and Kcentra for elevated INR Coumadin on hold N.p.o., IV fluids getting two units prbc follow h and h Telemetry GI consulted - s/p EGD, per GI ok to start anticoagulation 10/21 Pt reports BMs brown no blood reported Diabetes Hold p.o. 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 valves, will need resume as soon as possible Cardiology consulted 10/20 Plan to start anticoag w/ IV heparin as above 10/21 heparin on hold since 4am, Hgb 6.9, received 1 unit of pRBC, plan to resume heparin, INR 1.4, received coumadin yesteday Mild nonobstructive CAD On cardiac cath 2016 Continue statin and metoprolol tartrate Hypertension Continue metoprolol with holding parameters. Hold lisinopril for now Hyperlipidemia and hypertriglyceridemia Continue atorvastatin and fenofibrate History of atrial fibrillation/flutter On metoprolol with hold parameters Coumadin initially on hold, resumed 10/20 GERD Cont. PPI Dilated aortic root and ascending aorta at 3.9 and 4.1 cm Follow-up Generalized anxiety disorder On Lexapro DVT prophylaxis SCDs /iv heparin as above Disposition Telemetry Full code. Admission and Anticipated Discharge Date Admission Date: October 18, 2024 Subjective Pt seen in follow up of symptomatic anemia, supratherap. INR (anticoag.for mech. valves), s/p fall, R arm swelling and CTA c/w active venous bleed Also w/ poss. GI bleed, on PPI (pt feels it's hemorrhoids and not significant). GI consulted - underwent EGD, per GI ok to start anticoagulation. Pt seen by vasc. surgery, gen. surg., and orthopedics yesterday to eval his arm. R arm edema, ecchymosis - yesterday arm less edematous. Pt reported feeling better overall, not as tense. IV heparin was started yesterday. Heparin on hold 4 am as Hgb 6.9, 1 unit of pRBC ordered and now finished. INR 1.4, pt received coumadin yesterday R arm again with more edema compared to yesterday. Unclear if pt had his R arm elevated. Currently he is sitting in chair , there is no pillow to support his R arm Awaiting repeat CBC, plan to resume IV heparin Denies any chest pain, shortness of breath. Denies abd. pain, NUNEZ. He is awake, alert, oriented, answers appropriately. Review of Systems Review of Systems: All systems reviewed & are unremarkable except as noted in Subjective Physical Exam Physical Exam: General- Not in acute distress Head- NC/AT Eyes- PERRL. Neck- supple, no JVD. Lungs- clear to auscultation no wheezing or crackles. Heart- regular rhythm Abdomen- normal bowel sounds, soft, nontender, no distension Extremities- right arm w/ edema, ecchymosis. Able to move fingers Neuro- alert, oriented PERRL, no facial palsy; no dysarthria; moves extremities Results & Data Results & Data Vital Signs (Past 12 Hours) Vital Signs Temp Pulse Pulse Pulse Resp BP BP 10/21/24 07:05 36.7 C 63 20 120/52 L 10/21/24 05:45 36.8 C 65 16 163/80 H 10/21/24 04:48 36.8 C 63 14 146/75 H 10/21/24 04:18 36.8 C 80 16 135/83 10/21/24 04:03 36.8 C 61 16 128/82 10/21/24 03:44 36.9 C 78 16 131/70 10/21/24 02:50 36.4 C L 86 16 109/70 10/20/24 22:34 37.3 C 70 18 104/66 Pulse Ox O2 Del Method 10/21/24 07:05 93 Room Air 10/21/24 05:45 94 10/21/24 04:48 95 10/21/24 04:18 96 10/21/24 04:03 96 10/21/24 03:44 95 10/21/24 02:50 94 Room Air 10/20/24 22:34 95 Room Air Laboratory Results 10/21/24 10/21/24 10/20/24 Range/Units 02:42 00:12 17:45 WBC 6.63 (4.8-10.8) K/ul RBC 2.70 L (4.70-6.10) M/uL Hgb 6.9 L* (14.0-18.0) g/dl Hct 21.8 L (42.0-52.0) % MCV 80.7 (80.0-100.0) fL MCH 25.6 (25.0-34.0) pg MCHC 31.7 L (32.0-36.0) g/dL RDW Std Deviation 54.9 H (36.4-46.3) fL RDW Coeff of Rubin 19.0 H (11.5-14.5) % Plt Count 275 (130-400) K/uL MPV 9.4 (9.4-12.4) fL Immature Gran % (Auto) % Neut % (Auto) % Lymph % (Auto) % [place] % (Auto) % Eos % (Auto) % Baso % (Auto) % Neut # (Auto) (1.40-6.50) K/uL Lymph # (Auto) (1.20-3.40) K/uL [place] # (Auto) (0.11-0.59) K/uL Eos # (Auto) (0.00-0.50) K/uL Baso # (Auto) (0.00-0.20) K/uL Immature Gran # (Auto) (0.01-0.20) K/uL PT 15.1 H (9.0-12.0) Seconds INR 1.4 H (0.9-1.1) APTT (21-31) Seconds PTT Ratio Heparin Anti-Xa, Unfract 0.46 (0.3-0.7) IU/ml Sodium 136 (136-145) mmol/L Potassium 4.2 (3.5-5.1) mmol/L Chloride 105 (98-107) mmol/L Carbon Dioxide 27 (21-32) mmol/L Anion Gap 4 (3-11) BUN 17 (6-23) mg/dl Creatinine 0.91 (0.6-1.4) mg/dl Est Cr Clr Drug Dosing 106.9 ml/min eGFR 92.95 BUN/Creatinine Ratio 18.7 (10-20) Glucose 110 H (70-99(Fasting)) mg/dl POC Glucose 136 H 157 H (70-99) mg/dl Calcium 8.3 L (8.6-10.3) mg/dl Phosphorus 2.6 (2.5-4.9) mg/dl Magnesium 1.7 (1.7-2.4) mg/dl Blood Type Antibody Screen Crossmatch 10/20/24 10/20/24 10/20/24 Range/Units 16:49 12:09 11:14 WBC (4.8-10.8) K/ul RBC (4.70-6.10) M/uL Hgb 8.2 L 7.1 L (14.0-18.0) g/dl Hct 25.5 L 22.3 L (42.0-52.0) % MCV (80.0-100.0) fL MCH (25.0-34.0) pg MCHC (32.0-36.0) g/dL RDW Std Deviation (36.4-46.3) fL RDW Coeff of Rubin (11.5-14.5) % Plt Count (130-400) K/uL MPV (9.4-12.4) fL Immature Gran % (Auto) % Neut % (Auto) % Lymph % (Auto) % [place] % (Auto) % Eos % (Auto) % Baso % (Auto) % Neut # (Auto) (1.40-6.50) K/uL Lymph # (Auto) (1.20-3.40) K/uL [place] # (Auto) (0.11-0.59) K/uL Eos # (Auto) (0.00-0.50) K/uL Baso # (Auto) (0.00-0.20) K/uL Immature Gran # (Auto) (0.01-0.20) K/uL PT (9.0-12.0) Seconds INR (0.9-1.1) APTT (21-31) Seconds PTT Ratio Heparin Anti-Xa, Unfract 0.12 L (0.3-0.7) IU/ml Sodium (136-145) mmol/L Potassium (3.5-5.1) mmol/L Chloride (98-107) mmol/L Carbon Dioxide (21-32) mmol/L Anion Gap (3-11) BUN (6-23) mg/dl Creatinine (0.6-1.4) mg/dl Est Cr Clr Drug Dosing ml/min eGFR BUN/Creatinine Ratio (10-20) Glucose (70-99(Fasting)) mg/dl POC Glucose 116 H (70-99) mg/dl Calcium (8.6-10.3) mg/dl Phosphorus (2.5-4.9) mg/dl Magnesium (1.7-2.4) mg/dl Blood Type Antibody Screen Crossmatch 10/20/24 10/18/24 Range/Units 07:20 21:03 WBC 8.55 (4.8-10.8) K/ul RBC 2.79 L (4.70-6.10) M/uL Hgb 7.3 L (14.0-18.0) g/dl Hct 22.0 L (42.0-52.0) % MCV 78.9 L (80.0-100.0) fL MCH 26.2 (25.0-34.0) pg MCHC 33.2 (32.0-36.0) g/dL RDW Std Deviation 53.3 H (36.4-46.3) fL RDW Coeff of Rubin 18.6 H (11.5-14.5) % Plt Count 288 (130-400) K/uL MPV 9.7 (9.4-12.4) fL Immature Gran % (Auto) 0.5 % Neut % (Auto) 62.5 % Lymph % (Auto) 24.9 % [place] % (Auto) 9.2 % Eos % (Auto) 2.2 % Baso % (Auto) 0.7 % Neut # (Auto) 5.33 (1.40-6.50) K/uL Lymph # (Auto) 2.12 (1.20-3.40) K/uL [place] # (Auto) 0.78 H (0.11-0.59) K/uL Eos # (Auto) 0.19 (0.00-0.50) K/uL Baso # (Auto) 0.06 (0.00-0.20) K/uL Immature Gran # (Auto) 0.04 (0.01-0.20) K/uL PT (9.0-12.0) Seconds INR (0.9-1.1) APTT 25 (21-31) Seconds PTT Ratio 0.9 Heparin Anti-Xa, Unfract (0.3-0.7) IU/ml Sodium (136-145) mmol/L Potassium (3.5-5.1) mmol/L Chloride (98-107) mmol/L Carbon Dioxide (21-32) mmol/L Anion Gap (3-11) BUN (6-23) mg/dl Creatinine (0.6-1.4) mg/dl Est Cr Clr Drug Dosing ml/min eGFR BUN/Creatinine Ratio (10-20) Glucose (70-99(Fasting)) mg/dl POC Glucose (70-99) mg/dl Calcium (8.6-10.3) mg/dl Phosphorus (2.5-4.9) mg/dl Magnesium (1.7-2.4) mg/dl Blood Type A Positive Antibody Screen NEGATIVE Crossmatch See Detail Medications Administered Current Inpatient Medications Atorvastatin Calcium (Atorvastatin 40 Mg Tab) 40 mg PO DAILY DORY Stop: 11/18/24 08:59 Last Admin: 10/21/24 08:49 Dose: 40 mg Dextrose (Dextrose 50% 50 Ml Syringe) 25 - 50 ml IV UD PRN; Protocol PRN Reason: Hypoglycemia Protocol Stop: 11/18/24 01:01 Escitalopram Oxalate (Escitalopram Oxalate 10 Mg Tab) 10 mg PO DAILY DORY Stop: 11/18/24 08:59 Last Admin: 10/21/24 08:49 Dose: 10 mg Fenofibrate (Fenofibrate Nanocrystallized 145 Mg Tablet) 145 mg PO DAILY [facility]ORY Stop: 11/18/24 08:59 Last Admin: 10/21/24 08:49 Dose: 145 mg Gabapentin (Gabapentin 100 Mg Cap) 100 mg PO HS DORY Stop: 11/18/24 20:59 Last Admin: 10/20/24 20:22 Dose: 100 mg Glucagon (Glucagon For Inj 1 Mg Vial) 1 mg SQ UD PRN; Protocol PRN Reason: Hypoglycemia Protocol Stop: 11/18/24 01:01 Glucose (Glucose 40% Gel 15 Gm Tube) 15 - 30 gm PO UD PRN; Protocol PRN Reason: Hypoglycemia Protocol Stop: 11/18/24 01:01 Glucose (Glucose 10 Tab/Tube) 4 - 8 tab PO UD PRN; Protocol PRN Reason: Hypoglycemia Protocol Stop: 11/18/24 01:01 Hydromorphone HCl (Hydromorphone Inj 0.5 Mg/0.5 Ml Syr) 0.25 mg IV Q3H PRN PRN Reason: Mod-Sev Pain (Scale 4-10) Stop: 11/02/24 01:01 Heparin Sodium/Dextrose (Heparin 53572 Unit/500 Ml D5w) 25,000 units in 500 mls @ 0 mls/hr IV .Q0M DORY; Protocol Stop: 11/19/24 09:44 Last Titration: 10/21/24 04:00 Dose: 0 units/hr, 0 mls/hr Sodium Chloride (Nss) 100 mls @ 15 mls/hr IV .Q6H40M PRN PRN Reason: For Transfusion Duration Stop: 10/21/24 11:04 Insulin Aspart (Insulin Aspart Per Unit Charge) 0 units SC Q6 DORY Stop: 11/18/24 05:59 Last Admin: 10/21/24 05:41 Dose: Not Given Meclizine HCl (Meclizine Hcl 25 Mg Tab) 25 mg PO BID PRN PRN Reason: Dizziness Stop: 11/18/24 01:01 Melatonin (Melatonin 3 Mg Tab) 3 mg PO HS PRN PRN Reason: Sleep Stop: 11/19/24 20:47 Last Admin: 10/20/24 21:20 Dose: 3 mg Metoprolol Tartrate (Metoprolol Tartrate 25 Mg Tab) 25 mg PO BID [facility] Stop: 11/18/24 08:59 Last Admin: 10/21/24 08:49 Dose: 25 mg Miscellaneous (Carbohydrates For Hypoglycemia ) 15 - 30 gm PO UD PRN PRN Reason: Hypoglycemia Protocol Stop: 11/18/24 01:01 Multivitamins/Minerals (Cerovite Adv Formula Tab) 1 tab PO DAILY [facility] Stop: 11/18/24 08:59 Last Admin: 10/21/24 08:48 Dose: 1 tab Nitroglycerin (Nitroglycerin Sl 0.4 Mg/Tab Tab) 0.4 mg SL Q5M PRN PRN Reason: Chest Pain Stop: 11/18/24 01:01 Oxybutynin Chloride (Oxybutynin Chloride Xl 5 Mg Tabcr) 10 mg PO DAILY [facility] Stop: 11/18/24 08:59 Last Admin: 10/21/24 08:49 Dose: 10 mg Pantoprazole Sodium (Pantoprazole 40 Mg Tab) 40 mg PO BID [facility] Stop: 11/18/24 20:59 Last Admin: 10/21/24 08:49 Dose: 40 mg Potassium Phosphate (Pot Phosphate Monobasic W/ Sod Tab) 1 tab PO QID [facility] Stop: 11/19/24 08:59 Last Admin: 10/21/24 08:48 Dose: 1 tab Warfarin Sodium (Warfarin Sod 3 Mg Tab) 3 mg PO DAILY@1600 [facility] Stop: 11/19/24 15:59 Last Admin: 10/20/24 15:45 Dose: 3 mg
--- NOTE | 2024-10-21 10:06 | Gastroenterology Progress Note ---
Date of Service October 21, 2024 Assessment & Plan (1) Hematochezia: Plan: 64 year old male with history of type 2 diabetes, dyslipidemia, hypertriglyceridemia, paroxysmal atrial fibrillation, ascending aortic enlargement, hypertension, obesity, GERD, colon polyps, overactive bladder, status post aortic valve replacement, status post mitral valve replacement, general anxiety disorder, admitted w/ report of rectal bleeding, fall, anemia in the setting of supratherapeutic INR S/P EGD evaluation (negative), CTAP (negative) and upper extremity CTA w/ intramuscular hematoma right biceps w/ contrast enhancement raising possibility of suggestive of active on 10/18/24. He was evaluated by vascular medicine, general surgery and orthopedic surgery Continue supportive GI measures No indication for repeat endoscopic evaluation Continue oral PPI therapy No GI contraindication to diet Recall GI as needed I spent a total of 40 minutes on the date of service in review of patient's record, and previously obtained information in person and appropriate medical visit, discussion and education of plan, with patient and/or caregiver, placing orders for tests/referral/procedures as medically necessary and documentation of pertinent clinical information in patient's medical records for their visit today. Admission and Anticipated Discharge Date Admission Date: October 18, 2024 Supervising Physician Co-Signing Physician Notes I saw and examined this patient with our nurse practitioner and agree with her a ssessment and plan. Patient denying any significant GI symptoms. No signs of overt GI blood loss to explain anemia. Endoscopy was unrevealing. Suspect blood loss related to his recent trauma and right arm hematoma. Continue to monitor hemoglobin hematocrit. If there is any indication if there is a GI cause for his anemia we will reassess him. Subjective Offers no GI concerns this AM. No abd pain. No nausea/vomiting. Tolerating PO intake. No further episodes of rectal bleeding. Suggests his stools are loose, brown. No black stools. HGB 6.9 --> 1 unit RBC --> pending EGD 2024: Normal examined duodenum. Gastritis, characterized by erythema. Biopsied.Erythematous mucosa in the gastric body. Biopsied. Z-line regular, 45 cm from the incisors. Review of Systems Review of Systems: All other findings negative except as noted in HPI. Physical Exam Gastrointestinal (Abdomen): normal bowel sounds, soft, nontender, no hepatosplenomegaly Results & Data Results & Data Vital Signs (Past 12 Hours) Vital Signs Temp Pulse Pulse Pulse Resp BP BP 10/21/24 09:39 10/21/24 09:28 64 10/21/24 07:05 98.1 F 63 20 120/52 L 10/21/24 05:45 98.2 F 65 16 163/80 H 10/21/24 04:48 98.2 F 63 14 146/75 H 10/21/24 04:18 98.2 F 80 16 135/83 10/21/24 04:03 98.2 F 61 16 128/82 10/21/24 03:44 98.4 F 78 16 131/70 10/21/24 02:50 97.5 F L 86 16 109/70 10/20/24 22:34 99.1 F 70 18 104/66 Pulse Ox O2 Del Method 10/21/24 09:39 Room Air 10/21/24 09:28 10/21/24 07:05 93 Room Air 10/21/24 05:45 94 10/21/24 04:48 95 10/21/24 04:18 96 10/21/24 04:03 96 10/21/24 03:44 95 10/21/24 02:50 94 Room Air 10/20/24 22:34 95 Room Air Laboratory Results 10/21/24 10/21/24 10/20/24 Range/Units 02:42 00:12 17:45 WBC 6.63 (4.8-10.8) K/ul RBC 2.70 L (4.70-6.10) M/uL Hgb 6.9 L* (14.0-18.0) g/dl Hct 21.8 L (42.0-52.0) % MCV 80.7 (80.0-100.0) fL MCH 25.6 (25.0-34.0) pg MCHC 31.7 L (32.0-36.0) g/dL RDW Std Deviation 54.9 H (36.4-46.3) fL RDW Coeff of Rubin 19.0 H (11.5-14.5) % Plt Count 275 (130-400) K/uL MPV 9.4 (9.4-12.4) fL Immature Gran % (Auto) % Neut % (Auto) % Lymph % (Auto) % [place] % (Auto) % Eos % (Auto) % Baso % (Auto) % Neut # (Auto) (1.40-6.50) K/uL Lymph # (Auto) (1.20-3.40) K/uL [place] # (Auto) (0.11-0.59) K/uL Eos # (Auto) (0.00-0.50) K/uL Baso # (Auto) (0.00-0.20) K/uL Immature Gran # (Auto) (0.01-0.20) K/uL PT 15.1 H (9.0-12.0) Seconds INR 1.4 H (0.9-1.1) APTT (21-31) Seconds PTT Ratio Heparin Anti-Xa, Unfract 0.46 (0.3-0.7) IU/ml Sodium 136 (136-145) mmol/L Potassium 4.2 (3.5-5.1) mmol/L Chloride 105 (98-107) mmol/L Carbon Dioxide 27 (21-32) mmol/L Anion Gap 4 (3-11) BUN 17 (6-23) mg/dl Creatinine 0.91 (0.6-1.4) mg/dl Est Cr Clr Drug Dosing 106.9 ml/min eGFR 92.95 BUN/Creatinine Ratio 18.7 (10-20) Glucose 110 H (70-99(Fasting)) mg/dl POC Glucose 136 H 157 H (70-99) mg/dl Calcium 8.3 L (8.6-10.3) mg/dl Phosphorus 2.6 (2.5-4.9) mg/dl Magnesium 1.7 (1.7-2.4) mg/dl Blood Type Antibody Screen Crossmatch 10/20/24 10/20/24 10/20/24 Range/Units 16:49 12:09 11:14 WBC (4.8-10.8) K/ul RBC (4.70-6.10) M/uL Hgb 8.2 L 7.1 L (14.0-18.0) g/dl Hct 25.5 L 22.3 L (42.0-52.0) % MCV (80.0-100.0) fL MCH (25.0-34.0) pg MCHC (32.0-36.0) g/dL RDW Std Deviation (36.4-46.3) fL RDW Coeff of Rubin (11.5-14.5) % Plt Count (130-400) K/uL MPV (9.4-12.4) fL Immature Gran % (Auto) % Neut % (Auto) % Lymph % (Auto) % [place] % (Auto) % Eos % (Auto) % Baso % (Auto) % Neut # (Auto) (1.40-6.50) K/uL Lymph # (Auto) (1.20-3.40) K/uL [place] # (Auto) (0.11-0.59) K/uL Eos # (Auto) (0.00-0.50) K/uL Baso # (Auto) (0.00-0.20) K/uL Immature Gran # (Auto) (0.01-0.20) K/uL PT (9.0-12.0) Seconds INR (0.9-1.1) APTT (21-31) Seconds PTT Ratio Heparin Anti-Xa, Unfract 0.12 L (0.3-0.7) IU/ml Sodium (136-145) mmol/L Potassium (3.5-5.1) mmol/L Chloride (98-107) mmol/L Carbon Dioxide (21-32) mmol/L Anion Gap (3-11) BUN (6-23) mg/dl Creatinine (0.6-1.4) mg/dl Est Cr Clr Drug Dosing ml/min eGFR BUN/Creatinine Ratio (10-20) Glucose (70-99(Fasting)) mg/dl POC Glucose 116 H (70-99) mg/dl Calcium (8.6-10.3) mg/dl Phosphorus (2.5-4.9) mg/dl Magnesium (1.7-2.4) mg/dl Blood Type Antibody Screen Crossmatch 10/20/24 10/18/24 Range/Units 07:20 21:03 WBC 8.55 (4.8-10.8) K/ul RBC 2.79 L (4.70-6.10) M/uL Hgb 7.3 L (14.0-18.0) g/dl Hct 22.0 L (42.0-52.0) % MCV 78.9 L (80.0-100.0) fL MCH 26.2 (25.0-34.0) pg MCHC 33.2 (32.0-36.0) g/dL RDW Std Deviation 53.3 H (36.4-46.3) fL RDW Coeff of Rubin 18.6 H (11.5-14.5) % Plt Count 288 (130-400) K/uL MPV 9.7 (9.4-12.4) fL Immature Gran % (Auto) 0.5 % Neut % (Auto) 62.5 % Lymph % (Auto) 24.9 % [place] % (Auto) 9.2 % Eos % (Auto) 2.2 % Baso % (Auto) 0.7 % Neut # (Auto) 5.33 (1.40-6.50) K/uL Lymph # (Auto) 2.12 (1.20-3.40) K/uL [place] # (Auto) 0.78 H (0.11-0.59) K/uL Eos # (Auto) 0.19 (0.00-0.50) K/uL Baso # (Auto) 0.06 (0.00-0.20) K/uL Immature Gran # (Auto) 0.04 (0.01-0.20) K/uL PT (9.0-12.0) Seconds INR (0.9-1.1) APTT 25 (21-31) Seconds PTT Ratio 0.9 Heparin Anti-Xa, Unfract (0.3-0.7) IU/ml Sodium (136-145) mmol/L Potassium (3.5-5.1) mmol/L Chloride (98-107) mmol/L Carbon Dioxide (21-32) mmol/L Anion Gap (3-11) BUN (6-23) mg/dl Creatinine (0.6-1.4) mg/dl Est Cr Clr Drug Dosing ml/min eGFR BUN/Creatinine Ratio (10-20) Glucose (70-99(Fasting)) mg/dl POC Glucose (70-99) mg/dl Calcium (8.6-10.3) mg/dl Phosphorus (2.5-4.9) mg/dl Magnesium (1.7-2.4) mg/dl Blood Type A Positive Antibody Screen NEGATIVE Crossmatch See Detail PG Care Time/CCT Total # of Minutes Spent Total Time Spent with Patient: Total time spent is greater than 50% in coordination of care (as documented) at patient's floor/unit and/or counseling patient: Coding Level of Care Code 13942 SUB INP/OBS CARE 2/35MIN Diagnoses Hematochezia K92.1
[2024-10-21] MEDS: FUROSEMIDE INJ 20 MG/2 ML VIAL IV ONE (11:11)
[2024-10-21] MEDS: NICOTINE 7 MG/24 HR TDSY TD SCH (11:13)
[2024-10-21] MEDS: MAGNESIUM OXIDE 400 MG TAB PO SCH (11:13)
[2024-10-21 11:58] LABS: Hematocrit (blood only) 27.5 % (42.0-52.0); Hemoglobin 9.1 g/dl (14.0-18.0); Mean Corpuscular Hemoglobin 26.8 pg (25.0-34.0); Mean Corpuscular Volume 80.9 fL (80.0-100.0); Platelet Count 297 K/uL (130-400); RDW Standard Deviation 54.2 fL (36.4-46.3); Red Blood Count 3.40 M/uL (4.70-6.10); White Blood Count 6.72 K/ul (4.8-10.8)
--- NOTE | 2024-10-21 13:22 | Psychiatric Consultation ---
Date of Consultation October 21, 2024 Impression / Recommendations Impression Diagnostically consistent with adjustment disorder with mixed anxiety and depressed mood in context of ongoing medical issues and nicotine withdrawal. Acute risk of self-harm is low given denial of SI. He would like to try an alternative medication for anxiety and depression. Given his need for chronic anticoagulation and current GI bleed discussed that mirtazapine would be preferred option or sertraline is considered a safer option than escitalopram. He'd like to try mirtazapine. Overall, I spent a total of 45 minutes with this case including review of chart records, review of labwork, review of EKG QTc, direct evaluation of the patient at bedside, counseling the patient, discussion of the patient with the Nurse and with the hospitalist provider, discussion with the psychiatric liason during clinical rounds and documentation in the electronic health record. (1) Hematochezia: (2) Hx of mitral valve replacement with mechanical valve: (3) Adjustment disorder with mixed anxiety and depressed mood: Plan -Decrease escitalopram to 5mg daily for 5 days then stop -Start mirtazapine 15mg HS -In the future if symptoms or worsen or mirtazapine is ineffective or not tolerated would start sertraline 50mg daily Psych History Identifying Data Mahesh is a 64-year-old male with past medical history significant for type 2 diabetes, dyslipidemia, hypertriglyceridemia, paroxysmal atrial fibrillation, ascending aortic enlargement, hypertension, obesity, GERD, colon polyps, overactive bladder, status post aortic valve replacement, status post mitral valve replacement, general anxiety disorder, comes because of the dizziness and fall and rectal bleed and found to have anemia admitted medically. psychiatry consulted for anxiety, depression. Chief Complaint "I feel a lot better". History of Present Illness Mahesh was admitted and is being treated for a GI bleed due to supratherapeutic INR. This morning he felt emotionally overwhelmed by all of his recent medical se tbacks and was wanting to leave A. Psychiatry was consulted and psych liason RN met with him. He responded well to processing things and felt "a lot better" after getting a nicotine patch (he smokes a lot at home) and meeting with his daughter. This afternoon tells me he feels a lot better, and that he has a new perspective after talking with his daughter. Discussed being in a difficult headspace this morning due to ongoing mounting medical issues but he feels "optimistic" again now. He denies any SI. He feels lexapro has never been very beneficial. he'd like to try mirtazapine. Allergies Allergy/AdvReac Type Severity Reaction Status Date / Time No Known Allergies Allergy Verified 10/18/24 19:28 Home Medications Medication Instructions Recorded Confirmed Type atorvastatin 40 mg tablet 40 mg PO DAILY 10/18/24 10/18/24 History escitalopram oxalate 10 mg tablet 10 mg PO DAILY 10/18/24 10/18/24 History fenofibrate micronized 134 mg 134 mg PO DAILY 10/18/24 10/18/24 History capsule gabapentin 100 mg capsule 100 mg PO HS 10/18/24 10/18/24 History lisinopril 20 mg tablet 20 mg PO DAILY 10/18/24 10/18/24 History meclizine 25 mg tablet 25 mg PO BID PRN Dizziness 10/18/24 10/18/24 History metformin 500 mg tablet 500 mg PO DAILY 10/18/24 10/18/24 History metoprolol tartrate 50 mg tablet 25 mg PO BID 10/18/24 10/18/24 History tfnanpuqjnyx-ile-wqhcd acid-vit 1 tab PO DAILY 10/18/24 10/18/24 History K-lycop 400 mcg-20 mcg-370 mcg tablet (Men's 50 Plus Multivitamin) omeprazole 20 mg capsule,delayed 20 mg PO DAILYBB 10/18/24 10/18/24 History release oxybutynin chloride 10 mg 10 mg PO DAILY 10/18/24 10/18/24 History tablet,extended release 24 hr triamcinolone acetonide 0.1 % 1 applic topical BID PRN SKIN 10/18/24 10/18/24 History topical cream IRRITATIONS warfarin 5 mg tablet 5 mg PO DAILY 10/18/24 10/18/24 History Patient History Medical History GERD (gastroesophageal reflux disease) H/O: HTN (hypertension) Cardiac valvulopathy Surgical History Heart valve replaced Social History Smoking Status: Former smoker Do You Dip or Chew Tobacco: No; Hx Alcohol Use: No Hx Substance Use: Yes Preferred Language: Libyan Communication Ability: Effective Lead Qa Analyst Required: No Beliefs That Will Affect Care: None Current Living Situation: Spouse Other Information That Helps Us Care for You: No Feels Safe at Home: Yes Safety Concerns: Feels Safe At This Time Assistive Devices: None Physical Exam Psychiatric: Orientation: alert and oriented x 3 Apperance: appropriately dressed and appropriately groomed Eye Contact: good eye contact Motor Behavior: no abnormal motor movements Speech: normal rate/rhythm/volume of speech Affect: euthymic affect Mood: no depressed mood and no anxious mood Thought Process: linear/logical thought process Thought Content: reality based without delusions Suicidal Thoughts: denies suicidal thoughts Homicidal Thoughts: denies homicidal thoughts Hallucinations: no auditory hallucinations and no visual hallucinations Cognition: recent memory grossly intact, remote memory grossly intact, attention grossly intact and language grossly intact Estimated Intelligence: consistent with education level Insight: + fair insight Judgment: + fair judgement Vital Signs (Past 24 Hours): Last Vital Signs Temp 36.3 C L 10/21/24 11:08 Pulse 58 L 10/21/24 11:08 Resp 22 10/21/24 11:08 BP 134/72 10/21/24 11:08 Pulse Ox 96 10/21/24 11:08 O2 Del Method Room Air 10/21/24 11:08 O2 Flow Rate 5 10/19/24 12:35 Results & Data (PSY) Medications Administered Atorvastatin Calcium (Atorvastatin 40 Mg Tab) 40 mg PO DAILY DORY Stop: 11/18/24 08:59 Last Admin: 10/21/24 08:49 Dose: 40 mg Documented By: Admin: 10/20/24 08:01 Dose: 40 mg Documented By: Admin: 10/19/24 09:23 Dose: 40 mg Documented By: EDU Escitalopram Oxalate (Escitalopram Oxalate 10 Mg Tab) 10 mg PO DAILY DORY Stop: 11/18/24 08:59 Last Admin: 10/21/24 08:49 Dose: 10 mg Documented By: Admin: 10/20/24 08:01 Dose: 10 mg Documented By: Admin: 10/19/24 09:23 Dose: 10 mg Documented By: EDU Fenofibrate (Fenofibrate Nanocrystallized 145 Mg Tablet) 145 mg PO DAILY DORY Stop: 11/18/24 08:59 Last Admin: 10/21/24 08:49 Dose: 145 mg Documented By: Admin: 10/20/24 08:00 Dose: 145 mg Documented By: Admin: 10/19/24 09:23 Dose: 145 mg Documented By: EDU Gabapentin (Gabapentin 100 Mg Cap) 100 mg PO HS [facility] Stop: 11/18/24 20:59 Last Admin: 10/20/24 20:22 Dose: 100 mg Documented By: gale Admin: 10/19/24 21:11 Dose: 100 mg Documented By: JONATHAN Heparin Sodium/Dextrose (Heparin 37638 Unit/500 Ml D5w) 25,000 units in 500 mls @ 24 mls/hr IV .[id number] [facility]; Protocol Stop: 11/19/24 09:44 Last Titration: 10/21/24 12:53 Dose: 1,200 units/hr, 24 mls/hr Documented By: SHARON Co-signed By: HARVEY Titration: 10/21/24 04:00 Dose: 0 units/hr, 0 mls/hr Documented By: gale Co-signed By: JONATHAN Titration: 10/20/24 20:18 Dose: 1,200 units/hr, 24 mls/hr Documented By: gale Co-signed By: JONATHAN Titration: 10/20/24 19:09 Dose: 1,000 units/hr, 20 mls/hr Documented By: EDU Co-signed By: JONATHAN Admin: 10/20/24 10:41 Dose: 1,000 units/hr, 20 mls/hr Documented By: EDU Co-signed By: KARSTEN Insulin Aspart (Insulin Aspart Per Unit Charge) 0 units SC Q6 [facility] Stop: 11/18/24 05:59 Last Admin: 10/21/24 12:12 Dose: Not Given Documented By: Admin: 10/21/24 05:41 Dose: Not Given Documented By: gale Admin: 10/21/24 00:17 Dose: Not Given Documented By: gale Co-signed By: JONATHAN Admin: 10/20/24 18:27 Dose: 1 units Documented By: EDU Co-signed By: CLEMENTE Admin: 10/20/24 11:53 Dose: Not Given Documented By: Admin: 10/20/24 05:53 Dose: Not Given Documented By: Admin: 10/19/24 23:53 Dose: Not Given Documented By: Admin: 10/19/24 18:27 Dose: Not Given Documented By: Admin: 10/19/24 13:29 Dose: Not Given Documented By: Admin: 10/19/24 06:20 Dose: Not Given Documented By: YOSI Magnesium Oxide (Magnesium Oxide 400 Mg Tab) 400 mg PO BID [facility] Stop: 11/20/24 09:14 Last Admin: 10/21/24 11:13 Dose: 400 mg Documented By: SHARON Melatonin (Melatonin 3 Mg Tab) 3 mg PO HS PRN PRN Reason: Sleep Stop: 11/19/24 20:47 Last Admin: 10/20/24 21:20 Dose: 3 mg Documented By: gale Metoprolol Tartrate (Metoprolol Tartrate 25 Mg Tab) 25 mg PO BID [facility] Stop: 11/18/24 08:59 Last Admin: 10/21/24 08:49 Dose: 25 mg Documented By: Admin: 10/20/24 20:22 Dose: 25 mg Documented By: gale Admin: 10/20/24 08:00 Dose: 25 mg Documented By: Admin: 10/19/24 21:12 Dose: 25 mg Documented By: Admin: 10/19/24 08:29 Dose: Not Given Documented By: EDU Multivitamins/Minerals (Cerovite Adv Formula Tab) 1 tab PO DAILY [facility]ORY Stop: 11/18/24 08:59 Last Admin: 10/21/24 08:48 Dose: 1 tab Documented By: Admin: 10/20/24 08:00 Dose: 1 tab Documented By: Admin: 10/19/24 09:23 Dose: 1 tab Documented By: EDU Nicotine (Nicotine 7 Mg/24 Hr Tdsy) 1 patch TD QAM [facility] Stop: 11/20/24 10:59 Last Admin: 10/21/24 11:13 Dose: 1 patch Documented By: SHARON Oxybutynin Chloride (Oxybutynin Chloride Xl 5 Mg Tabcr) 10 mg PO DAILY [facility] Stop: 11/18/24 08:59 Last Admin: 10/21/24 08:49 Dose: 10 mg Documented By: Admin: 10/20/24 08:00 Dose: 10 mg Documented By: Admin: 10/19/24 09:23 Dose: 10 mg Documented By: EDU Pantoprazole Sodium (Pantoprazole 40 Mg Tab) 40 mg PO BID [facility] Stop: 11/18/24 20:59 Last Admin: 10/21/24 08:49 Dose: 40 mg Documented By: Admin: 10/20/24 20:22 Dose: 40 mg Documented By: gale Admin: 10/20/24 07:59 Dose: 40 mg Documented By: Admin: 10/19/24 21:11 Dose: 40 mg Documented By: JONATHAN Potassium Phosphate (Pot Phosphate Monobasic W/ Sod Tab) 1 tab PO QID [facility] Stop: 11/19/24 08:59 Last Admin: 10/21/24 08:48 Dose: 1 tab Documented By: Admin: 10/20/24 20:23 Dose: 1 tab Documented By: gale Admin: 10/20/24 17:24 Dose: 1 tab Documented By: Admin: 10/20/24 14:12 Dose: 1 tab Documented By: Admin: 10/20/24 09:49 Dose: 1 tab Documented By: EDU Warfarin Sodium (Warfarin Sod 3 Mg Tab) 3 mg PO DAILY@1600 [facility] Stop: 11/19/24 15:59 Last Admin: 10/20/24 15:45 Dose: 3 mg Documented By: EDU Coding Level of Care Code 07815 IN/OBS CONSULT LVL 3,45M Diagnoses Hematochezia K92.1 Hx of mitral valve replacement with mechanical valve Z95.2 Adjustment disorder with mixed anxiety and depressed mood F43.23
[2024-10-21] MEDS: INSULIN ASPART PER UNIT CHARGE SC SCH (17:46)
[2024-10-21 18:16] LABS: Hematocrit (blood only) 31.4 % (42.0-52.0); Hemoglobin 10.0 g/dl (14.0-18.0)
[2024-10-21 20:28] LABS: ANTI-Xa, UFH(UnfractionatedHep 0.17 IU/ml (0.3-0.7)
[2024-10-21] MEDS ORDERED: INSULIN ASPART PER UNIT CHARGE SC SCH (21:00)
[2024-10-21] MEDS: HEPARIN SOD (PORCINE) 1000 UNIT/ML IV ONE (21:17)
[2024-10-22 03:47] LABS: Hematocrit (blood only) 24.4 % (42.0-52.0); Hemoglobin 8.0 g/dl (14.0-18.0); Mean Corpuscular Hemoglobin 26.7 pg (25.0-34.0); Mean Corpuscular Volume 81.3 fL (80.0-100.0); Platelet Count 270 K/uL (130-400); RDW Standard Deviation 53.7 fL (36.4-46.3); Red Blood Count 3.00 M/uL (4.70-6.10); White Blood Count 5.45 K/ul (4.8-10.8)
[2024-10-22 03:52] LABS: ANTI-Xa, UFH(UnfractionatedHep 0.57 IU/ml (0.3-0.7)
[2024-10-22 03:57] LABS: INR 1.8 (0.9-1.1); Prothrombin Time 18.2 Seconds (9.0-12.0)
[2024-10-22 04:02] LABS: Anion Gap 3.0 (3-11); Blood Urea Nitrogen 12.0 mg/dl (6-23); Calcium 8.7 mg/dl (8.6-10.3); Carbon Dioxide 27.0 mmol/L (21-32); Chloride 105.0 mmol/L (98-107); Creatinine Clr Calc Pharmacy 123.6 ml/min; Glucose 99.0 mg/dl (70-99(Fasting)); Magnesium 1.8 mg/dl (1.7-2.4); Potassium 4.1 mmol/L (3.5-5.1); Sodium 135.0 mmol/L (136-145)
--- NOTE | 2024-10-22 07:26 | Hospitalist Progress Note ---
Date of Service October 22, 2024 Assessment & Plan (1) Symptomatic anemia: Plan: 64-year-old male with past medical history significant for type 2 diabetes, dyslipidemia, hypertriglyceridemia, paroxysmal atrial fibrillation, ascending aortic enlargement, hypertension, obesity, GERD, colon polyps, overactive bladder, status post aortic valve replacement, status post mitral valve replacement, general anxiety disorder, comes because of the dizziness and fall and rectal bleed and found to have anemia. Patient states he is feeling dizzy for last few days. [place] in [place] he [place] down to the right side. Did not hit his head. No loss of consciousness. Again he fell once in the bathroom, went down slowly. And today dizziness was worse which prompted him to come to the ER. He also has a bruise and swelling in his right arm from the fall. And also swelling in his right leg. Has pain in in the right leg and arm. Denies any chest pain or shortness of breath. No headache. No runny nose or sore throat. No cough. Afebrile. No nausea. No abdominal pain. Also having some blood in the stools that he thought it was from hemorrhoids. Denies any blood in the urine. Currently hemodynamics are okay. Symptomatic anemia Presents with dizziness and fall Hemoglobin 7.6 on admission, then down to 6.2 (10/19 AM) Hemoglobin was 12.8 on 05/10/2024 INR greater than 10 on admission Received IV vitamin K 10 mg and Kcentra --> INR down to 1.4 (8 AM) S/p 2 units of PRBC 10/20 - Hgb 7.3, stable from last evening at 7.4 R arm less edematous INR 1.2 - will start IV heparin 10/21 Hgb 6.9 overnight and 1 unit of pRBC given Awaiting AM CBC, heparin on hold since 4 am - plan to resume INR 1.4 10/22 Hgb up but fluctuating, was 10, then 8 Repeat today pending On iv heparin, coumadin Close monitor hemodynamics CT head no acute findings. CT abdomen pelvis no acute findings Telemetry Right lower extremity swelling and right upper extremity swelling Since fall Doppler of LEs is negative CTA right upper ext active venous bleeding in biceps- d/w vascular surgery- to elevate upper extremity and monitor. If swelling becomes large to consult gen eral surgery 10/19 R upper extremity edematous, pt reports he had some finger numbness when he presented here but now it feels better - will consult w/ gen. surgery further. Also discussed w/ orthop. surgery - no compartment syndrome. - cont. to closely monitor 10/20 R arm edema much improved today, feels better per pt Hgb stable, INR 1.2 - discussed w/ orthop. surg.- ok to start anticoagulation - will start IV heparin 10/21 heparin on hold since 4 am. hgb 6.9 overnight and received 1 unit of pRBC Edema worse than yesterday (but not worse compared to admission) Not clear if pt's right arm was elevated as pt found this AM sitting in the chair, with no pillow under his arm, discussed with the pt that support and elevation is important and provided pillows under his R arm. Communication order sent to nursing as well. 10/22 edema seems somewhat improved. No numbness in fingers. Hgb improved but fluctuating was 10, 8 today AM level pending Pt cont. on IV heparin, coumadin Rectal bleed Anemia On Protonix drip Got vitamin K and Kcentra for elevated INR Coumadin on hold N.p.o., IV fluids getting two units prbc follow h and h Telemetry GI consulted - s/p EGD, per GI ok to start anticoagulation 10/21 Pt reports BMs brown no blood reported Diabetes Hold p.o. 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 [place] [facility]. valves, will need resume as soon as possible Cardiology consulted 10/20 Plan to start anticoag w/ IV heparin as above 10/21 heparin on hold since 4am, Hgb 6.9, received 1 unit of pRBC, plan to resume heparin, INR 1.4, received coumadin yesterday 10/22 INR 1.8, pt on iv heparin and coumadin 3 mg daily Mild nonobstructive CAD On cardiac cath 2016 Continue statin and metoprolol tartrate Hypertension Continue metoprolol with holding parameters. Hold lisinopril for now Hyperlipidemia and hypertriglyceridemia Continue atorvastatin and fenofibrate History of atrial fibrillation/flutter On metoprolol with hold parameters Coumadin initially on hold, resumed 10/20 GERD Cont. PPI Dilated aortic root and ascending aorta at 3.9 and 4.1 cm Follow-up Generalized anxiety disorder On Lexapro -> decreased dose per psychiatry, will plan to start mirtazapine DVT prophylaxis SCDs /iv heparin as above Disposition Telemetry Full code. Admission and Anticipated Discharge Date Admission Date: October 18, 2024 Subjective Pt seen in follow up of symptomatic anemia, supratherap. INR (anticoag.for mech. valves), s/p fall, R arm swelling and CTA c/w active venous bleed Also w/ poss. GI bleed, on PPI (pt feels it's hemorrhoids and not significant). GI consulted - underwent EGD, per GI ok to start anticoagulation. Pt seen by vasc. surgery, gen. surg., and orthopedics to eval his arm. R arm edema, ecchymosis - overall improved, not as tense. No numbness in fingers. Yesterday pt wanted to leave AMA, and seen psych. nicotine patch ordered. Pt feels much improved. cont. IV heparin, coumadine INR 1.8 today Denies any chest pain, shortness of breath. Denies abd. pain, NUNEZ. He is awake, alert, oriented, answers appropriately. Review of Systems Review of Systems: All systems reviewed & are unremarkable except as noted in Subjective Physical Exam Physical Exam: General- Not in acute distress Head- NC/AT Eyes- PERRL. Neck- supple, no JVD. Lungs- clear to auscultation no wheezing or crackles. Heart- regular rhythm Abdomen- normal bowel sounds, soft, nontender, no distension Extremities- right arm w/ edema, ecchymosis.edema improved. Able to move fingers Neuro- alert, oriented PERRL, no facial palsy; no dysarthria; moves extremities Results & Data Results & Data Vital Signs (Past 12 Hours) Vital Signs Temp Pulse Pulse Resp BP Pulse Ox Pulse Ox 10/22/24 03:06 36.5 C 62 18 150/67 H 94 10/22/24 01:00 95 10/21/24 22:11 36.8 C 75 18 145/83 H 96 O2 Del Method O2 Del Method 10/22/24 03:06 Room Air 10/22/24 01:00 Room Air 10/21/24 22:11 Room Air Laboratory Results 10/22/24 10/21/24 10/21/24 Range/Units 03:32 20:02 19:02 WBC 5.45 (4.8-10.8) K/ul RBC 3.00 L (4.70-6.10) M/uL Hgb 8.0 L (14.0-18.0) g/dl Hct 24.4 L (42.0-52.0) % MCV 81.3 (80.0-100.0) fL MCH 26.7 (25.0-34.0) pg MCHC 32.8 (32.0-36.0) g/dL RDW Std Deviation 53.7 H (36.4-46.3) fL RDW Coeff of Rubin 18.7 H (11.5-14.5) % Plt Count 270 (130-400) K/uL MPV 9.2 L (9.4-12.4) fL PT 18.2 H (9.0-12.0) Seconds INR 1.8 H (0.9-1.1) Heparin Anti-Xa, Unfract 0.57 0.17 L (0.3-0.7) IU/ml Sodium 135 L (136-145) mmol/L Potassium 4.1 (3.5-5.1) mmol/L Chloride 105 (98-107) mmol/L Carbon Dioxide 27 (21-32) mmol/L Anion Gap 3 (3-11) BUN 12 (6-23) mg/dl Creatinine 0.78 (0.6-1.4) mg/dl Est Cr Clr Drug Dosing 123.6 ml/min eGFR 98.35 BUN/Creatinine Ratio 15.4 (10-20) Glucose 99 (70-99(Fasting)) mg/dl POC Glucose 120 H (70-99) mg/dl Calcium 8.7 (8.6-10.3) mg/dl Magnesium 1.8 (1.7-2.4) mg/dl 10/21/24 10/21/24 10/21/24 Range/Units 17:52 16:11 11:24 WBC 6.72 (4.8-10.8) K/ul RBC 3.40 L (4.70-6.10) M/uL Hgb 10.0 L 9.1 L (14.0-18.0) g/dl Hct 31.4 L 27.5 L (42.0-52.0) % MCV 80.9 (80.0-100.0) fL MCH 26.8 (25.0-34.0) pg MCHC 33.1 (32.0-36.0) g/dL RDW Std Deviation 54.2 H (36.4-46.3) fL RDW Coeff of Rubin 18.6 H (11.5-14.5) % Plt Count 297 (130-400) K/uL MPV 9.7 (9.4-12.4) fL PT (9.0-12.0) Seconds INR (0.9-1.1) Heparin Anti-Xa, Unfract (0.3-0.7) IU/ml Sodium (136-145) mmol/L Potassium (3.5-5.1) mmol/L Chloride (98-107) mmol/L Carbon Dioxide (21-32) mmol/L Anion Gap (3-11) BUN (6-23) mg/dl Creatinine (0.6-1.4) mg/dl Est Cr Clr Drug Dosing ml/min eGFR BUN/Creatinine Ratio (10-20) Glucose (70-99(Fasting)) mg/dl POC Glucose 110 H (70-99) mg/dl Calcium (8.6-10.3) mg/dl Magnesium (1.7-2.4) mg/dl 10/21/24 Range/Units 11:20 WBC (4.8-10.8) K/ul RBC (4.70-6.10) M/uL Hgb (14.0-18.0) g/dl Hct (42.0-52.0) % MCV (80.0-100.0) fL MCH (25.0-34.0) pg MCHC (32.0-36.0) g/dL RDW Std Deviation (36.4-46.3) fL RDW Coeff of Rubin (11.5-14.5) % Plt Count (130-400) K/uL MPV (9.4-12.4) fL PT (9.0-12.0) Seconds INR (0.9-1.1) Heparin Anti-Xa, Unfract (0.3-0.7) IU/ml Sodium (136-145) mmol/L Potassium (3.5-5.1) mmol/L Chloride (98-107) mmol/L Carbon Dioxide (21-32) mmol/L Anion Gap (3-11) BUN (6-23) mg/dl Creatinine (0.6-1.4) mg/dl Est Cr Clr Drug Dosing ml/min eGFR BUN/Creatinine Ratio (10-20) Glucose (70-99(Fasting)) mg/dl POC Glucose 100 H (70-99) mg/dl Calcium (8.6-10.3) mg/dl Magnesium (1.7-2.4) mg/dl Medications Administered Current Inpatient Medications Atorvastatin Calcium (Atorvastatin 40 Mg Tab) 40 mg PO DAILY [facility] Stop: 11/18/24 08:59 Last Admin: 10/21/24 08:49 Dose: 40 mg Dextrose (Dextrose 50% 50 Ml Syringe) 25 - 50 ml IV UD PRN; Protocol PRN Reason: Hypoglycemia Protocol Stop: 11/18/24 01:01 Escitalopram Oxalate (Escitalopram Oxalate 10 Mg Tab) 5 mg PO DAILY [facility] Stop: 11/21/24 08:59 Fenofibrate (Fenofibrate Nanocrystallized 145 Mg Tablet) 145 mg PO DAILY [facility] Stop: 11/18/24 08:59 Last Admin: 10/21/24 08:49 Dose: 145 mg Gabapentin (Gabapentin 100 Mg Cap) 100 mg PO HS [facility] Stop: 11/18/24 20:59 Last Admin: 10/21/24 21:19 Dose: 100 mg Glucagon (Glucagon For Inj 1 Mg Vial) 1 mg SQ UD PRN; Protocol PRN Reason: Hypoglycemia Protocol Stop: 11/18/24 01:01 Glucose (Glucose 40% Gel 15 Gm Tube) 15 - 30 gm PO UD PRN; Protocol PRN Reason: Hypoglycemia Protocol Stop: 11/18/24 01:01 Glucose (Glucose 10 Tab/Tube) 4 - 8 tab PO UD PRN; Protocol PRN Reason: Hypoglycemia Protocol Stop: 11/18/24 01:01 Hydromorphone HCl (Hydromorphone Inj 0.5 Mg/0.5 Ml Syr) 0.25 mg IV Q3H PRN PRN Reason: Mod-Sev Pain (Scale 4-10) Stop: 11/02/24 01:01 Heparin Sodium/Dextrose (Heparin 94807 Unit/500 Ml D5w) 25,000 units in 500 mls @ 28 mls/hr IV .[id number] [facility]; Protocol Stop: 11/19/24 09:44 Last Titration: 10/22/24 06:48 Dose: 1,400 units/hr, 28 mls/hr Insulin Aspart (Insulin Aspart Per Unit Charge) 0 units SC ACHS [facility] Stop: 11/18/24 05:59 Last Admin: 10/21/24 21:20 Dose: Not Given Magnesium Oxide (Magnesium Oxide 400 Mg Tab) 400 mg PO BID [facility] Stop: 11/20/24 09:14 Last Admin: 10/21/24 21:21 Dose: 400 mg Meclizine HCl (Meclizine Hcl 25 Mg Tab) 25 mg PO BID PRN PRN Reason: Dizziness Stop: 11/18/24 01:01 Melatonin (Melatonin 3 Mg Tab) 3 mg PO HS PRN PRN Reason: Sleep Stop: 11/19/24 20:47 Last Admin: 10/21/24 21:22 Dose: 3 mg Metoprolol Tartrate (Metoprolol Tartrate 25 Mg Tab) 25 mg PO BID [facility] Stop: 11/18/24 08:59 Last Admin: 10/21/24 21:21 Dose: 25 mg Miscellaneous (Carbohydrates For Hypoglycemia ) 15 - 30 gm PO UD PRN PRN Reason: Hypoglycemia Protocol Stop: 11/18/24 01:01 Miscellaneous (Remove Nicoderm Patch) 1 each N/A DAILY@0859 [facility] Stop: 11/21/24 08:58 Multivitamins/Minerals (Cerovite Adv Formula Tab) 1 tab PO DAILY [facility] Stop: 11/18/24 08:59 Last Admin: 10/21/24 08:48 Dose: 1 tab Nicotine (Nicotine 7 Mg/24 Hr Tdsy) 1 patch TD QAM [facility] Stop: 11/20/24 10:59 Last Admin: 10/21/24 11:13 Dose: 1 patch Nitroglycerin (Nitroglycerin Sl 0.4 Mg/Tab Tab) 0.4 mg SL Q5M PRN PRN Reason: Chest Pain Stop: 11/18/24 01:01 Oxybutynin Chloride (Oxybutynin Chloride Xl 5 Mg Tabcr) 10 mg PO DAILY [facility] Stop: 11/18/24 08:59 Last Admin: 10/21/24 08:49 Dose: 10 mg Pantoprazole Sodium (Pantoprazole 40 Mg Tab) 40 mg PO BID [facility] Stop: 11/18/24 20:59 Last Admin: 10/21/24 21:21 Dose: 40 mg Potassium Phosphate (Pot Phosphate Monobasic W/ Sod Tab) 1 tab PO QID [facility] Stop: 11/19/24 08:59 Last Admin: 10/21/24 08:48 Dose: 1 tab Warfarin Sodium (Warfarin Sod 3 Mg Tab) 3 mg PO DAILY@1600 [facility] Stop: 11/19/24 15:59 Last Admin: 10/21/24 17:09 Dose: 3 mg
[2024-10-22] MEDS: ESCITALOPRAM OXALATE 10 MG TAB PO SCH (07:46)
[2024-10-22] MEDS: REMOVE NICODERM PATCH SCH (07:46)
[2024-10-22] MEDS: FUROSEMIDE INJ 20 MG/2 ML VIAL IV ONE ×2 (08:41→21:19)
[2024-10-22 09:04] LABS: Hematocrit (blood only) 28.1 % (42.0-52.0); Hemoglobin 9.0 g/dl (14.0-18.0)
[2024-10-22 18:28] LABS: Hematocrit (blood only) 31.1 % (42.0-52.0); Hemoglobin 9.9 g/dl (14.0-18.0)
[2024-10-22] MEDS: POTASSIUM CHLORIDE CRTAB 20 MEQ TABCR PO STA (21:19)
[2024-10-23 05:50] LABS: Hematocrit (blood only) 26.1 % (42.0-52.0); Hemoglobin 8.3 g/dl (14.0-18.0); Mean Corpuscular Hemoglobin 26.1 pg (25.0-34.0); Mean Corpuscular Volume 82.1 fL (80.0-100.0); Platelet Count 310 K/uL (130-400); RDW Standard Deviation 55.8 fL (36.4-46.3); Red Blood Count 3.18 M/uL (4.70-6.10); White Blood Count 3.96 K/ul (4.8-10.8)
[2024-10-23 06:07] LABS: Anion Gap 6.0 (3-11); Blood Urea Nitrogen 11.0 mg/dl (6-23); Calcium 8.8 mg/dl (8.6-10.3); Carbon Dioxide 25.0 mmol/L (21-32); Chloride 104.0 mmol/L (98-107); Creatinine Clr Calc Pharmacy 114.5 ml/min; Glucose 99.0 mg/dl (70-99(Fasting)); Magnesium 1.8 mg/dl (1.7-2.4); Potassium 4.2 mmol/L (3.5-5.1); Sodium 135.0 mmol/L (136-145)
[2024-10-23 06:14] LABS: ANTI-Xa, UFH(UnfractionatedHep 0.30 IU/ml (0.3-0.7)
[2024-10-23 06:22] LABS: INR 1.8 (0.9-1.1); Prothrombin Time 19.0 Seconds (9.0-12.0)
--- NOTE | 2024-10-23 16:12 | Hospitalist Progress Note ---
Date of Service October 23, 2024 Assessment & Plan (1) Symptomatic anemia: Plan: 64-year-old male with past medical history significant for type 2 diabetes, dyslipidemia, hypertriglyceridemia, paroxysmal atrial fibrillation, ascending aortic enlargement, hypertension, obesity, GERD, colon polyps, overactive bladder, status post aortic valve replacement, status post mitral valve replacement, general anxiety disorder, comes because of the dizziness and fall and rectal bleed and found to have anemia. Patient states he is feeling dizzy for last few days. [place] in [place] he [place] down to the right side. Did not hit his head. No loss of consciousness. Again he fell once in the bathroom, went down slowly. And today dizziness was worse which prompted him to come to the ER. He also has a bruise and swelling in his right arm from the fall. And also swelling in his right leg. Has pain in in the right leg and arm. Denies any chest pain or shortness of breath. No headache. No runny nose or sore throat. No cough. Afebrile. No nausea. No abdominal pain. Also having some blood in the stools that he thought it was from hemorrhoids. Denies any blood in the urine. Currently hemodynamics are okay. Symptomatic anemia Presents with dizziness and fall Hemoglobin 7.6 on admission, then down to 6.2 (8 AM) Hemoglobin was 12.8 on 05/10/2024 INR greater than 10 on admission Received IV vitamin K 10 mg and Kcentra --> INR down to 1.4 (8/31 AM) S/p 2 units of PRBC 9/ - Hgb 7.3, stable from last evening at 7.4 R arm less edematous INR 1.2 - will start IV heparin 9/2 Hgb 6.9 overnight and 1 unit of pRBC given Awaiting AM CBC, heparin on hold since 4 am - plan to resume INR 1.4 9/3 Hgb up but fluctuating, was 10, then 8 Repeat today pending On iv heparin, coumadin 9/4 Hg 8.3, repeat tomorrow INR 1.8, continue coumadin + heparin Close monitor hemodynamics CT head no acute findings. CT abdomen pelvis no acute findings Telemetry Right lower extremity swelling and right upper extremity swelling Since fall Doppler of LEs is negative CTA right upper ext active venous bleeding in biceps- d/w vascular surgery- to elevate upper extremity and monitor. If swelling becomes large to consult general surgery 10/19 R upper extremity edematous, pt reports he had some finger numbness when he presented here but now it feels better - will consult w/ gen. surgery further. Also discussed w/ orthop. surgery - no compartment syndrome. - cont. to closely monitor 10/20 R arm edema much improved today, feels better per pt Hgb stable, INR 1.2 - discussed w/ orthop. surg.- ok to start anticoagulation - will start IV heparin 10/21 heparin on hold since 4 am. hgb 6.9 overnight and received 1 unit of pRBC Edema worse than yesterday (but not worse compared to admission) Not clear if pt's right arm was elevated as pt found this AM sitting in the chair, with no pillow under his arm, discussed with the pt that support and elevation is important and provided pillows under his R arm. Communication order sent to nursing as well. 10/22 edema seems somewhat improved. No numbness in fingers. Hgb improved but fluctuating was 10, 8 today AM level pending Pt cont. on IV heparin, coumadin 10/23 improving Rectal bleed Anemia On Protonix drip Got vitamin K and Kcentra for elevated INR Coumadin on hold N.p.o., IV fluids getting two units prbc follow h and h Telemetry GI consulted - s/p EGD, per GI ok to start anticoagulation 10/21 Pt reports BMs brown no blood reported 10/23 no signs of GI bleed Diabetes Hold p.o. 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 valves, will need resume as soon as possible Cardiology consulted 10/20 Plan to start anticoag w/ IV heparin as above 10/21 heparin on hold since 4am, Hgb 6.9, received 1 unit of pRBC, plan to resume heparin, INR 1.4, received coumadin yesterday 10/22 INR 1.8, pt on iv heparin and coumadin 3 mg daily 10/23 INR 1.8, increase coumadin Mild nonobstructive CAD On cardiac cath 2016 Continue statin and metoprolol tartrate Hypertension Continue metoprolol with holding parameters. Hold lisinopril for now Hyperlipidemia and hypertriglyceridemia Continue atorvastatin and fenofibrate History of atrial fibrillation/flutter On metoprolol with hold parameters Coumadin initially on hold, resumed 10/20 GERD Cont. PPI Dilated aortic root and ascending aorta at 3.9 and 4.1 cm Follow-up Generalized anxiety disorder On Lexapro -> decreased dose per psychiatry, will plan to start mirtazapine DVT prophylaxis SCDs /iv heparin as above Disposition Telemetry Full code. Admission and Anticipated Discharge Date Admission Date: October 18, 2024 Subjective seen resting in bed, comfortable states he feels better overall no chest pain, dyspnea, palpitations, dizziness no melena/hematochezia no other symptoms Review of Systems Review of Systems: all noted and negative except for above Physical Exam Physical Exam: General- oriented x 3, not in distress, speaks in sentences with no effort or accessory muscle use Eyes- anicteric Neck- no JVD Lungs- clear breath sounds bilaterally, no rales/wheezes Heart- normal rate, regular rhythm; no murmurs Abdomen- normal bowel sounds, nondistended, soft, no tenderness Extremities- mild edema RU and RL extremity big area of hematoma RU extremity Neuro- alert, oriented x 3; no gross focal neurologic deficits Skin- warm & dry Results & Data Results & Data Vital Signs (Past 12 Hours) Vital Signs Temp Pulse Pulse Resp BP Pulse Ox O2 Del Method 10/23/24 14:58 36.7 C 64 18 165/77 H 98 Room Air 10/23/24 11:03 36.7 C 62 18 134/67 97 Room Air 10/23/24 08:00 64 10/23/24 07:27 36.6 C 69 20 181/83 H 95 Room Air all noted and reviewed including below
[2024-10-23] MEDS: WARFARIN SOD 6 MG TAB PO SCH (16:13)
[2024-10-24 05:34] LABS: Hematocrit (blood only) 29.9 % (42.0-52.0); Hemoglobin 9.4 g/dl (14.0-18.0); Immature Granulocytes # (auto) 0.02 K/uL (0.01-0.20); Immature Granulocytes % (auto) 0.4 %; Mean Corpuscular Hemoglobin 26.2 pg (25.0-34.0); Mean Corpuscular Volume 83.3 fL (80.0-100.0); Platelet Count 337 K/uL (130-400); RDW Standard Deviation 58.2 fL (36.4-46.3); Red Blood Count 3.59 M/uL (4.70-6.10); White Blood Count 4.61 K/ul (4.8-10.8)
[2024-10-24 05:37] LABS: ANTI-Xa, UFH(UnfractionatedHep 0.31 IU/ml (0.3-0.7)
[2024-10-24 05:49] LABS: Anion Gap 3.0 (3-11); Blood Urea Nitrogen 11.0 mg/dl (6-23); Calcium 9.1 mg/dl (8.6-10.3); Carbon Dioxide 26.0 mmol/L (21-32); Chloride 105.0 mmol/L (98-107); Creatinine Clr Calc Pharmacy 106.8 ml/min; Glucose 96.0 mg/dl (70-99(Fasting)); Potassium 4.3 mmol/L (3.5-5.1); Sodium 134.0 mmol/L (136-145)
[2024-10-24 05:50] LABS: INR 2.1 (0.9-1.1); Prothrombin Time 21.4 Seconds (9.0-12.0)
[2024-10-24 06:04] LABS: Anisocytosis Present; Ovalocytes 1+; Polychromasia 1+
[2024-10-24] MEDS: ENOXAPARIN INJ 120 MG/0.8 ML SYR SQ SCH (08:38)
--- NOTE | 2024-10-24 15:07 | Discharge Summary ---
Discharge Summary Date of Service October 24, 2024 delayed entry date of service noted above Principal Dx & Hospital Course #1 = Principal Diagnosis (1) Symptomatic anemia: 64-year-old male with past medical history significant for type 2 diabetes, dyslipidemia, hypertriglyceridemia, paroxysmal atrial fibrillation, ascending aortic enlargement, hypertension, obesity, GERD, colon polyps, overactive bladder, status post aortic valve replacement, status post mitral valve replacement, general anxiety disorder, comes because of the dizziness and fall and rectal bleed and found to have anemia. Patient states he is feeling dizzy for last few days. Last Sunday in the [place] he fell down to the right side. Did not hit his head. No loss of consciousness. Again he fell once in the bathroom, went down slowly. And today dizziness was worse which prompted him to come to the ER. He also has a bruise and swelling in his right arm from the fall. And also swelling in his right leg. Has pain in in the right leg and arm. Denies any chest pain or shortness of breath. No headache. No runny nose or sore throat. No cough. Afebrile. No nausea. No abdominal pain. Also having some blood in the stools that he thought it was from hemorrhoids. Denies any blood in the urine. Currently hemodynamics are okay. Symptomatic anemia likely from Hematoma, s/p Fall Presents with dizziness and fall Hemoglobin 7.6 on admission, then down to 6.2 (10/19 AM) Hemoglobin was 12.8 on 05/10/2024 INR greater than 10 on admission Received IV vitamin K 10 mg and Kcentra --> INR down to 1.4 (8 AM) S/p [address] head no acute findings. CT abdomen pelvis no acute findings 10/20 - Hgb 7.3, stable from last evening at 7.4 R arm less edematous INR 1.2 - will start IV heparin 9/2 Hgb 6.9 overnight and 1 unit of pRBC given Awaiting AM CBC, heparin on hold since 4 am - plan to resume INR 1.4 9/3 Hgb up but fluctuating, was 10, then 8 Repeat today pending On iv heparin, coumadin 9/5 Hg stable around 8 INR 2.1 Continue with Coumadin plus Lovenox bridge INR check Sunday Right lower extremity swelling and right upper extremity swelling Since fall Doppler of LEs is negative CTA right upper ext active venous bleeding in biceps- d/w vascular surgery- to elevate upper extremity and monitor. If swelling becomes large to consult general surgery 10/19 R upper extremity edematous, pt reports he had some finger numbness when he presented here but now it feels better - will consult w/ gen. surgery further. Also discussed w/ orthop. surgery - no compartment syndrome. - cont. to closely monitor 10/20 R arm edema much improved today, feels better per pt Hgb stable, INR 1.2 - discussed w/ orthop. surg.- ok to start anticoagulation - will start IV heparin 10/21 heparin on hold since 4 am. hgb 6.9 overnight and received 1 unit of pRBC Edema worse than yesterday (but not worse compared to admission) Not clear if pt's right arm was elevated as pt found this AM sitting in the chair, with no pillow under his arm, discussed with the pt that support and elevation is important and provided pillows under his R arm. Communication order sent to nursing as well. 10/22 edema seems somewhat improved. No numbness in fingers. Hgb improved but fluctuating was 10, 8 today AM level pending Pt cont. on IV heparin, coumadin 10/24 continues to improve Rectal bleed Anemia On Protonix drip Got vitamin K and Kcentra for elevated INR Coumadin on hold N.p.o., IV fluids getting two units prbc follow h and h Telemetry GI consulted - s/p EGD, per GI ok to start anticoagulation Impression: - Normal examined duodenum. - Gastritis, characterized by erythema. Biopsied. - Erythematous mucosa in the gastric body. Biopsied. - Z-line regular, 45 cm from the incisors. 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 valves, will need resume as soon as possible Cardiology consulted 10/20 Plan to start anticoag w/ IV heparin as above 10/21 heparin on hold since 4am, Hgb 6.9, received 1 unit of pRBC, plan to resume heparin, INR 1.4, received coumadin yesterday 10/22 INR 1.8, pt on iv heparin and coumadin 3 mg daily 10/23 INR 1.8, increase coumadin 10/24 Hg stable around 8 INR 2.1 Continue with Coumadin plus Lovenox bridge INR check Sunday Dilated aortic root and ascending aorta at 3.9 and 4.1 cm Follow-up as outpatient Mild nonobstructive CAD On cardiac cath 2016 Continue statin and metoprolol tartrate Hypertension Continue metoprolol and Lisinopril Hyperlipidemia and hypertriglyceridemia Continue atorvastatin and fenofibrate History of atrial fibrillation/flutter On metoprolol with hold parameters Coumadin initially on hold, resumed 10/20 GERD Cont. PPI Generalized anxiety disorder On Lexapro -> decreased dose per psychiatry, will plan to start mirtazapine DVT prophylaxis SCDs /iv heparin as above PCP ff up in 1 week Notes For Next Care Provider Medication Changes From Visit per med rec Admission HPI Per Admitting Provider 64-year-old male with past medical history significant for type 2 diabetes, dyslipidemia, hypertriglyceridemia, paroxysmal atrial fibrillation, ascending aortic enlargement, hypertension, obesity, GERD, colon polyps, overactive bladder, status post aortic valve replacement, status post mitral valve replacement, general anxiety disorder, comes because of the dizziness and fall and rectal bleed and found to have anemia. Patient states he is feeling dizzy for last few days. Last Sunday in the camp he fell down to the right side. Did not hit his head. No loss of consciousness. Again he fell once in the bathroom, went down slowly. And today dizziness was worse which prompted him to come to the ER. He also has a bruise and swelling in his right arm from the f all. And also swelling in his right leg. Has pain in in the right leg and arm. Denies any chest pain or shortness of breath. No headache. No runny nose or sore throat. No cough. Afebrile. No nausea. No abdominal pain. Also having some blood in the stools that he thought it was from hemorrhoids. Denies any blood in the urine. Currently hemodynamics are okay. Past medical history. As mentioned above Past surgical history. Cardiac cath. Colonoscopy with biopsy. Cystoscopy. Lithotripsy. Laparoscopic cholecystectomy. Removal of kidney stone. Bilateral cataracts. Replacement aortic valve. Mitral valve replacement. Social history. . Quit smoking 2012. Smoked 1 pack a day for 30 years. No alcohol use. No drug use. Family history. Father had prostate cancer. Mother had diabetes and hypertension. Admission Exam Per Admitting Provider General-Not in acute distress Head- atraumatic Eyes- PERRL. ENT- oropharynx clear Neck- supple, no JVD. Lungs- clear to auscultation no wheezing or crackles. Heart- regular rhythm; mechanical sounds in aortic area., no gallop. Abdomen- normal bowel sounds, soft, nontender, no distension Extremities- right arm is swollen and bruise seen. Left leg is swollen Neuro- alert, oriented PERRL, no facial palsy; no dysarthria; moves extremities Discharge Exam eneral- oriented x 3, not in distress, speaks in sentences with no effort or accessory muscle use Eyes- anicteric Neck- no JVD Lungs- clear breath sounds bilaterally, no rales/wheezes Heart- normal rate, regular rhythm; no murmurs Abdomen- normal bowel sounds, nondistended, soft, no tenderness Extremities- mild edema RU and RL extremity large area of hematoma RU extremity Neuro- alert, oriented x 3; no gross focal neurologic deficits Skin- warm & dry Updated Medication List Medication Instructions Recorded Confirmed Type atorvastatin 40 mg tablet 40 mg PO DAILY 10/18/24 10/18/24 History fenofibrate micronized 134 mg 134 mg PO DAILY 10/18/24 10/18/24 History capsule gabapentin 100 mg capsule 100 mg PO HS 10/18/24 10/18/24 History lisinopril 20 mg tablet 20 mg PO DAILY 10/18/24 10/18/24 History meclizine 25 mg tablet 25 mg PO BID PRN Dizziness 10/18/24 10/18/24 History metformin 500 mg tablet 500 mg PO DAILY 10/18/24 10/18/24 History metoprolol tartrate 50 mg tablet 25 mg PO BID 10/18/24 10/18/24 History [id number] acid-vit 1 tab PO DAILY 10/18/24 10/18/24 History K-lycop 400 mcg-20 mcg-370 mcg tablet (Men's 50 Plus Multivitamin) oxybutynin chloride 10 mg 10 mg PO DAILY 10/18/24 10/18/24 History tablet,extended release 24 hr triamcinolone acetonide 0.1 % 1 applic topical BID PRN SKIN 10/18/24 10/18/24 History topical cream IRRITATIONS warfarin 5 mg tablet 5 mg PO DAILY 10/18/24 10/18/24 History enoxaparin 120 mg/0.8 mL 111 mg (0.74 mL) subcut Q12H 7 10/24/24 Rx subcutaneous syringe (Lovenox) days #10.36 mL escitalopram oxalate 10 mg tablet 5 mg (1/2 x 10 mg) PO DAILY 2 days 10/24/24 10/18/24 Rx #0 tabs mirtazapine 15 mg tablet 15 mg PO HS #30 tabs 10/24/24 Rx pantoprazole 40 mg tablet,delayed 40 mg PO DAILY 30 days #30 tabs 10/24/24 Rx release Hospital Stay Data Consultations 10/18/24 21:34 ED Decision to Admit Stat 10/19/24 07:21 Consult Vascular Surgery Routine 10/19/24 07:22 Consult Cardiology Routine 10/19/24 08:00 Consult Gastroenterology Routine 10/19/24 09:15 Consult General Surgery Routine 10/19/24 13:40 Consult Orthopedic Surgery Routine Procedures Performed Operation Date: 10/19/24 12:15 Actual Procedures p Esophagogastroduodenoscopy with biopsy. - Joesph Gordon MD Diagnostic Imagining Performed Laboratory Results WBC 4.61 K/ul (4.8-10.8) L 10/24/24 05:18 RBC 3.59 M/uL (4.70-6.10) L 10/24/24 05:18 Hgb 9.4 g/dl (14.0-18.0) L 10/24/24 05:18 Hct 29.9 % (42.0-52.0) L 10/24/24 05:18 MCV 83.3 fL (80.0-100.0) 10/24/24 05:18 MCH 26.2 pg (25.0-34.0) 10/24/24 05:18 MCHC 31.4 g/dL (32.0-36.0) L 10/24/24 05:18 RDW Std Deviation 58.2 fL (36.4-46.3) H 10/24/24 05:18 RDW Coeff of Rubin 20.1 % (11.5-14.5) H 10/24/24 05:18 Plt Count 337 K/uL (130-400) 10/24/24 05:18 MPV 9.4 fL (9.4-12.4) 10/24/24 05:18 Immature Gran % (Auto) 0.4 % 10/24/24 05:18 Neut % (Auto) 45.2 % 10/24/24 05:18 Lymph % (Auto) 33.0 % 10/24/24 05:18 [place] % (Auto) 13.4 % 10/24/24 05:18 Eos % (Auto) 6.9 % 10/24/24 05:18 Baso % (Auto) 1.1 % 10/24/24 05:18 Neut # (Auto) 2.08 K/uL (1.40-6.50) 10/24/24 05:18 Lymph # (Auto) 1.52 K/uL (1.20-3.40) 10/24/24 05:18 [place] # (Auto) 0.62 K/uL (0.11-0.59) H 10/24/24 05:18 Eos # (Auto) 0.32 K/uL (0.00-0.50) 10/24/24 05:18 Baso # (Auto) 0.05 K/uL (0.00-0.20) 10/24/24 05:18 Immature Gran # (Auto) 0.02 K/uL (0.01-0.20) 10/24/24 05:18 Polychromasia 1+ 10/24/24 05:18 Hypochromasia Present 10/18/24 19:08 Anisocytosis Present 10/24/24 05:18 Microcytosis Present 10/19/24 06:41 Ovalocytes 1+ 10/24/24 05:18 Acanthocytes (Spur) 1+ 10/18/24 19:08 PT 21.4 Seconds (9.0-12.0) H 10/24/24 05:18 INR 2.1 (0.9-1.1) H 10/24/24 05:18 APTT 25 Seconds (21-31) 10/20/24 07:20 PTT Ratio 0.9 10/20/24 07:20 Fibrinogen 357 mg/dl (184-400) 10/19/24 00:03 Heparin Anti-Xa, LM Wt < 0.10 IU/ML (< 0.10) 10/19/24 00:03 Heparin Anti-Xa, Unfract 0.31 IU/ml (0.3-0.7) 10/24/24 05:18 Sodium 134 mmol/L (136-145) L 10/24/24 05:18 Potassium 4.3 mmol/L (3.5-5.1) 10/24/24 05:18 Chloride 105 mmol/L (98-107) 10/24/24 05:18 Carbon Dioxide 26 mmol/L (21-32) 10/24/24 05:18 Anion Gap 3 (3-11) 10/24/24 05:18 BUN 11 mg/dl (6-23) 10/24/24 05:18 Creatinine 0.90 mg/dl (0.6-1.4) 10/24/24 05:18 Est Cr Clr Drug Dosing 106.8 ml/min 10/24/24 05:18 eGFR 94.19 10/24/24 05:18 BUN/Creatinine Ratio 12.2 (10-20) 10/24/24 05:18 Glucose 96 mg/dl (70-99(Fasting)) 10/24/24 05:18 POC Glucose 110 mg/dl (70-99) H 10/24/24 07:04 Calcium 9.1 mg/dl (8.6-10.3) 10/24/24 05:18 Phosphorus 2.6 mg/dl (2.5-4.9) 10/21/24 02:42 Magnesium 1.8 mg/dl (1.7-2.4) 10/23/24 05:24 Iron 29 mcg/dl (35-175) L 10/18/24 19:08 TIBC 434 mcg/dl (250-450) 10/18/24 19:08 Transferrin 310 mg/dl (200-360) 10/18/24 19:08 Transferrin % Sat 7 % (20-50) L 10/18/24 19:08 Ferritin 34.2 ng/ml (8-388) 10/18/24 19:08 Total Bilirubin 0.7 mg/dl (0.2-1.0) 10/18/24 19:08 AST 24 U/L (13-39) 10/18/24 19:08 ALT 14 U/L (7-52) 10/18/24 19:08 Alkaline Phosphatase 55 U/L (34-104) 10/18/24 19:08 Troponin I High Sens 10.3 pg/ml (0-20) 10/18/24 19:08 B-Natriuretic Peptide 96 pg/ml (0-100) 10/18/24 19:08 Total Protein 6.6 gm/dl (6.0-8.3) 10/18/24 19:08 Albumin 3.6 gm/dl (3.4-5.0) 10/18/24 19:08 Globulin 3.0 gm/dl (2.5-4.0) 10/18/24 19:08 Albumin/Globulin Ratio 1.2 (0.9-2) 10/18/24 19:08 Urine Color Yellow 10/19/24 03:00 Urine Appearance Clear (Clear) 10/19/24 03:00 Urine pH 5.0 (4.5-7.5) 10/19/24 03:00 Ur Specific [place] > 1.045 (1.000-1.030) H 10/19/24 03:00 Urine Protein Negative (Negative) 10/19/24 03:00 Urine Glucose (UA) Negative (Negative) 10/19/24 03:00 Urine Ketones Negative (Negative) 10/19/24 03:00 Urine Blood 3+ (Negative) H 10/19/24 03:00 Urine Nitrite Negative (Negative) 10/19/24 03:00 Urine Bilirubin Negative (Negative) 10/19/24 03:00 Urine Urobilinogen Negative (Negative) 10/19/24 03:00 Ur Leukocyte Esterase 1+ (Negative) H 10/19/24 03:00 Urine WBC (Auto) 11-20 /hpf (0-5) H 10/19/24 03:00 Urine RBC (Auto) >20 /hpf (0-2) H 10/19/24 03:00 U Hyaline Cast (Auto) 6-10 /lpf (0-2) H 10/19/24 03:00 U Epithel Cells (Auto) 3-5 /hpf (0-2) H 10/19/24 03:00 Urine Bacteria (Auto) None Seen (None Seen) 10/19/24 03:00 Urine Comment 10/19/24 03:00 Blood Type A Positive 10/18/24 21:03 Blood Type Recheck A Positive 10/19/24 00:03 Antibody Screen NEGATIVE 10/18/24 21:03 Crossmatch See Detail 10/18/24 21:03 Impressions Abdomen/Pelvis CT 10/18/24 18:55 Exam(s): CT ABDOMEN + PELVIS With Contrast IV Amt: 93ML OPTI 320 EXAM: CT Abdomen and Pelvis With Intravenous Contrast CLINICAL HISTORY: Reason for exam: nausea, vomiting, dizzy. TECHNIQUE: Axial computed tomography images of the abdomen and pelvis with intravenous contrast. CTDI is 37.42 mGy and DLP is 1417.76 mGy-cm. Automated exposure control was utilized for the study. A dose lowering technique was utilized adhering to the principles of ALARA. CONTRAST: Patient received 93ML OPTI 320 of IV contrast COMPARISON: CT abdomen and pelvis without contrast May 10, 2024. FINDINGS: ABDOMEN: Liver: Unremarkable. No mass. Gallbladder and bile ducts: Cholecystectomy. No ductal dilation. Pancreas: Unremarkable. No mass. No ductal dilation. Spleen: Unremarkable. No splenomegaly. Adrenals: Unremarkable. No mass. Kidneys and ureters: 6-7mm calculus in the left kidney with overlying scarring. No hydronephrosis. No ureteral dilatation or ureteral calculus. A second stone seen in the left kidney on the prior scan is not present. This is. Stomach and bowel: Unremarkable. No obstruction. No mucosal thickening. PELVIS: Appendix: No findings to suggest acute appendicitis. Bladder: Unremarkable. No mass. ABDOMEN and PELVIS: Intraperitoneal space: Unremarkable. No free air. No significant fluid collection. Bones/joints: No acute findings. Soft tissues: Small umbilical hernia containing only fat. Vasculature: Unremarkable. No abdominal aortic aneurysm. Lymph nodes: Unremarkable. No enlarged lymph nodes. IMPRESSION: No acute findings in the abdomen or pelvis. Electronically signed by: Cali Collazo MD 10/18/24 23:28 PM Chest X-Ray 10/18/24 18:55 Exam(s): XR CXR 1 VIEW EXAM: XR Chest, 1 View CLINICAL HISTORY: Reason for exam: dizzy, fall. TECHNIQUE: Frontal view of the chest. COMPARISON: No relevant prior studies available. FINDINGS: Lungs: Unremarkable. No acute infiltration, atelectasis or mass. Pleural space: Unremarkable. No pneumothorax or pleural fluid. Heart: The heart appears enlarged; however, this is likely magnified by AP portable technique. Mediastinum: Unremarkable. Normal mediastinal contour. Bones/joints: Previous sternotomy. IMPRESSION: No acute findings in the chest. Electronically signed by: Cali Collazo MD 10/18/24 22:[address] 10/18/24 18:55 Exam(s): CT HEAD Without Contrast EXAM: CT Head Without Intravenous Contrast CLINICAL HISTORY: Reason for exam: dizzy, fall. TECHNIQUE: Axial computed tomography images of the head/brain without intravenous contrast. CTDI is 37.42 mGy and DLP is 624.41 mGy-cm. Automated exposure control was utilized for the study. A dose lowering technique was utilized adhering to the principles of ALARA. COMPARISON: No relevant prior studies available. FINDINGS: Brain: No acute intracranial hemorrhage, edema or abnormal mass-effect. Ventricles: Unremarkable. No ventriculomegaly. Bones/joints: Unremarkable. No acute fracture. Soft tissues: Unremarkable. Sinuses: Unremarkable as visualized. No acute sinusitis. Mastoid air cells: Unremarkable as visualized. No mastoid effusion. IMPRESSION: No acute abnormality. Electronically signed by: Cali Collazo MD 10/18/24 22:59 PM Venous Doppler Study 10/18/24 18:55 Exam(s): US VENOUS RIGHT UPPER EXTREMITY EXAM: US Duplex Right Upper Extremity Veins CLINICAL HISTORY: Reason for exam: pain, swelling, bruising. TECHNIQUE: Real-time duplex ultrasound scan of the right upper extremity veins integrating B-mode two-dimensional vascular structure, Doppler spectral analysis, color flow Doppler imaging and compression. COMPARISON: No relevant prior studies available. FINDINGS: Very limited study due to extensive edema. No venous thrombosis is identified in the right jugular vein or the veins of the right upper extremity; however, the axillary vein is not well seen. Complex masslike structure or collection in the medial upper right arm measuring 5.4 x 4.0 x 9.0 cm. This may represent a hematoma. This is not vascular. IMPRESSION: No thrombus identified; however, it is a limited exam, particularly in the visualization of the right axillary vein. Heterogeneous masslike structure or collection in the upper arm which does not appear very vascular. This may represent a hematoma. Electronically signed by: Cali Collazo MD 10/18/24 22:48 PM Upper Extremity CTA 10/18/24 23:06 EXAM: CT angio humerus RT wo/w con CLINICAL HISTORY: Right arm hematoma. inr 10. could be active bleeding. TECHNIQUE: CT angiography study of the right arm vessels with IV contrast was performed and multiple axial sections were obtained with coronal and sagittal reconstructions. 120 ml Optiray 320 was administered. One of the following dose reduction techniques was utilized for this exam: Automated exposure control, adjustment of the mA and/or kV according to patient size, and use of iterative reconstruction. One of these 3D techniques was utilized: Maximum Intensity Pixel (MIP), 3D Reconstructed Images, Volume Rendered Images, Surface Shaded Rendering. COMPARISON: None. FINDINGS: Vessels: Right subclavian, axillary, brachial, radial, and ulnar arteries are patent without evidence of stenosis, occlusion, dissection, or pseudoaneurysm. No active arterial contrast extravasation. Musculoskeletal: Hypodense intramuscular collection within the biceps muscle belly of the upper arm, measuring approximately 54 × 37 mm, with surrounding muscle edema. The collection demonstrates faint hyperdensities, measuring 38 HU pre-contrast and 62 HU post-contrast, findings suggestive of active bleeding, likely venous in origin. No acute fracture or destructive bony lesion. Soft tissues: Marked diffuse subcutaneous soft tissue edema involving the right upper arm, extending into adjacent fascial planes. No subcutaneous emphysema or foreign body. Other: Surrounding fat planes are partially obscured by edema. No abnormal lymphadenopathy identified in the scanned field. IMPRESSION: 1. Intramuscular hematoma within the right biceps muscle belly, with pre- to post-contrast enhancement (38 ? 62 HU), suggestive of active bleeding, likely venous in origin. 2. Marked diffuse subcutaneous soft tissue edema of the right upper arm. 3. No CT angiographic evidence of arterial injury, pseudoaneurysm, or active arterial contrast extravasation. Electronically signed by Addi Rico 10-19-2024 02:34 AM Pending Results Patient Have Any Pending Studies at Discharge: No Discharge Instructions Given to Patient (Per Discharging Provider) PLEASE REFER TO YOUR NEW MEDICATION LIST AND FOLLOW INSTRUCTIONS CAREFULLY. YOUR NEW MEDICATIONS INCLUDE: Decrease escitalopram to 5mg daily for 2 more days then stop Start mirtazapine 15mg HS for mood. Start Protonix 40 mg daily, 30 minutes before breakfast, for gastritis. Stop omeprazole. Do not take medications other class of NSAIDs including ibuprofen, naproxen, etc. Check your INR tomorrow and on Sunday. Use Lovenox injections until your INR is 2.5 or above. If your INR is >3.5, hold coumadin and contact coumadin clinic immediately for advice. PLEASE CALL YOUR PRIMARY CARE PHYSICIAN OR RETURN TO THE ER IF WITH WORSENING OF SYMPTOMS, INCLUDING black or bloody stools, abdominal pain, nausea vomiting, any bleeding, worsening anxiety or depression symptoms, etc. FOLLOW UP WITH PRIMARY CARE PHYSICIAN OUTLINED ABOVE. FOLLOW UP WITH COUMADIN CLINIC ON SUNDAY. Total Time Total Time Spent Total Time Spent (In Minutes): 55 minutes
== END 2024-10-24 11:28 | disposition home or self-care (01) | DRG 812 ==
LOC: ED 18:28 → SUATTDRO 23:12 → 2S 23:12